=== PATIENT | male | born 1970 | race Caucasian/White ===

== ENCOUNTER 2016-12-18 20:32 | Emergency (ER) | payer MEDICAID, MEDICARE ==
[2016-12-18 21:00] VITALS: BP 138/68
--- NOTE | 2016-12-18 21:14 | UC ---
Dental HPI - HPI Summary HPI Summary: The patient comes in today for: 1. Second to last upper left molar: Onset: six month to a year. Palliative/provocative: Meditation and sucking on a tea bag and Vicodin helps. Quality: Ache Region/radiation: Second to back left upper molar. Severity: 06/26 Time: Constant. Associated symptoms: He has no dental appointment at this time. Fevers: None. Last dental visit: "years." He came via a bus and bike. Primary care provider: Dr. Shah. He states that he takes Adderal. He has a paper which lists a diagnosis of ADHD, schizoaffective disorder, anxiety and depression. According to his I- stop list, he only got one dextroamp-amphet ER 30 mg once on 12-15-2016. He got the same--only 20 mg back in April of 2016, for five days. And some episodically before that--all by different physicians. The patient got hydrocodone-acetaminophen 10-325 #120/30 days supply back on 12-07-16. I called Dr. Shah's office and got Dr. Goodwin. Case was discussed and the decision was only to give him a ketorolac injection--no adderal and not narcotic. * - History of Current Complaint Chief Complaint: UCDentalProblem Stated Complaint: TOOTH PAIN AND MED REFILL Time Seen by Provider: 12/18/16 21:06 Hx Obtained From: Patient - Allergies/Home Medications Allergies/Adverse Reactions: Allergies Allergy/AdvReac Type Severity Reaction Status Date / Time Penicillins [PCN] Allergy Unknown Verified 01/10/16 18:38 Reaction Details Shellfish Allergy Allergy Unknown Verified 01/10/16 18:38 Reaction Details Home Medications: Home Medications Gabapentin TAB(NF) [Neurontin 600 mg TAB(NF)] 1 tab PO TID 12/18/16 [History Confirmed 12/18/16] Hydrocodone-Acetaminophen [Hydrocodone/Acetaminophen 10-325 mg] 1 tab PO QID PRN 12/18/16 [History Confirmed 12/18/16] Olanzapine [Zyprexa Zydis 20 MG] 1 tab PO DAILY 12/18/16 [History Confirmed 12/01] PMH/Surg Hx/FS Hx/Imm Hx Previously Healthy: No - He states that he has ADHD and is supposed to be on adderal. Endocrine History Of: Denies: Diabetes, Thyroid Disease, Hyperthyroidism, Hypothyroidism, Dyslipidemia Cardiovascular History Of: Denies: Cardiac Disorders, Hypertension, Pacemaker/ICD, Myocardial Infarction , Congestive Heart Failure, Atrial Fibrillation, Deep Vein Thrombosis, Bleeding Disorders Respiratory History Of: Reports: Asthma - Albuterol inhaler episodically. Denies: COPD, Bronchitis, Pneumonia, Pulmonary Embolism GI/ History Of: Denies: Gastroesophageal Reflux, Ulcer, Gastrointestinal Bleed, Gall Bladder Disease, Kidney Stones, Diverticulitis, Renal Disease, Urosepsis Neurological History Of: Reports: Migraine Denies: TIA, CVA, Dementia, Seizures Psychological History Of: Reports: Anxiety, Depression, Schizophrenia Denies: Post Traumatic Stress Disorder Cancer History Of: Denies: Lung Cancer, Colorectal Cancer, Breast Cancer, Prostate Cancer, Cervical Cancer Other History Of: Negative For: HIV, Hepatitis B, Hepatitis C, Anticoagulant Therapy - Surgical History Surgical History: Yes Surgery Procedure, Year, and Place: Appendectomy, HERNIA REPAIR - Family History Known Family History: Positive: Hypertension, Other - Cancer in father. Mother has Alzheimers - Social History Occupation: Unemployed Alcohol Use: None Alcohol Amount: took a shot of vodka tonight Substance Use Type: None, Prescribed Substance Use Comment - Amount & Last Used: now vicodin Smoking Status (MU): Heavy Every Day Tobacco Smoker Amount Used/How Often: 1/2 ppd Length of Time of Smoking/Using Tobacco: 25 years Have You Smoked in the Last Year: Yes Household Exposure Type: Cigarettes - Immunization History Most Recent Influenza Vaccination: Pt unable to recall Most Recent Tetanus Shot: pt unable to recall Most Recent Pneumonia Vaccination: N/A Review of Systems Constitutional: Negative Skin: Negative Eyes: Negative ENT: Negative Respiratory: Negative Cardiovascular: Negative Gastrointestinal: Negative Genitourinary: Negative Motor: Negative Neurovascular: Negative All Other Systems Reviewed And Are Negative: Yes Physical Exam Triage Information Reviewed: Yes Appearance: Well-Appearing, No Pain Distress, Well-Nourished Vital Signs: Initial Vital Signs Temp 99 F 12/18/16 20:49 Pulse 68 12/18/16 20:49 Resp 18 12/18/16 20:49 BP 138/68 12/18/16 20:49 Pulse Ox 98 12/18/16 20:49 Vital Signs Reviewed: Yes Eyes: Positive: Conjunctiva Clear. Negative: Discharge ENT: Positive: Hearing grossly normal, TMs normal. Negative: Pharyngeal erythema, Nasal congestion, Nasal drainage, TM bulging, TM dull, TM red, Tonsillar swelling, Tonsillar exudate Dental: Positive: Percussion Tenderness @ - #14, Gross Decay/Caries @. Negative : Dental Fracture @ Neck: Positive: Supple, Nontender, No Lymphadenopathy. Negative: Nuchal Rigidity Respiratory: Positive: Chest non-tender, Lungs clear, No respiratory distress, No accessory muscle use. Negative: Crackles, Wheezing Cardiovascular: Positive: RRR, No Murmur Abdomen Description: Positive: Nontender, No Organomegaly, Soft. Negative: Distended, Guarding Musculoskeletal: Positive: Strength Intact, ROM Intact Neurological: Positive: Alert, Muscle Tone Normal Psychological: Positive: Age Appropriate Behavior, Consolable Skin: Negative: rashes, breakdown Dental Complaint Course/Dx - Course Course Of Treatment: Patient was told that I called Dr. Shah's office and was able to talk to Dr. Goodwin regarding his request for adderal and hydrocodone/ acetaminophen. Because he got a 30 day supply renewed on 12-07-16, and had not been on regular adderal, he won't be getting that from us--he has to get it from Dr. Shah's office. I told the patient this. He acquiesed to this. Will give him a ketorolac injection instead. - Differential Dx/Diagnosis Differential Diagnosis/Dx: Dental Abscess, Dental Caries Provider Diagnoses: Pulpitits. Schizoaffective disorder. Discharge - Discharge Plan Condition: Stable Disposition: HOME Patient Education Materials: Dental Abscess (ED), Dental Caries (ED) Referrals: Prasad Shah MD [Primary Care Provider] - As Soon As Possible
[2016-12-18] MEDS ORDERED: Ketorolac INJ* 60 MG/2 ML VIAL IM ONE (21:47)
== END 2016-12-18 22:21 | disposition home or self-care (01) ==
LOC: UCEAST 20:32
DX: K04.01 Reversible pulpitis (principal); F20.9 Schizophrenia, unspecified; J45.909 Unspecified asthma, uncomplicated; Z88.0 Allergy status to penicillin; F17.210 Nicotine dependence, cigarettes, uncomplicated
CPT/HCPCS: 99212; G0463; J1885

== ENCOUNTER 2017-01-18 20:41 | Emergency (ER) | payer MEDICARE, MEDICAID ==
[2017-01-18] MEDS ORDERED: Clindamycin CAP* 150 MG PO ONE ×2 (22:38)
[2017-01-18] MEDS ORDERED: oxyCODONE/Acetamin 5/325 MG* TAB PO ONE (22:39)
[2017-01-18] MEDS ORDERED: clonazePAM TAB(*) 1 MG PO ONE ×2 (22:40→22:56)
--- NOTE | 2017-01-18 22:46 | ED ---
Constantin Guajardo Anna, scribed for Delgado Cabral MD on 01/18/17 at 2237 . Throat Pain/Nasal Congestion - HPI Summary HPI Summary: Patient is a 46 y/o male coming to [facility] presenting with the sudden onset of acute on chronic, constant dental pain that began today. He describes the severity of the pain as 9/10. He is additionally anxious. He additionally reports having a migraine secondary to the dental pain. He denies fever. His history is significant for fibromyalgia. Patient medications have been reviewed this visit. - History of Current Complaint Chief Complaint: EDDentalPain Time Seen by Provider: 01/18/17 22:29 Hx Obtained From: Patient Onset/Duration: Sudden Onset, Lasting Days, Still Present Severity: Moderate - Allergies/Home Medications Allergies/Adverse Reactions: Allergies Allergy/AdvReac Type Severity Reaction Status Date / Time Penicillins [PCN] Allergy Unknown Verified 01/18/17 20:55 Reaction Details Shellfish Allergy Allergy Unknown Verified 01/18/17 20:55 Reaction Details PMH/Surg Hx/FS Hx/Imm Hx Endocrine/Hematology History: Denies: Hx Anticoagulant Therapy, Hx Diabetes, Hx Thyroid Disease Cardiovascular History: Denies: Hx Congestive Heart Failure, Hx Deep Vein Thrombosis, Hx Hypertension , Hx Myocardial Infarction, Hx Pacemaker/ICD Respiratory History: Reports: Hx Asthma - Albuterol inhaler episodically. Denies: Hx Chronic Obstructive Pulmonary Disease (COPD), Hx Lung Cancer, Hx Pneumonia, Hx Pulmonary Embolism GI History: Reports: Other GI Disorders - Hepatitis B Denies: Hx Gall Bladder Disease, Hx Gastrointestinal Bleed, Hx Ulcer, Hx Urosepsis History: Denies: Hx Kidney Stones, Hx Renal Disease Musculoskeletal History: Reports: Hx Fibromyalgia - 2005 ER visit for medication Neurological History: Reports: Hx Migraine Denies: Hx Dementia, Hx Seizures, Hx Transient Ischemic Attacks (TIA) Psychiatric History: Reports: Hx Anxiety, Hx Depression, Hx Community Mental Health Tx - seen at [facility], Hx Schizophrenia Denies: Hx Eating Disorder, Hx Panic Disorder, Hx of Violent Episodes Against Others - Surgical History Surgery Procedure, Year, and Place: Appendectomy, HERNIA REPAIR - Immunization History Date of Tetanus Vaccine: pt states w/in last 10 years Date of Influenza Vaccine: 2013 Infectious Disease History: Denies: Hx Clostridium Difficile, Hx Hepatitis, Hx Human Immunodeficiency Virus (HIV), Hx of Known/Suspected MRSA, Hx Shingles, Hx Tuberculosis, Hx Known/ Suspected VRE, Hx Known/Suspected VRSA, History Other Infectious Disease, Traveled Outside the [place] in Last 30 Days - Family History Known Family History: Positive: Hypertension, Other - Cancer in father. Mother has Alzheimers - Social History Alcohol Use: None Alcohol Amount: took a shot of vodka tonight Substance Use Type: Reports: None, Prescribed Substance Use Comment - Amount & Last Used: now vicodin Hx Tobacco Use: Yes Smoking Status (MU): Heavy Every Day Tobacco Smoker Amount Used/How Often: 1/2 ppd Length of Time of Smoking/Using Tobacco: 25 years Have You Smoked in the Last Year: Yes Review of Systems Negative: Fever Positive: Dental Pain Positive: Headache Positive: Anxious All Other Systems Reviewed And Are Negative: Yes Physical Exam Triage Information Reviewed: Yes Vital Signs On Initial Exam: Initial Vitals Temp Pulse Resp BP Pulse Ox 98.1 F 82 16 111/75 97 01/18/17 20:50 01/18/17 20:50 01/18/17 20:50 01/18/17 20:50 01/18/17 20:50 Vital Signs Reviewed: Yes Appearance: Positive: Well-Appearing, No Pain Distress Skin: Positive: Warm, Skin Color Reflects Adequate Perfusion, Dry Head/Face: Positive: Normal Head/Face Inspection Eyes: Positive: EOMI, NAIN ENT: Positive: Normal ENT inspection Dental: Positive: Other - Upper left molar has a tawny with some gingival swelling Neck: Positive: Supple, Nontender Respiratory/Lung Sounds: Positive: Clear to Auscultation, Breath Sounds Present Cardiovascular: Positive: RRR Abdomen Description: Positive: Nontender, Soft Bowel Sounds: Positive: Present Musculoskeletal: Positive: Normal, Strength/ROM Intact Neurological: Positive: Normal, Sensory/Motor Intact, Alert, Oriented to Person Place, Time Psychiatric: Positive: Anxious Diagnostics - Vital Signs Vital Signs Temp Pulse Resp BP Pulse Ox 01/18/17 20:50 98.1 F 82 16 111/75 97 - Laboratory Lab Statement: Any lab studies that have been ordered have been reviewed, and results considered in the medical decision making process. EENT Course/Dx - Course Course Of Treatment: NO CRITICAL CARE TIME Assessment/Plan: DISCHARGE HOME STABLE - Diagnoses Provider Diagnoses: Pain, dental, Anxiety Discharge - Discharge Plan Condition: Stable Disposition: HOME Prescriptions: Clindamycin Cap(NF) [Cleocin 300 mg Cap(NF)] 300 mg PO Q6H #38 cap oxyCODONE/Acetamin 5/325 MG* [Percocet 5/325 TAB*] 1 tab PO Q6H PRN #10 tab MDD 4 PRN Reason: Pain Patient Education Materials: Toothache (ED), Anxiety (ED) Referrals: Prasad Shah MD [Primary Care Provider] - Additional Instructions: FOLLOW UP WITH YOUR DOCTOR AND DENTIST. RETURN TO THE EMERGENCY DEPARTMENT FOR ANY WORSENING OF YOUR CONDITION OR QUESTIONS OR CONCERNS. The documentation as recorded by the Constantin multani Anna accurately reflects the service I personally performed and the decisions made by me, Delgado Cabral MD.
[2017-01-18] MEDS ORDERED: clonazePAM TAB(*) 0.5 MG PO ONE (23:00)
[2017-01-18 23:25] VITALS: BP 126/78
== END 2017-01-18 23:22 | disposition home or self-care (01) ==
LOC: ED 20:41
DX: K08.89 Other specified disorders of teeth and supporting structures (principal); R51 Headache; F41.9 Anxiety disorder, unspecified; F17.210 Nicotine dependence, cigarettes, uncomplicated
CPT/HCPCS: 99282; A9270-GY

== ENCOUNTER 2017-01-22 22:38 | Emergency (ER) | payer MEDICARE, MEDICAID ==
[2017-01-22 23:16] VITALS: BP 133/81
[2017-01-23] MEDS ORDERED: LORazepam TAB(*) 1 MG PO ONE (00:37)
--- NOTE | 2017-01-25 18:51 | ED ---
Throat Pain/Nasal Congestion - HPI Summary HPI Summary: Patient presents to ED with CC of dental pain. However, when provider entered the room, patient was very stuporous and unable to fully open his eyes and respond appropriately. When repeatedly asked why he was acting altered, he stated it was d/t pain, but could not elaborate. It was apparent to the provider that the patient was on one or multiple altering medications. He states he is homeless and was in the ED a few days ago and was treated for a dental infection which is failing to improve and he is requesting pain medicine. He is also stating he is very anxious and needs his anti-anxiety medications - asking for a 30 days supply since he is unable to see his PCP until February. He does not appear to be anxious, and instead is falling asleep on physical exam. Provider was able to read through previous visits to see what he has been treated with and ISTOP reveals he recently received: 01/18/2017 01/19/2017 oxycodone-acetaminophen 5-325 mg tablet 10 3 Delgado Cabral MD 01/16/2017 01/17/2017 eszopiclone 3 mg tablet 30 30 Prasad Shah MD 01/05/2017 01/08/2017 clonazepam 2 mg tablet 90 30 Kurt Canales MD 01/05/2017 01/06/2017 hydrocodone-acetaminophen 10-325 mg tablet 120 30 Kurt Canales MD Provider explained to patient that he recently received refills on pain medicine and anxiety medication despite him stating he had not received any medication and she would not be able to refill his prescriptions or give him extra medications since he already has several. It was shown to patient he actually saw his PCP 19 days ago and that he received all the medication which he was asking for today. To this he became very agitated and angry stating the provider was "profiling" him because he was homeless. Provider explained that she could not provide the medications d/t his recent refill and that he should still have several of the doses from both the pain medications (norco) and clomazepam left. Provider apologized for not being able to give the medications , but was happy to continue the physical exam and treat appropriately. He again becomes very angry and begins to leave. He requests a cab. RN made aware and patient leaves. - History of Current Complaint Chief Complaint: EDDentalPain Time Seen by Provider: 01/22/17 23:02 Hx Obtained From: Patient Hx From Patient Unobtainable Due To: Altered Mental Status Onset/Duration: Gradual Onset Severity: Severe - Epiglottits Risk Factors Epiglottis Risk Factors: Negative - Allergies/Home Medications Allergies/Adverse Reactions: Allergies Allergy/AdvReac Type Severity Reaction Status Date / Time Penicillins [PCN] Allergy Unknown Verified 01/18/17 20:55 Reaction Details Shellfish Allergy Allergy Unknown Verified 01/18/17 20:55 Reaction Details PMH/Surg Hx/FS Hx/Imm Hx Previously Healthy: Yes Endocrine/Hematology History: Denies: Hx Anticoagulant Therapy, Hx Diabetes, Hx Thyroid Disease Cardiovascular History: Denies: Hx Congestive Heart Failure, Hx Deep Vein Thrombosis, Hx Hypertension , Hx Myocardial Infarction, Hx Pacemaker/ICD Respiratory History: Reports: Hx Asthma - Albuterol inhaler episodically. Denies: Hx Chronic Obstructive Pulmonary Disease (COPD), Hx Lung Cancer, Hx Pneumonia, Hx Pulmonary Embolism GI History: Reports: Other GI Disorders - Hepatitis B Denies: Hx Gall Bladder Disease, Hx Gastrointestinal Bleed, Hx Ulcer, Hx Urosepsis History: Denies: Hx Kidney Stones, Hx Renal Disease Musculoskeletal History: Reports: Hx Fibromyalgia - 2006 ER visit for medication Neurological History: Reports: Hx Migraine Denies: Hx Dementia, Hx Seizures, Hx Transient Ischemic Attacks (TIA) Psychiatric History: Reports: Hx Anxiety, Hx Depression, Hx Community Mental Health Tx - seen at [facility], Hx Schizophrenia Denies: Hx Eating Disorder, Hx Panic Disorder, Hx of Violent Episodes Against Others - Surgical History Surgery Procedure, Year, and Place: Appendectomy, HERNIA REPAIR Hx Anesthesia Reactions: No - Immunization History Date of Tetanus Vaccine: pt states w/in last 10 years Date of Influenza Vaccine: 2014 Immunizations Up to Date: Unable to Obtain/Confirm Infectious Disease History: No Infectious Disease History: Denies: Hx Clostridium Difficile, Hx Hepatitis, Hx Human Immunodeficiency Virus (HIV), Hx of Known/Suspected MRSA, Hx Shingles, Hx Tuberculosis, Hx Known/ Suspected VRE, Hx Known/Suspected VRSA, History Other Infectious Disease, Traveled Outside the [place] in Last 30 Days - Family History Known Family History: Positive: None - reviewed & noncontributory, Hypertension , Other - Cancer in father. Mother has Alzheimers - Social History Occupation: Employed Part-time Lives: [facility] - [facility] Alcohol Use: None Alcohol Amount: took a shot of vodka tonight Hx Substance Use: Yes Substance Use Type: Reports: Prescribed Substance Use Comment - Amount & Last Used: now vicodin Hx Tobacco Use: Yes Smoking Status (MU): Heavy Every Day Tobacco Smoker Amount Used/How Often: 1/2 ppd Length of Time of Smoking/Using Tobacco: 25 years Have You Smoked in the Last Year: Yes Review of Systems Constitutional: Negative Eyes: Negative Positive: Dental Pain Respiratory: Negative Positive: no symptoms reported, see HPI Musculoskeletal: Negative Positive: Slurred Speech Positive: Anxious All Other Systems Reviewed And Are Negative: Yes Physical Exam Triage Information Reviewed: Yes Vital Signs On Initial Exam: Initial Vitals Temp Pulse Resp BP Pulse Ox 98.1 F 87 16 142/80 97 01/22/17 22:42 01/22/17 22:42 01/22/17 22:42 01/22/17 22:42 01/22/17 22:42 Vital Signs Reviewed: Yes Completion Of Physical Exam Limited Due To: Altered Mental Status Appearance: Positive: Well-Appearing, Well-Nourished Skin: Positive: Warm, Skin Color Reflects Adequate Perfusion Head/Face: Positive: Normal Head/Face Inspection, Temporal Artery Tenderness Neck: Positive: Nontender, No Lymphadenopathy Respiratory/Lung Sounds: Positive: Breath Sounds Present Cardiovascular: Positive: Normal Musculoskeletal: Positive: Strength/ROM Intact Neurological: Positive: Abnormal Gait, Disoriented, Slurred Speech, Other - not oriented to time, but oriented to person and place Psychiatric: Positive: Normal AVPU Assessment: Verbal (Reponds To) - [place] Coma Scale Best Eye Response: 4 - Spontaneous Best Motor Response: 6 - Obeys Commands Best Verbal Response: 4 - Confused Coma Scale Total: 15 Diagnostics - Vital Signs Vital Signs Temp Pulse Resp BP Pulse Ox 01/22/17 23:12 98.4 F 72 17 133/81 01/22/17 22:51 98.1 F 87 16 142/80 97 01/22/17 22:42 98.1 F 87 16 142/80 97 - Laboratory Lab Statement: Any lab studies that have been ordered have been reviewed, and results considered in the medical decision making process. EENT Course/Dx - Course Course Of Treatment: See above in HPI for full course of treatment. - Differential Diagnoses Differential Diagnoses: Other - dental pain, body pain, medication seeking, refills - Diagnoses Provider Diagnoses: Pain, dental Discharge - Discharge Plan Condition: Stable Disposition: HOME Referrals: Prasad Shah MD [Primary Care Provider] - Additional Instructions: Follow up with PCP. You have been diagnosed with dental pain and anxiety. Salt water rinses several times per day will improve healing time. Ibuprofen 600mg three times daily with meals for discomfort. Follow up with a dentist for routine care to prevent recurrence of infections. If fever, worsening pain or swelling develops, see your PCP, dentist or come back to the Emergency Department.
== END 2017-01-23 00:55 | disposition home or self-care (01) ==
LOC: ED 22:38
DX: K08.89 Other specified disorders of teeth and supporting structures (principal); F17.210 Nicotine dependence, cigarettes, uncomplicated
CPT/HCPCS: 99283

== ENCOUNTER 2017-03-03 20:18 | Emergency (ER) | payer MEDICARE, MEDICAID ==
[2017-03-03] MEDS ORDERED: NS 0.9% 1000 ML* 1,000 ML IV ONE (20:48)
[2017-03-03] MEDS ORDERED: clonazePAM TAB(*) 1 MG PO ONE ×2 (20:48→21:41)
[2017-03-03] MEDS ORDERED: diPHENhydraMINE IV* 50 MG/ML 1 ml VIAL (BENADRYL) IV ONE (20:48)
[2017-03-03] MEDS ORDERED: Ketorolac INJ* 30 MG/ML 1 ML VIAL IV PUSH ONE (20:49)
[2017-03-03] MEDS ORDERED: Ondansetron INJ* 2 MG/ML VIAL IV ONE (20:49)
--- NOTE | 2017-03-03 20:55 | ED ---
Headache - HPI Summary HPI Summary: 46M presents with typically migraine for a day. He states he took a fioricet without relief. He states the headache wraps around to the back of his head and is throbbing in nature which is different. He states this is not the worst headache of his life. He admits to photophobia. He states he is sick with an upper resp infection and is currently on a steroid and a zpack for the infection. He admits to a cough but denies any SOB. He has been using his inhaler. Also admits to anxiety and says that he has ran out of his klonipin. He states he has been more anxious and has been taking more of his klonipin. He says he spoke to his primary about running and they are suppose to refill it. - History Of Current Complaint Chief Complaint: EDHeadache Stated Complaint: MIGRAINE/ANXIETY Time Seen by Provider: 03/03/17 20:34 - Allergies/Home Medications Allergies/Adverse Reactions: Allergies Allergy/AdvReac Type Severity Reaction Status Date / Time Penicillins [PCN] Allergy Unknown Verified 03/03/17 20:40 Reaction Details Shellfish Allergy Allergy Unknown Verified 03/03/17 20:40 Reaction Details PMH/Surg Hx/FS Hx/Imm Hx Endocrine/Hematology History: Denies: Hx Anticoagulant Therapy, Hx Diabetes, Hx Thyroid Disease Cardiovascular History: Denies: Hx Congestive Heart Failure, Hx Deep Vein Thrombosis, Hx Hypertension , Hx Myocardial Infarction, Hx Pacemaker/ICD Respiratory History: Reports: Hx Asthma - Albuterol inhaler episodically. Denies: Hx Chronic Obstructive Pulmonary Disease (COPD), Hx Lung Cancer, Hx Pneumonia, Hx Pulmonary Embolism GI History: Reports: Other GI Disorders - Hepatitis B Denies: Hx Gall Bladder Disease, Hx Gastrointestinal Bleed, Hx Ulcer, Hx Urosepsis History: Denies: Hx Kidney Stones, Hx Renal Disease Musculoskeletal History: Reports: Hx Fibromyalgia - 2006 ER visit for medication Neurological History: Reports: Hx Migraine Denies: Hx Dementia, Hx Seizures, Hx Transient Ischemic Attacks (TIA) Psychiatric History: Reports: Hx Anxiety, Hx Depression, Hx Community Mental Health Tx - seen at [facility], Hx Schizophrenia Denies: Hx Eating Disorder, Hx Panic Disorder, Hx of Violent Episodes Against Others - Surgical History Surgery Procedure, Year, and Place: Appendectomy, HERNIA REPAIR Hx Anesthesia Reactions: No - Immunization History Date of Tetanus Vaccine: pt states w/in last 10 years Date of Influenza Vaccine: 2013 Infectious Disease History: No Infectious Disease History: Denies: Hx Clostridium Difficile, Hx Hepatitis, Hx Human Immunodeficiency Virus (HIV), Hx of Known/Suspected MRSA, Hx Shingles, Hx Tuberculosis, Hx Known/ Suspected VRE, Hx Known/Suspected VRSA, History Other Infectious Disease, Traveled Outside the [place] in Last 30 Days - Family History Known Family History: Positive: None - reviewed & noncontributory, Hypertension , Other - Cancer in father. Mother has Alzheimers - Social History Alcohol Use: Rare Alcohol Amount: took a shot of vodka tonight Hx Substance Use: Yes Substance Use Type: Reports: Marijuana, Prescribed Substance Use Comment - Amount & Last Used: now vicodin Hx Tobacco Use: Yes Smoking Status (MU): Heavy Every Day Tobacco Smoker Amount Used/How Often: 1/2 ppd Length of Time of Smoking/Using Tobacco: 25 years Have You Smoked in the Last Year: Yes Review of Systems Negative: Fever Positive: Nasal Discharge Negative: Chest Pain Positive: Cough. Negative: Shortness Of Breath Negative: Abdominal Pain Positive: Headache All Other Systems Reviewed And Are Negative: Yes Physical Exam Triage Information Reviewed: Yes Vital Signs On Initial Exam: Initial Vitals Temp Pulse Resp BP Pulse Ox 97.8 F 90 18 127/78 99 03/03/17 20:21 03/03/17 20:21 03/03/17 20:21 03/03/17 20:21 03/03/17 20:21 Vital Signs Reviewed: Yes Appearance: Positive: Pain Distress Skin: Positive: Warm, Dry Head/Face: Positive: Normal Head/Face Inspection Eyes: Positive: Normal, EOMI, NAIN, Conjunctiva Clear ENT: Positive: Normal ENT inspection, Pharynx normal, Nasal congestion, TMs normal Neck: Positive: Supple, Nontender, No Lymphadenopathy Respiratory/Lung Sounds: Positive: Clear to Auscultation, Breath Sounds Present Cardiovascular: Positive: Normal, RRR Neurological: Positive: Sensory/Motor Intact, Alert, Oriented to Person Place, Time, CN Intact II-III, Heel to Toe, Finger to Nose - [place] Coma Scale Best Eye Response: 4 - Spontaneous Best Motor Response: 6 - Obeys Commands Best Verbal Response: 5 - Oriented Diagnostics - Vital Signs Vital Signs Temp Pulse Resp BP Pulse Ox 03/03/17 20:40 97.8 F 90 18 127/78 99 03/03/17 20:21 97.8 F 90 18 127/78 99 - Laboratory Result Diagrams: 03/03/17 20:55 03/03/17 20:55 Lab Statement: Any lab studies that have been ordered have been reviewed, and results considered in the medical decision making process. - CT brain CT Interpretation: Positive (See Comments) - IMPRESSION: Mild degree of paranasal sinus mucosal disease, slightly improved when compared to the previous CT of the brain, without CT evidence of acute intracranial abnormality. CT Interpretation Completed By: Radiologist Re-Evaluation - Re-Evaluation First Eval Change: Improved Comment: feel asleep and says migraine is almost gone Headache Course/Dx - Course Course Of Treatment: 46M presents with migraine headahce for a day. says only think different is it is more throbbing in nature than usually so got CT which was normal. patient currently has upper resp infection so that explains wbc do not suspect patient has mengitidis. normal neuro exam. gave doreen told to follow up with primary about anxiety medications. patient given sumatriptan, benadryl, toradol, and zofran and migraine improved. suspect due to upper resp infection causing migraine. patient understands and agrees with plan - Diagnoses Differential Diagnosis/HQI/PQRI: Migraine, Sinus Headache, Tension Headache Provider Diagnoses: Headache Discharge - Discharge Plan Condition: Good Disposition: HOME Patient Education Materials: Migraine Headache (ED) Referrals: Prasad Shah MD [Primary Care Provider] - Additional Instructions: Take Tylenol or ibuprofen for pain every 6 hours IF migraine returns take a Benadryl, zofran and ibuprofen and drink some fluids Can also try sudafed for nasal congestion Follow up with primary about anxiety and headache within 2 days Return to ED if develop fever, neck stiffness, or any new or worsening symptoms
[2017-03-03 21:01] LABS: Hematocrit 41 % (42-52); Hemoglobin 13.4 g/dl (14.0-18.0); Mean Corpuscular HGB Conc 33 g/dl (31-36); Mean Corpuscular Hemoglobin 30 pg (27-31); Mean Corpuscular Volume 91 fL (80-94); Mean Platelet Volume 8 um3 (7.4-10.4); Red Blood Count 4.47 10^6/ul (4.0-5.4); Red Cell Distribution Width 16 % (10.5-15); White Blood Count 14.5 10^3/ul (3.5-10.8)
[2017-03-03 21:34] LABS: Albumin 4.4 g/dL (3.2-5.2); BUN/Creatinine Ratio 8.9 (8-20); EGFR African American 117.4 (>60); EGFR Non-African American 91.3 (>60); Globulin 2.1 g/dL (2-4); Potassium 3.4 mmol/L (3.5-5.0); Total Bilirubin 0.3 mg/dL (0.2-1.0); Total Protein 6.5 g/dL (6.4-8.9)
[2017-03-03] MEDS ORDERED: SUMAtriptan TAB* 50 MG PO ONE (21:45)
[2017-03-03] MEDS ORDERED: clonazePAM TAB(*) 0.5 MG PO ONE ×3 (22:00)
--- NOTE | 2017-03-03 22:06 | RAD ---
INDICATION: Posterior headache COMPARISON: Most recent CT of the brain is dated December 21, 2015 TECHNIQUE: Contiguous axial sections of the brain were obtained from the skull base to the vertex without contrast. FINDINGS: The ventricles, cisterns and sulci are within normal limits. The cordova-white matter differentiation is adequately maintained and there is no sulcal effacement. No significant focal abnormality or mass effect is present. There is no evidence for intracranial hemorrhage. No significant focal osseous abnormality is present. Again seen are frothy secretions in the right maxillary sinus. There is a small amount of fluid in the dependent portion of the left sphenoid sinus. The remaining paranasal sinuses are adequately aerated. IMPRESSION: Mild degree of paranasal sinus mucosal disease, slightly improved when compared to the previous CT of the brain, without CT evidence of acute intracranial abnormality.
[2017-03-03] MEDS ORDERED: Ondansetron ODT TAB* 4 MG PO ONE (23:11)
[2017-03-03 23:48] VITALS: BP 129/69
== END 2017-03-03 23:57 | disposition home or self-care (01) ==
LOC: ED 20:18
DX: R51 Headache (principal); R05 Cough; F17.210 Nicotine dependence, cigarettes, uncomplicated
CPT/HCPCS: 36415; 70450; 80053; 83735; 85025; 86141; 96374; 96375; 99282; A9270-GY; J1200; J1885; J2405

== ENCOUNTER → 2017-03-22 06:40 | Emergency (ER) | payer MEDICARE, MEDICAID ==
[~2017-03-22 06:40] MED LIST: Albuterol 2.5 MG/3 ML NEB.SOL* (0.083%) INH ONE
--- NOTE | 2017-03-22 08:01 | RAD ---
INDICATION: Cough COMPARISON: December 21, 2015 TECHNIQUE: PA and lateral dual-energy views were obtained. FINDINGS: Bones/Soft Tissues: There are no acute bony findings. Cardiomediastinal: The cardiomediastinal silhouette is normal. Lungs: There are no infiltrates. Pleura: There are no pleural effusions. Other: None IMPRESSION: NO ACTIVE DISEASE.
[2017-03-22 10:05] VITALS: BP 127/89
--- NOTE | 2017-03-25 08:39 | ED ---
Augustine Guajardo Salem, scribed for Barrett Robbins MD on 03/22/17 at 0814 . Shortness of Breath - HPI Summary HPI Summary: Patient is a 46 y/o M who presents to the ED with SOB and coughing. He states that he had PNA last summer and was hospitalized in [facility], but that he never really recovered from it. He reports night sweats and congestion, but denies rhinorrhea or sore throat. PMHx significant for asthma. Pt states that he uses Albuterol for his asthma. - History of Current Complaint Chief Complaint: EDShortnessOfBreath Time Seen by Provider: 03/22/17 08:10 Hx Obtained From: Patient Onset/Duration: Gradual Onset, Still Present Timing: Constant Current Severity: Moderate Aggrevating Factors: Nothing Alleviating Factors: Nothing Associated Signs & Symptoms: Cough (Nonproductive) - Allergy/Home Medications Allergies/Adverse Reactions: Allergies Allergy/AdvReac Type Severity Reaction Status Date / Time Penicillins [PCN] Allergy Unknown Verified 03/22/17 06:56 Reaction Details Shellfish Allergy Allergy Unknown Verified 03/22/17 06:56 Reaction Details PMH/Surg Hx/FS Hx/Imm Hx Endocrine/Hematology History: Denies: Hx Anticoagulant Therapy, Hx Diabetes, Hx Thyroid Disease Cardiovascular History: Denies: Hx Congestive Heart Failure, Hx Deep Vein Thrombosis, Hx Hypertension , Hx Myocardial Infarction, Hx Pacemaker/ICD Respiratory History: Reports: Hx Asthma - Albuterol inhaler episodically. Denies: Hx Chronic Obstructive Pulmonary Disease (COPD), Hx Lung Cancer, Hx Pneumonia, Hx Pulmonary Embolism GI History: Reports: Other GI Disorders - Hepatitis B Denies: Hx Gall Bladder Disease, Hx Gastrointestinal Bleed, Hx Ulcer, Hx Urosepsis History: Denies: Hx Kidney Stones, Hx Renal Disease Musculoskeletal History: Reports: Hx Fibromyalgia - 2006 ER visit for medication Neurological History: Reports: Hx Migraine Denies: Hx Dementia, Hx Seizures, Hx Transient Ischemic Attacks (TIA) Psychiatric History: Reports: Hx Anxiety, Hx Depression, Hx Community Mental Health Tx - seen at [facility], Hx Schizophrenia Denies: Hx Eating Disorder, Hx Panic Disorder, Hx of Violent Episodes Against Others - Surgical History Surgery Procedure, Year, and Place: Appendectomy, HERNIA REPAIR Hx Anesthesia Reactions: No - Immunization History Date of Tetanus Vaccine: pt states w/in last 10 years Date of Influenza Vaccine: 2013 Infectious Disease History: No Infectious Disease History: Denies: Hx Clostridium Difficile, Hx Hepatitis, Hx Human Immunodeficiency Virus (HIV), Hx of Known/Suspected MRSA, Hx Shingles, Hx Tuberculosis, Hx Known/ Suspected VRE, Hx Known/Suspected VRSA, History Other Infectious Disease, Traveled Outside the [place] in Last 30 Days - Family History Known Family History: Positive: Hypertension, Other - Cancer in father. Mother has Alzheimers - Social History Alcohol Use: None Alcohol Amount: took a shot of vodka tonight Hx Substance Use: Yes Substance Use Type: Reports: Marijuana, Prescribed Substance Use Comment - Amount & Last Used: now vicodin Hx Tobacco Use: Yes Smoking Status (MU): Heavy Every Day Tobacco Smoker Amount Used/How Often: 1/2 ppd Length of Time of Smoking/Using Tobacco: 25 years Have You Smoked in the Last Year: Yes Review of Systems Positive: Skin Diaphoresis - Night sweats. . Negative: Fever, Chills Negative: Erythema Negative: Sore Throat, Nasal Discharge Negative: Chest Pain Positive: Shortness Of Breath, Cough, Other - Congestion. Negative: Abdominal Pain, Vomiting, Nausea Negative: dysuria, hematuria Negative: Rash Neurological: Other - No dizziness. All Other Systems Reviewed And Are Negative: Yes Physical Exam - Summary Physical Exam Summary: Constitutional: Well-developed, Well-nourished, Alert. (-) Distressed Skin: Warm, Dry HENT: Normocephalic; Atraumatic Eyes: Conjunctiva normal Neck: Musculoskeletal ROM normal neck. (-) JVD, (-) Stridor, (-) Tracheal deviation Cardio: Rhythm regular, rate normal, Heart sounds normal; Intact distal pulses; The pedal pulses are 2+ and symmetric. Radial pulses are 2+ and symmetric. (-) Murmur Pulmonary/Chest wall: Effort normal. (-) Respiratory distress, (-) Wheezes, (-) Rales Abd: Soft, (-) Tenderness, (-) Distension, (-) Guarding, (-) Rebound Musculoskeletal: (-) Edema Lymph: (-) Cervical adenopathy Neuro: Alert, Oriented x3 Psych: Mood and affect Normal Triage Information Reviewed: Yes Vital Signs On Initial Exam: Initial Vitals Temp Pulse Resp BP Pulse Ox 97 F 68 20 126/74 100 03/22/17 06:44 03/22/17 06:44 03/22/17 06:44 03/22/17 06:44 03/22/17 06:44 Vital Signs Reviewed: Yes - [place] Coma Scale Coma Scale Total: 15 Diagnostics - Vital Signs Vital Signs Temp Pulse Resp BP Pulse Ox 03/22/17 06:54 97.4 F 63 16 106/75 97 03/22/17 06:44 97 F 68 20 126/74 100 - Laboratory Lab Statement: Any lab studies that have been ordered have been reviewed, and results considered in the medical decision making process. - Radiology CXR Radiology Interpretation Completed By: Radiologist - IMPRESSION: NO ACTIVE DISEASE. Re-Evaluation - Re-Evaluation First Eval Re-Evaluation Time: 09:46 Comment: Discussed plan. No evidence of PNA. Not wheezing. Not labored. Tolerating PO. Course/Dx - Course Course Of Treatment: 46 y/o presents with SOB and coughing. He reports night sweats and congestion, but denies rhinorrhea or sore throat. PMHx significant for asthma. Pt states that he uses Albuterol for his asthma. He received Albuterol in ED course. CXR was negative. Pt is stable and will be DC'd. - Diagnoses Provider Diagnoses: Cough Discharge - Discharge Plan Condition: Stable Disposition: HOME Patient Education Materials: Acute Cough (ED) Referrals: Prasad Shah MD [Primary Care Provider] - Additional Instructions: Please follow up with your primary care provider in a few days. RETURN TO THE EMERGENCY DEPARTMENT FOR CHANGING OR WORSENING SYMPTOMS The documentation as recorded by the Augustine multani Salem accurately reflects the service I personally performed and the decisions made by me, Barrett Robbins MD.
== END | disposition home or self-care (01) ==
LOC: ED 06:40
DX: R06.02 Shortness of breath (principal); R05 Cough; F17.210 Nicotine dependence, cigarettes, uncomplicated
CPT/HCPCS: 71020; 94640; 99284

== ENCOUNTER 2017-03-25 06:44 | Emergency (ER) | payer MEDICARE, MEDICAID ==
[2017-03-25 06:57] VITALS: BP 133/83
[2017-03-25] MEDS ORDERED: Naproxen TAB* 250 MG PO ONE (08:43)
[2017-03-25] MEDS ORDERED: clonazePAM TAB(*) 1 MG PO ONE (08:46)
[2017-03-25] MEDS ORDERED: clonazePAM TAB(*) 0.5 MG PO ONE (09:00)
--- NOTE | 2017-04-10 09:49 | ED ---
Luis Manuel Guajardo SooYoung, scribed for Barrett Robbins MD on 03/25/17 at 0824 . Complex/Multi-Sys Presentation - HPI Summary HPI Summary: A 46 y/o M presents to ED with c/o acute on chronic diffuse body pain. Recent dx : fibromyalgia. Associated sx: migraine. Pain described as a "burning sensation in bone marrow;" states he feels like he's on fire. Pt was seen in ED on 2016 for anxiety and difficulty breathing. Denies SI. Pt's father recently. Pt is requesting a referral to psychiatrist and pain management clinic. Says his memory is bad, having difficulty thinking of anything besides the pain. Prev Rx: oxycotin 4x a day but stopped. Additional PMHx: anxiety, schizophrenia, depression. - History Of Current Complaint Hx Obtained From: Patient Onset/Duration: Still Present Timing: Constant Character: Migraine Associated Signs And Symptoms: Positive: Other - pos: anxiety <Barrett Robbins - Last Filed: 03/25/17 09:08> <Loni Moser - Last Filed: 04/06/17 11:40> - History Of Current Complaint Chief Complaint: EDGeneral Time Seen by Provider: 03/25/17 08:03 - Allergies/Home Medications Allergies/Adverse Reactions: Allergies Allergy/AdvReac Type Severity Reaction Status Date / Time Penicillins [PCN] Allergy Unknown Verified 03/25/17 06:58 Reaction Details Shellfish Allergy Allergy Unknown Verified 03/25/17 06:58 Reaction Details PMH/Surg Hx/FS Hx/Imm Hx Previously Healthy: No Endocrine/Hematology History: Denies: Hx Anticoagulant Therapy, Hx Diabetes, Hx Thyroid Disease Cardiovascular History: Denies: Hx Congestive Heart Failure, Hx Deep Vein Thrombosis, Hx Hypertension , Hx Myocardial Infarction, Hx Pacemaker/ICD Respiratory History: Reports: Hx Asthma - Albuterol inhaler episodically. Denies: Hx Chronic Obstructive Pulmonary Disease (COPD), Hx Lung Cancer, Hx Pneumonia, Hx Pulmonary Embolism GI History: Reports: Other GI Disorders - Hepatitis B Denies: Hx Gall Bladder Disease, Hx Gastrointestinal Bleed, Hx Ulcer, Hx Urosepsis History: Denies: Hx Kidney Stones, Hx Renal Disease Musculoskeletal History: Reports: Hx Fibromyalgia - 2005 ER visit for medication Neurological History: Reports: Hx Migraine Denies: Hx Dementia, Hx Seizures, Hx Transient Ischemic Attacks (TIA) Psychiatric History: Reports: Hx Anxiety, Hx Depression, Hx Community Mental Health Tx - seen at [facility], Hx Schizophrenia Denies: Hx Eating Disorder, Hx Panic Disorder, Hx of Violent Episodes Against Others - Surgical History Surgery Procedure, Year, and Place: Appendectomy, HERNIA REPAIR Hx Anesthesia Reactions: No - Immunization History Date of Tetanus Vaccine: pt states w/in last 10 years Date of Influenza Vaccine: 2013 Infectious Disease History: No Infectious Disease History: Denies: Hx Clostridium Difficile, Hx Hepatitis, Hx Human Immunodeficiency Virus (HIV), Hx of Known/Suspected MRSA, Hx Shingles, Hx Tuberculosis, Hx Known/ Suspected VRE, Hx Known/Suspected VRSA, History Other Infectious Disease, Traveled Outside the [place] in Last 30 Days - Family History Known Family History: Positive: Hypertension, Other - Cancer in father. Mother has Alzheimers - Social History Occupation: Disabled Lives: Alone Alcohol Amount: took a shot of vodka tonight Hx Substance Use: Yes Substance Use Type: Reports: Marijuana, Prescribed Substance Use Comment - Amount & Last Used: now vicodin Hx Tobacco Use: Yes Smoking Status (MU): Heavy Every Day Tobacco Smoker Amount Used/How Often: 1/2 ppd Length of Time of Smoking/Using Tobacco: 25 years Have You Smoked in the Last Year: Yes <Barrett Robbins - Last Filed: 03/25/17 09:08> Review of Systems Negative: Fever, Chills Negative: Erythema Negative: Sore Throat Negative: Chest Pain Negative: Shortness Of Breath, Cough Negative: Abdominal Pain, Vomiting, Nausea Negative: dysuria, hematuria Positive: Other - diffuse body pain. Negative: Edema Negative: Rash Neurological: Other - neg: dizziness Positive: Headache - migraine Positive: Anxious All Other Systems Reviewed And Are Negative: Yes <Barrett Robbins - Last Filed: 03/25/17 09:08> Physical Exam - Summary Physical Exam Summary: Constitutional: Well-developed, Well-nourished, Alert. (-) Distressed Skin: Warm, Dry HENT: Normocephalic; Atraumatic Eyes: Conjunctiva normal Neck: Musculoskeletal ROM normal neck. (-) JVD, (-) Stridor, (-) Tracheal deviation Cardio: Rhythm regular, rate normal, Heart sounds normal; Intact distal pulses; The pedal pulses are 2+ and symmetric. Radial pulses are 2+ and symmetric. (-) Murmur Pulmonary/Chest wall: Effort normal. (-) Respiratory distress, (-) Wheezes, (-) Rales Abd: Soft, (-) Tenderness, (-) Distension, (-) Guarding, (-) Rebound Musculoskeletal: (-) Edema Lymph: (-) Cervical adenopathy Neuro: Alert, Oriented x3 Psych: ANXIOUS Triage Information Reviewed: Yes Vital Signs On Initial Exam: Initial Vitals Temp Pulse Resp BP Pulse Ox 97.9 F 67 16 133/83 97 03/25/17 06:50 03/25/17 06:50 03/25/17 06:50 03/25/17 06:50 03/25/17 06:50 Vital Signs Reviewed: Yes <Barrett Robbins - Last Filed: 03/25/17 09:08> Vital Signs On Initial Exam: Initial Vitals Temp Pulse Resp BP Pulse Ox 97.9 F 67 16 133/83 97 03/25/17 06:50 03/25/17 06:50 03/25/17 06:50 03/25/17 06:50 03/25/17 06:50 <Loni Moser F - Last Filed: 04/06/17 11:40> Diagnostics - Vital Signs Vital Signs Temp Pulse Resp BP Pulse Ox 03/25/17 07:38 97.9 F 67 16 133/83 97 03/25/17 06:50 97.9 F 67 16 133/83 97 <SpringviewBarrett - Last Filed: 03/25/17 09:08> - Vital Signs Vital Signs Temp Pulse Resp BP Pulse Ox 03/25/17 07:38 97.9 F 67 16 133/83 97 03/25/17 06:50 97.9 F 67 16 133/83 97 <Loni Moser F - Last Filed: 04/06/17 11:40> Complex Multi-Symp Course/Dx Course Of Treatment: Pt is a 46 y/o M presenting with acute on chronic diffuse body pain. Recent dx: fibromyalgia. Associated sx: migraine. Pt was seen in ED on 03/22/2017 for anxiety and difficulty breathing. Denies SI. Pt's father recently. Says his memory is bad, having difficulty thinking of anything besides the pain. Prev Rx: oxycotin 4x a day but stopped. Additional PMHx: anxiety; schizophrenia. Pt declined MHE today. Pt given Clonapin, Naproxen in ED. D/C home with Naproxen to f/u with Dr. Tong for pain management, Dr. Paez for pyschiatry. <ItzelBarrett - Last Filed: 03/25/17 09:08> <Loni Moser - Last Filed: 04/06/17 11:40> - Diagnoses Provider Diagnoses: Chronic pain, Chronic anxiety Discharge <Barrett Robbins - Last Filed: 03/25/17 09:08> <Loni Moser F - Last Filed: 04/06/17 11:40> - Discharge Plan Condition: Stable Disposition: HOME Prescriptions: Naproxen TAB* [Naprosyn 250 mg TAB*] 500 mg PO Q8H PRN #30 tab PRN Reason: Pain - Severe Patient Education Materials: Chronic Pain (ED), Anxiety (ED), Naproxen (By mouth) Referrals: Prasad Shah MD [Primary Care Provider] - Jay Tong MD [Medical Doctor] - 1 Week Genna Paez MD [Medical Doctor] - 1 Week Additional Instructions: Follow up with Dr. Paez, psychiatry, this week. Follow up with Dr. Tong for pain management this week. Return to the emergency department for changing or worsening or persistent symptoms. The documentation as recorded by the Luis Manuel multani SooYoung accurately reflects the service I personally performed and the decisions made by , Barrett Robbins MD.
== END 2017-03-25 09:14 | disposition home or self-care (01) ==
LOC: ED 06:44
DX: G89.29 Other chronic pain (principal); F41.9 Anxiety disorder, unspecified; G43.909 Migraine, unspecified, not intractable, without status migrainosus; M79.7 Fibromyalgia; Z88.0 Allergy status to penicillin; Z91.013 Allergy to seafood; J45.909 Unspecified asthma, uncomplicated; F12.90 Cannabis use, unspecified, uncomplicated; F17.210 Nicotine dependence, cigarettes, uncomplicated
CPT/HCPCS: 99282; A9270-GY

== ENCOUNTER 2017-03-30 14:34 | Emergency (ER) | payer MEDICARE, MEDICAID ==
[2017-03-30] MEDS ORDERED: clonazePAM TAB(*) 0.5 MG PO ONE (17:05)
[2017-03-30 17:30] VITALS: BP 132/74
--- NOTE | 2017-03-30 18:51 | ED ---
Vin Guajardo Auryana, scribed for Gus Lugo MD on 03/30/17 at 1706 . Psychiatric Complaint - HPI Summary HPI Summary: 46 year old male presents to ED for an anxiety attack reporting he "just wants this fear to go away". He denies any suicidal ideation or homicidal ideation. He is on Klonapin (2 mg, TID) but reports that he misplaced his bottle of medication - unsure if he lost it or not. PMHx is significant for anxiety, schizophrenia, ADHD, depression, and seizures. - History Of Current Complaint Chief Complaint: EDMentalHealth Time Seen by Provider: 03/30/17 16:53 Hx Obtained From: Patient Onset/Duration: Sudden Onset Timing: Hours Severity Initially: Moderate Severity Currently: Moderate Character: Fearful, Anxious Associated Signs And Symptoms: Negative: Negative - anxiety but no SI/HI Related History: Positive For: Prior Psychiatric Issues Has Suicidal: Denies: Thoughts Has Homicidal: Denies: Thoughts Recent Stressor(s): loss of medication - Allergies/Home Medications Allergies/Adverse Reactions: Allergies Allergy/AdvReac Type Severity Reaction Status Date / Time Penicillins [PCN] Allergy Unknown Verified 03/25/17 06:58 Reaction Details Shellfish Allergy Allergy Unknown Verified 03/25/17 06:58 Reaction Details PMH/Surg Hx/FS Hx/Imm Hx Endocrine/Hematology History: Denies: Hx Anticoagulant Therapy, Hx Diabetes, Hx Thyroid Disease Cardiovascular History: Denies: Hx Congestive Heart Failure, Hx Deep Vein Thrombosis, Hx Hypertension , Hx Myocardial Infarction, Hx Pacemaker/ICD Respiratory History: Reports: Hx Asthma - Albuterol inhaler episodically. Denies: Hx Chronic Obstructive Pulmonary Disease (COPD), Hx Lung Cancer, Hx Pneumonia, Hx Pulmonary Embolism GI History: Reports: Other GI Disorders - Hepatitis B Denies: Hx Gall Bladder Disease, Hx Gastrointestinal Bleed, Hx Ulcer, Hx Urosepsis History: Denies: Hx Kidney Stones, Hx Renal Disease Musculoskeletal History: Reports: Hx Fibromyalgia - 2005 ER visit for medication Neurological History: Reports: Hx Migraine Denies: Hx Dementia, Hx Seizures, Hx Transient Ischemic Attacks (TIA) Psychiatric History: Reports: Hx Anxiety, Hx Depression, Hx Community Mental Health Tx - seen at [facility], Hx Schizophrenia Denies: Hx Eating Disorder, Hx Panic Disorder, Hx of Violent Episodes Against Others - Surgical History Surgery Procedure, Year, and Place: Appendectomy, HERNIA REPAIR Hx Anesthesia Reactions: No - Immunization History Date of Tetanus Vaccine: pt states w/in last 10 years Date of Influenza Vaccine: 2013 Infectious Disease History: Denies: Hx Clostridium Difficile, Hx Hepatitis, Hx Human Immunodeficiency Virus (HIV), Hx of Known/Suspected MRSA, Hx Shingles, Hx Tuberculosis, Hx Known/ Suspected VRE, Hx Known/Suspected VRSA, History Other Infectious Disease, Traveled Outside the [place] in Last 30 Days - Family History Known Family History: Positive: Hypertension, Other - Cancer in father. Mother has Alzheimers - Social History Alcohol Use: None Alcohol Amount: took a shot of vodka tonight Hx Substance Use: Yes Substance Use Type: Reports: Marijuana, Prescribed Substance Use Comment - Amount & Last Used: now vicodin Hx Tobacco Use: Yes Smoking Status (MU): Heavy Every Day Tobacco Smoker Amount Used/How Often: 1/2 ppd Length of Time of Smoking/Using Tobacco: 25 years Have You Smoked in the Last Year: Yes Review of Systems Constitutional: Negative Negative: Fever Eyes: Negative ENT: Negative Cardiovascular: Negative Respiratory: Negative Gastrointestinal: Negative Genitourinary: Negative Musculoskeletal: Negative Skin: Negative Neurological: Negative Positive: Anxious All Other Systems Reviewed And Are Negative: Yes Physical Exam - Summary Physical Exam Summary: VITAL SIGNS: Reviewed. GENERAL: Patient is a well-developed and nourished MALE who is lying comfortable in the stretcher. Patient is not in any acute respiratory distress. HEAD AND FACE: No signs of trauma. No ecchymosis, hematomas or skull depressions. No sinus tenderness. EYES: PERRLA, EOMI x 2, No injected conjunctiva, no nystagmus. EARS: Hearing grossly intact. Ear canals and tympanic membranes are within normal limits. MOUTH: Oropharynx within normal limits. NECK: Supple, trachea is midline, no adenopathy, no JVD, no carotid bruit, no c- spine tenderness, neck with full ROM. CHEST: Symmetric, no tenderness at palpation LUNGS: Clear to auscultation bilaterally. No wheezing or crackles. CVS: Regular rate and rhythm, S1 and S2 present, no murmurs or gallops appreciated. ABDOMEN: Soft, non-tender. No signs of distention. No rebound no guarding, and no masses palpated. Bowel sounds are normal. EXTREMITIES: FROM in all major joints, no edema, no cyanosis or clubbing. NEURO: Alert and oriented x 3. No acute neurological deficits. Speech is normal and follows commands. SKIN: Dry and warm. PSYCH: Depressed, quiet, and denies any suicidal thoughts or plan. No homicidal thoughts or plan. No signs of psychosis or pressure speech. No tangential speech. Triage Information Reviewed: Yes Vital Signs On Initial Exam: Initial Vitals Temp Pulse Resp BP Pulse Ox 98.2 F 96 20 124/80 100 03/30/17 14:37 03/30/17 14:37 03/30/17 14:37 03/30/17 14:37 03/30/17 14:37 Vital Signs Reviewed: Yes Diagnostics - Vital Signs Vital Signs Temp Pulse Resp BP Pulse Ox 03/30/17 14:37 98.2 F 96 20 124/80 100 - Laboratory Lab Statement: Any lab studies that have been ordered have been reviewed, and results considered in the medical decision making process. Course/Dx - Course Assessment/Plan: 46 year old male presents to ED for an anxiety attack reporting he "just wants this fear to go away". He denies any suicidal ideation or homicidal ideation. He is on Klonapin (2 mg, TID) but reports that he misplaced his bottle of medication - unsure if he lost it or not. PMHx is significant for anxiety, schizophrenia, ADHD, depression, and seizures. Patient with history of anxiety for which he takes Klonopin. He reports that he lost his medications, and he has no medications for his anxiety. Patient denies SI and HI. He denies any depression. I offered patient 1 tablet here and 2 days worth of medications for anxiety, and follow up with psychiatrist. He agrees and understands. He is A&O X3 and hemodynamically stable. I discussed all the findings and test results with the patient. Patient was instructed to return to the emergency room immediately if any of the symptoms return or worsens. Plan of care was discussed with the patient and understands and agrees. All questions were answered at patient satisfaction. There were no further complaints or concerns. Lung exam before discharge: CTA B/L. Good air exchange. No wheezing or crackles heard. CVS: S1 and S2 present. No murmurs appreciated. Patient is alert and oriented x 3. Patient is hemodynamically stable. Patient will be discharged home with follow up PCP in the next 2-3 days - Differential Dx/Clinical Impression Differential Diagnosis/HQI/PQRI: Positive: Acute Psychosis, Anxiety, Depression Provider Diagnosis: Anxiety Discharge - Discharge Plan Condition: Stable Disposition: HOME Prescriptions: clonazePAM TAB(*) [KlonoPIN TAB(*)] 0.5 mg PO TID PRN #6 tab MDD 1.5 mg PRN Reason: Anxiety Patient Education Materials: Anxiety (ED) Referrals: Prasad Shah MD [Primary Care Provider] - Additional Instructions: PLEASE FOLLOW UP WITH YOUR PSYCHIATRIST FOR A REFILL ON YOUR MEDICATION WITHIN 2 -3 DAYS. The documentation as recorded by the Vin multani Auryana accurately reflects the service I personally performed and the decisions made by , Gus Lugo MD.
== END 2017-03-30 17:29 | disposition home or self-care (01) ==
LOC: ED 14:34
DX: F41.9 Anxiety disorder, unspecified (principal); J45.909 Unspecified asthma, uncomplicated; F20.9 Schizophrenia, unspecified; D32.9 Benign neoplasm of meninges, unspecified; Z88.0 Allergy status to penicillin; Z91.013 Allergy to seafood; F12.90 Cannabis use, unspecified, uncomplicated; F17.210 Nicotine dependence, cigarettes, uncomplicated
CPT/HCPCS: 99282; A9270-GY

== ENCOUNTER 2017-04-02 19:48 | Emergency (ER) | payer MEDICARE, MEDICAID ==
[2017-04-02] MEDS ORDERED: SUMAtriptan TAB* 50 MG PO ONE (21:31)
[2017-04-02] MEDS ORDERED: Ondansetron ODT TAB* 4 MG PO ONE (21:31)
[2017-04-02] MEDS ORDERED: clonazePAM TAB(*) 1 MG PO ONE (21:32)
--- NOTE | 2017-04-02 21:34 | ED ---
Psychiatric Complaint - HPI Summary HPI Summary: 46M w/ PMH of migraine and anxiety presents with both. He states he ran out of Kudoala because he lost it. He was given enough for the weekend and did not call primary today to get more. He states he has an appointment with his primary in a week. He states he feels extremely anxious. He states that his anxiety has led to his migraine. He denies any difference than his usually migraine except for fiorcet did not work as usually. He admits to nausea. He denies any neck pain or fever. He denies any SI/HI. - History Of Current Complaint Chief Complaint: EDPrescriptionNeeded Time Seen by Provider: 04/02/17 21:08 - Allergies/Home Medications Allergies/Adverse Reactions: Allergies Allergy/AdvReac Type Severity Reaction Status Date / Time Penicillins [PCN] Allergy Unknown Verified 03/25/17 06:58 Reaction Details Shellfish Allergy Allergy Unknown Verified 03/25/17 06:58 Reaction Details PMH/Surg Hx/FS Hx/Imm Hx Endocrine/Hematology History: Denies: Hx Anticoagulant Therapy, Hx Diabetes, Hx Thyroid Disease Cardiovascular History: Denies: Hx Congestive Heart Failure, Hx Deep Vein Thrombosis, Hx Hypertension , Hx Myocardial Infarction, Hx Pacemaker/ICD Respiratory History: Reports: Hx Asthma - Albuterol inhaler episodically. Denies: Hx Chronic Obstructive Pulmonary Disease (COPD), Hx Lung Cancer, Hx Pneumonia, Hx Pulmonary Embolism GI History: Reports: Other GI Disorders - Hepatitis B Denies: Hx Gall Bladder Disease, Hx Gastrointestinal Bleed, Hx Ulcer, Hx Urosepsis History: Denies: Hx Kidney Stones, Hx Renal Disease Musculoskeletal History: Reports: Hx Fibromyalgia - 2005 ER visit for medication Neurological History: Reports: Hx Migraine Denies: Hx Dementia, Hx Seizures, Hx Transient Ischemic Attacks (TIA) Psychiatric History: Reports: Hx Anxiety, Hx Depression, Hx Community Mental Health Tx - seen at [facility], Hx Schizophrenia Denies: Hx Eating Disorder, Hx Panic Disorder, Hx of Violent Episodes Against Others - Surgical History Surgery Procedure, Year, and Place: Appendectomy, HERNIA REPAIR Hx Anesthesia Reactions: No - Immunization History Date of Tetanus Vaccine: pt states w/in last 10 years Date of Influenza Vaccine: 2013 Infectious Disease History: No Infectious Disease History: Denies: Hx Clostridium Difficile, Hx Hepatitis, Hx Human Immunodeficiency Virus (HIV), Hx of Known/Suspected MRSA, Hx Shingles, Hx Tuberculosis, Hx Known/ Suspected VRE, Hx Known/Suspected VRSA, History Other Infectious Disease, Traveled Outside the [place] in Last 30 Days - Family History Known Family History: Positive: None - reviewed & noncontributory, Hypertension , Other - Cancer in father. Mother has Alzheimers - Social History Alcohol Use: None Alcohol Amount: took a shot of vodka tonight Hx Substance Use: Yes Substance Use Type: Reports: Marijuana, Prescribed Substance Use Comment - Amount & Last Used: now vicodin Hx Tobacco Use: Yes Smoking Status (MU): Heavy Every Day Tobacco Smoker Amount Used/How Often: 1/2 ppd Length of Time of Smoking/Using Tobacco: 25 years Have You Smoked in the Last Year: Yes Review of Systems Negative: Fever Negative: Chest Pain Negative: Shortness Of Breath Positive: Headache Positive: Anxious All Other Systems Reviewed And Are Negative: Yes Physical Exam Triage Information Reviewed: Yes Vital Signs On Initial Exam: Initial Vitals Temp Pulse Resp BP Pulse Ox 97.6 F 70 16 122/85 98 04/02/17 19:53 04/02/17 19:53 04/02/17 19:53 04/02/17 19:53 04/02/17 19:53 Vital Signs Reviewed: Yes Appearance: Positive: Well-Appearing Skin: Positive: Warm, Dry Head/Face: Positive: Normal Head/Face Inspection Eyes: Positive: Normal, Conjunctiva Clear ENT: Positive: Normal ENT inspection, Pharynx normal, TMs normal Respiratory/Lung Sounds: Positive: Clear to Auscultation, Breath Sounds Present Cardiovascular: Positive: Normal, RRR Neurological: Positive: Sensory/Motor Intact, Alert, Oriented to Person Place, Time, CN Intact II-III, Heel to Toe, Finger to Nose Diagnostics - Vital Signs Vital Signs Temp Pulse Resp BP Pulse Ox 04/02/17 19:53 97.6 F 70 16 122/85 98 - Laboratory Lab Statement: Any lab studies that have been ordered have been reviewed, and results considered in the medical decision making process. Course/Dx - Course Course Of Treatment: 46M w/ PMH of migraine and anxiety presents with both. He states he ran out of Kudoala because he lost it. He was given enough for the weekend and did not call primary today to get more. He states he has an appointment with his primary in a week. He states he feels extremely anxious. He states that his anxiety has led to his migraine. He denies any difference than his usually migraine except for fiorcet did not work as usually. discussed with patient that needs to call primary tomorrow to continue klonipin as we can not be ordering klonipin for him when he needs it as his primary is already manging this. discussed options for migraine treatment and since this is his typical migraine decided to treat with imitrex. patient understands and agrees with plan. - Differential Dx/Clinical Impression Differential Diagnosis/HQI/PQRI: Positive: Anxiety, Other - migraine, headache Provider Diagnosis: Anxiety, Migraine Discharge - Discharge Plan Condition: Good Disposition: HOME Referrals: Prasad Shah MD [Primary Care Provider] - Additional Instructions: Give primary a call tomorrow about anxiety medication Return to ED if develop any new or worsening symptoms
[2017-04-02] MEDS ORDERED: clonazePAM TAB(*) 0.5 MG ONE (21:41)
[2017-04-02] MEDS ORDERED: clonazePAM TAB(*) 0.5 MG PO ONE (22:00)
[2017-04-02 22:33] VITALS: BP 120/85
== END 2017-04-02 22:32 | disposition home or self-care (01) ==
LOC: ED 19:48
DX: G43.909 Migraine, unspecified, not intractable, without status migrainosus (principal); F41.9 Anxiety disorder, unspecified; F17.210 Nicotine dependence, cigarettes, uncomplicated
CPT/HCPCS: 99282; A9270-GY

== ENCOUNTER 2017-05-15 22:05 | Emergency (ER) | payer MEDICARE, MEDICAID ==
[2017-05-16 00:27] VITALS: BP 121/76
[2017-05-16] MEDS ORDERED: Magic M W2 Ben/Maal/Nyst/Lido* 240 ML MOUTHWASH (alt formulation) SWISH SPIT ONE (00:32)
--- NOTE | 2017-05-16 01:40 | ED ---
Throat Pain/Nasal Congestion - HPI Summary HPI Summary: Patient presents to the ED with CC of "tongue infection" and requests for pain medications, specifically for 80mg oxycodone. Patient is extremely stuporous on arrival and is tangential in his speak. He has been seen before with CC of pain and requesting pain medication at that time, but none was given and security called d/t patients erratic behavior over the incident. He is unable to fully explain why he comes in today and states he has "an infection" on his tongue, then begins to cry. Physical exam of his tongue reveals dry mucous membranes, no pharyngeal erythema or tonsilar exudates, no white patches over the tongue or abnormalities noted. Patient is a smoker. He states he has diffuse pain from fibromyalgia and needs 80mg or more of oxycodone daily for sleep. He states he has been getting this medication from his PCP, but they have recently ceased the medication. ETOH on board. - History of Current Complaint Chief Complaint: EDGeneral Time Seen by Provider: 05/15/17 23:35 Hx Obtained From: Patient Onset/Duration: Gradual Onset Severity: Moderate Associated Signs And Symptoms: Positive: FB Sensation - Allergies/Home Medications Allergies/Adverse Reactions: Allergies Allergy/AdvReac Type Severity Reaction Status Date / Time Penicillins [PCN] Allergy Unknown Verified 05/15/17 22:17 Reaction Details Shellfish Allergy Allergy Unknown Verified 05/15/17 22:17 Reaction Details PMH/Surg Hx/FS Hx/Imm Hx Previously Healthy: Yes Endocrine/Hematology History: Denies: Hx Anticoagulant Therapy, Hx Diabetes, Hx Thyroid Disease Cardiovascular History: Denies: Hx Congestive Heart Failure, Hx Deep Vein Thrombosis, Hx Hypertension , Hx Myocardial Infarction, Hx Pacemaker/ICD Respiratory History: Reports: Hx Asthma - Albuterol inhaler episodically. Denies: Hx Chronic Obstructive Pulmonary Disease (COPD), Hx Lung Cancer, Hx Pneumonia, Hx Pulmonary Embolism GI History: Reports: Other GI Disorders - Hepatitis B Denies: Hx Gall Bladder Disease, Hx Gastrointestinal Bleed, Hx Ulcer, Hx Urosepsis History: Denies: Hx Kidney Stones, Hx Renal Disease Musculoskeletal History: Reports: Hx Fibromyalgia - 2005 ER visit for medication Neurological History: Reports: Hx Migraine Denies: Hx Dementia, Hx Seizures, Hx Transient Ischemic Attacks (TIA) Psychiatric History: Reports: Hx Anxiety, Hx Depression, Hx Community Mental Health Tx - seen at [facility], Hx Schizophrenia Denies: Hx Eating Disorder, Hx Panic Disorder, Hx of Violent Episodes Against Others - Surgical History Surgery Procedure, Year, and Place: Appendectomy, HERNIA REPAIR Hx Anesthesia Reactions: No - Immunization History Date of Tetanus Vaccine: pt states w/in last 10 years Date of Influenza Vaccine: 2013 Hx Pertussis Vaccination: No Immunizations Up to Date: Unable to Obtain/Confirm Infectious Disease History: No Infectious Disease History: Denies: Hx Clostridium Difficile, Hx Hepatitis, Hx Human Immunodeficiency Virus (HIV), Hx of Known/Suspected MRSA, Hx Shingles, Hx Tuberculosis, Hx Known/ Suspected VRE, Hx Known/Suspected VRSA, History Other Infectious Disease, Traveled Outside the [place] in Last 30 Days - Family History Known Family History: Positive: None - reviewed & noncontributory, Hypertension , Other - Cancer in father. Mother has Alzheimers - Social History Occupation: Unemployed Lives: Alone - homeless Alcohol Use: Occasionally Alcohol Amount: took a shot of vodka tonight Hx Substance Use: Yes Substance Use Type: Reports: Marijuana, Prescribed Substance Use Comment - Amount & Last Used: now vicodin Hx Tobacco Use: Yes Smoking Status (MU): Heavy Every Day Tobacco Smoker Amount Used/How Often: 1/2 ppd Length of Time of Smoking/Using Tobacco: 25 years Have You Smoked in the Last Year: Yes Review of Systems Constitutional: Negative Negative: Fever, Chills, Fatigue Negative: Photophobia, Blurred Vision Positive: Other - tongue feels like its infected; no white patches noted; no deformities. Negative: Dental Pain, Sore Throat Cardiovascular: Negative Respiratory: Negative Positive: Arthralgia, Myalgia - at baseline Skin: Negative Negative: Bruising Neurological: Negative All Other Systems Reviewed And Are Negative: Yes Physical Exam Triage Information Reviewed: Yes Vital Signs On Initial Exam: Initial Vitals Temp Pulse Resp BP Pulse Ox 98 F 77 16 125/82 97 05/15/17 22:19 05/15/17 22:19 05/15/17 22:19 05/15/17 22:19 05/15/17 22:19 Completion Of Physical Exam Limited Due To: Altered Mental Status Appearance: Positive: No Pain Distress, Cachectic Skin: Positive: Warm, Dry Head/Face: Positive: Normal Head/Face Inspection Eyes: Positive: EOMI, NAIN, Conjunctiva Clear ENT: Positive: Pharynx normal, Pharyngeal erythema, TMs normal. Negative: Tonsillar swelling, Tonsillar exudate, Muffled/hoarse voice Respiratory/Lung Sounds: Positive: Clear to Auscultation, Breath Sounds Present Cardiovascular: Positive: RRR, Pulses are Symmetrical in both Upper and Lower Extremities Musculoskeletal: Positive: Strength/ROM Intact Neurological: Positive: Slurred Speech Psychiatric: Positive: Patient Uncooperative for Exam AVPU Assessment: Verbal (Reponds To) - [place] Coma Scale Best Eye Response: 3 - To Speech Best Motor Response: 6 - Obeys Commands Best Verbal Response: 5 - Oriented Coma Scale Total: 15 Diagnostics - Vital Signs Vital Signs Temp Pulse Resp BP Pulse Ox 05/16/17 01:04 98.5 F 05/16/17 00:01 75 121/76 95 05/16/17 00:00 75 97 05/15/17 23:48 75 94 05/15/17 23:45 77 97 05/15/17 23:44 131/72 05/15/17 22:19 98 F 77 16 125/82 97 - Laboratory Lab Statement: Any lab studies that have been ordered have been reviewed, and results considered in the medical decision making process. EENT Course/Dx - Course Course Of Treatment: Patient presents to the ED with CC of "tongue infection" and requests for pain medications, specifically for 80mg oxycodone. Patient is extremely stuporous on arrival and is tangential in his speak. He has been seen before with CC of pain and requesting pain medication at that time, but none was given and security called d/t patients erratic behavior over the incident. He is unable to fully explain why he comes in today and states he has "an infection" on his tongue, then begins to cry. Physical exam of his tongue reveals dry mucous membranes, no pharyngeal erythema or tonsilar exudates, no white patches over the tongue or abnormalities noted. Patient is a smoker. He states he has diffuse pain from fibromyalgia and needs 80mg or more of oxycodone daily for sleep. He states he has been getting this medication from his PCP, but they have recently ceased the medication. ETOH on board. Patient is given magic mouth wash d/t his tongue pain. He is discharged home and encouraged follow up to ENT. He is again denied pain medication and is upset about this on discharge, but security did not need to be called, and patient left willingly. - Differential Diagnoses Differential Diagnoses: Hank's Angina, Odontogenic Pain, Pain of Unknown Etiology, Periodontic Disease - Diagnoses Provider Diagnoses: Request for narcotic pain medication, Tongue pain Discharge - Discharge Plan Condition: Stable Disposition: HOME Referrals: Prasad Shah MD [Primary Care Provider] - Braden Turk MD [Medical Doctor] - Additional Instructions: Follow up with your PCP
== END 2017-05-16 01:07 | disposition home or self-care (01) ==
LOC: ED 22:05
DX: K14.6 Glossodynia (principal); F17.210 Nicotine dependence, cigarettes, uncomplicated; J45.909 Unspecified asthma, uncomplicated; F41.8 Other specified anxiety disorders; Z88.0 Allergy status to penicillin
CPT/HCPCS: 99282; A9270-GY

== ENCOUNTER 2017-05-27 00:23 | Emergency (ER) | payer MEDICARE, MEDICAID ==
[2017-05-27] MEDS ORDERED: clonazePAM TAB(*) 1 MG PO ONE (02:24)
[2017-05-27] MEDS ORDERED: HYDROcodone/ACETAMIN 5-325 MG* 1 TAB PO ONE (02:25)
[2017-05-27] MEDS ORDERED: Clindamycin CAP* 150 MG PO ONE (02:25)
[2017-05-27] MEDS ORDERED: clonazePAM TAB(*) 0.5 MG PO ONE (04:00)
[2017-05-27 05:43] VITALS: BP 126/68
--- NOTE | 2017-05-27 05:53 | ED ---
Eder Guajardo Rebecca, scribed for Dex Muñoz MD on 05/27/17 at 0221 . Complex/Multi-Sys Presentation - HPI Summary HPI Summary: Pt is a 46 y/o M who presents to ED c/o tongue sores and swelling with dental pain. Pt reports that his symptoms have been present for a while, but have worsened in the last 3 days. States that the sores have been recurrent. Additionally c/o anxiety and slight SOB. Was seen 1 month ago for simliar sx, during which he stayed and was admitted with Abx which improved sx. Recent Dx of fibromyalgia. FHx CA. - History Of Current Complaint Chief Complaint: EDGeneral Time Seen by Provider: 05/27/17 01:50 Hx Obtained From: Patient Onset/Duration: Still Present, Worse Since - 3 days ago Severity Currently: Mild Location: Negative Aggravating Factor(s): Nothing Alleviating Factor(s): Nothing Associated Signs And Symptoms: Positive: Other - Tongue sores - Allergies/Home Medications Allergies/Adverse Reactions: Allergies Allergy/AdvReac Type Severity Reaction Status Date / Time Penicillins [PCN] Allergy Unknown Verified 05/27/17 00:33 Reaction Details Shellfish Allergy Allergy Unknown Verified 05/27/17 00:33 Reaction Details PMH/Surg Hx/FS Hx/Imm Hx Endocrine/Hematology History: Denies: Hx Anticoagulant Therapy, Hx Diabetes, Hx Thyroid Disease Cardiovascular History: Denies: Hx Congestive Heart Failure, Hx Deep Vein Thrombosis, Hx Hypertension , Hx Myocardial Infarction, Hx Pacemaker/ICD Respiratory History: Reports: Hx Asthma - Albuterol inhaler episodically. Denies: Hx Chronic Obstructive Pulmonary Disease (COPD), Hx Lung Cancer, Hx Pneumonia, Hx Pulmonary Embolism GI History: Reports: Other GI Disorders - Hepatitis B Denies: Hx Gall Bladder Disease, Hx Gastrointestinal Bleed, Hx Ulcer, Hx Urosepsis History: Denies: Hx Kidney Stones, Hx Renal Disease Musculoskeletal History: Reports: Hx Fibromyalgia - 2005 ER visit for medication Neurological History: Reports: Hx Migraine Denies: Hx Dementia, Hx Seizures, Hx Transient Ischemic Attacks (TIA) Psychiatric History: Reports: Hx Anxiety, Hx Depression, Hx Community Mental Health Tx - seen at [facility], Hx Schizophrenia Denies: Hx Eating Disorder, Hx Panic Disorder, Hx of Violent Episodes Against Others - Surgical History Surgery Procedure, Year, and Place: Appendectomy, HERNIA REPAIR Hx Anesthesia Reactions: No - Immunization History Date of Tetanus Vaccine: pt states w/in last 10 years Date of Influenza Vaccine: 2013 Infectious Disease History: No Infectious Disease History: Denies: Hx Clostridium Difficile, Hx Hepatitis, Hx Human Immunodeficiency Virus (HIV), Hx of Known/Suspected MRSA, Hx Shingles, Hx Tuberculosis, Hx Known/ Suspected VRE, Hx Known/Suspected VRSA, History Other Infectious Disease, Traveled Outside the [place] in Last 30 Days - Family History Known Family History: Positive: Hypertension, Other - Cancer in father. Mother has Alzheimers - Social History Alcohol Use: Occasionally Hx Substance Use: Yes Substance Use Type: Reports: Marijuana, Prescribed Substance Use Comment - Amount & Last Used: now vicodin Hx Tobacco Use: Yes Smoking Status (MU): Heavy Every Day Tobacco Smoker Amount Used/How Often: 1/2 ppd Length of Time of Smoking/Using Tobacco: 25 years Have You Smoked in the Last Year: Yes Review of Systems Positive: Dental Pain, Other - Tongue swelling and sores Positive: Shortness Of Breath - slight Positive: Anxious All Other Systems Reviewed And Are Negative: Yes Physical Exam - Summary Physical Exam Summary: The patient is well-nourished in no acute distress and in no acute pain. The skin is warm and dry and skin color reflects adequate perfusion. HEENT: The head is normocephalic and atraumatic. Nares are patent and without drainage. Mouth reveals moist mucous membranes. On the right side of the anterior aspect of the tongue there is a well circumscribes that is white and appears to be ulcer-like. He has got a beefy red posterior pharynx with teeth in poor repair. Bilateral anterior chain adenopathy and posterior chain adenopathy. The external ears are intact. The ear canals are patent and without drainage. The tympanic membranes are intact. Neck is supple with full range of motion and non-tender. There are no carotid bruits. There is no neck vein distension. Respiratory: Chest is non-tender. Lungs are clear to auscultation and breath sounds are symmetrical and equal. Cardiovascular: Hear is regular rate and rhythm. There is no murmur or rub auscultated. There is no peripheral edema and pulses are symmetrical and equal. Abdomen: The abdomen is soft and non-tender. There are normal bowel sounds heard in all four quadrants and there is no organomegaly palpated. Musculoskeletal: There is no back pain noted. Extremities are non-tender with full range of motion. There is good capillary refill. There is no peripheral edema or calf tenderness elicited. Neurological: Patient is alert and oriented to person, place and time. The patient has symmetrical motor strength in all four extremities. Psychiatric: The patient has an appropriate affect and does not exhibit any anxiety or depression. Triage Information Reviewed: Yes Vital Signs On Initial Exam: Initial Vitals Temp Pulse Resp BP Pulse Ox 98.4 F 80 16 118/71 96 05/27/17 00:34 05/27/17 00:34 05/27/17 00:34 05/27/17 00:34 05/27/17 00:34 Vital Signs Reviewed: Yes Diagnostics - Vital Signs Vital Signs Temp Pulse Resp BP Pulse Ox 05/27/17 00:34 98.4 F 80 16 118/71 96 - Laboratory Lab Statement: Any lab studies that have been ordered have been reviewed, and results considered in the medical decision making process. Complex Multi-Symp Course/Dx Assessment/Plan: Pt is a 46 y/o M who presents to ED c/o tongue sores and swelling with dental pain. Pt reports that his symptoms have been present for a while, but have worsened in the last 3 days. States that the sores have been recurrent. Additionally c/o anxiety and slight SOB. Was seen 1 month ago for simliar sx, during which he stayed and was admitted with Abx which improved sx. Recent Dx of fibromyalgia. FHx CA. Pt will be D/C to home with Dx of oral infection and anxiety with Rx for Clindamycin, Klonopin and Percocet 5/325. He understands and agrees. - Diagnoses Provider Diagnoses: Anxiety, Oral infection Discharge - Discharge Plan Condition: Stable Disposition: HOME Prescriptions: Clindamycin Cap(NF) [Clindamycin Cap 300 mg Cap(NF)] 300 mg PO TID #21 cap clonazePAM TAB(*) [Klonopin TAB(*)] 0.5 mg PO TID PRN #6 tab MDD 1.5 mg PRN Reason: Anxiety oxyCODONE/Acetamin 5/325 MG* [Percocet 5/325 TAB*] 1 tab PO Q6H PRN #10 tab MDD 4 PRN Reason: Pain Patient Education Materials: Anxiety (ED) Referrals: Prasad Shah MD [Primary Care Provider] - 3 Days The documentation as recorded by the Eder multani Rebecca accurately reflects the service I personally performed and the decisions made by me, Dex Muñoz MD.
== END 2017-05-27 05:42 | disposition home or self-care (01) ==
LOC: ED 00:23
DX: B99.8 Other infectious disease (principal); F41.9 Anxiety disorder, unspecified; M79.7 Fibromyalgia; Z88.0 Allergy status to penicillin; J45.909 Unspecified asthma, uncomplicated; F17.210 Nicotine dependence, cigarettes, uncomplicated
CPT/HCPCS: 99285; A9270-GY

== ENCOUNTER 2017-06-16 18:15 | Emergency (ER) | payer MEDICARE, MEDICAID ==
[2017-06-16] MEDS ORDERED: NS 0.9% 1000 ML* 1,000 ML IV ONE (19:10)
--- NOTE | 2017-06-16 19:35 | RAD ---
INDICATION: Weakness. Dizziness. COMPARISON: March 22, 2017 TECHNIQUE: An AP portable view obtained at 1925 hours is submitted. FINDINGS: Bones/Soft Tissues: There are no acute bony findings. Cardiomediastinal: The cardiomediastinal silhouette is normal. Lungs: There are no infiltrates. Pleura: There are no pleural effusions. Other: None IMPRESSION: NO ACTIVE DISEASE.
[2017-06-16 19:50] LABS: Hematocrit 39 % (42-52); Hemoglobin 13.3 g/dl (14.0-18.0); Mean Corpuscular HGB Conc 34 g/dl (31-36); Mean Corpuscular Hemoglobin 32 pg (27-31); Mean Corpuscular Volume 94 fL (80-94); Mean Platelet Volume 9 um3 (7.4-10.4); Red Blood Count 4.16 10^6/ul (4.0-5.4); Red Cell Distribution Width 14 % (10.5-15); White Blood Count 10.9 10^3/ul (3.5-10.8)
[2017-06-16 20:04] LABS: ALT 16 U/L (7-52); AST 16 U/L (13-39); Alkaline Phosphatase 66 U/L (34-104); Anion Gap 5 mmol/L (2-11); BUN/Creatinine Ratio 9.8 (8-20); Blood Urea Nitrogen 9 mg/dL (6-24); C Reactive Protein 15.96 mg/L (< 5.00); CO2 Carbon Dioxide 29 mmol/L (22-32); Calcium 9.3 mg/dL (8.6-10.3); Chloride 106 mmol/L (101-111); Creatine Kinase 108 U/L (10-223); EGFR African American 114.4 (>60); Globulin 2.3 g/dL (2-4); Glucose 85 mg/dL (70-100); Magnesium 2.1 mg/dL (1.9-2.7); Sodium 140 mmol/L (133-145); Total Protein 6.3 g/dL (6.4-8.9)
[2017-06-16 20:05] LABS: Troponin I 0.01 ng/mL (<0.04)
[2017-06-16 20:13] LABS: Alcohol < 10 mg/dL (<10)
[2017-06-16] MEDS ORDERED: HYDROcodone/ACETAMIN 5-325 MG* 1 TAB PO ONE (20:36)
[2017-06-16] MEDS ORDERED: Sulfamethox/Trimethoprim DS 800/160* TAB PO ONE (20:37)
[2017-06-16 21:50] VITALS: BP 110/82
[2017-06-16] MEDS ORDERED: Albuterol HFA INHALER* 8 gm MDI INH ONE (22:16)
--- NOTE | 2017-06-17 10:43 | ED ---
Honorio Guajardo Thomas, scribed for Gaviota Servin MD on 06/16/17 at 2030 . Throat Pain/Nasal Congestion - HPI Summary HPI Summary: The pt is a 46 y/o M presenting to the ED c/o dental pain that has been present for months. The pain is aggravated and alleviated by nothing. He has been on Clindamycin, Erythromycin, Keflex, and Augmentin. He recently finished his course of clindamycin. He has been taking Vicodin and Percocet for the pain. His pain level is 10/10. He complains of one episode of hematemesis today at 12: 30. Pt additionally c/o myalgia, chronic diarrhea (on and off for years although none in the ED), sinus congestion, and URI symptoms. Pt denies CP and bloody stools. PMHx of schizophrenia, depression, anxiety, seizures, and fibromyalgia. He lives in [place]. He took a Medicaid cab here. - History of Current Complaint Chief Complaint: EDGeneral Time Seen by Provider: 06/16/17 19:09 Hx Obtained From: Patient Onset/Duration: Gradual Onset, Lasting Weeks - dental pain has been present for months, Still Present Severity: Severe Associated Signs And Symptoms: Positive: Sinus Discomfort Cough: None Related History: Other (Noted In Comments) - He has been on various antibiotics for some time. - Allergies/Home Medications Allergies/Adverse Reactions: Allergies Allergy/AdvReac Type Severity Reaction Status Date / Time Penicillins [PCN] Allergy Unknown Verified 06/22/17 03:44 Reaction Details Shellfish Allergy Allergy Unknown Verified 06/22/17 03:44 Reaction Details PMH/Surg Hx/FS Hx/Imm Hx Previously Healthy: No Endocrine/Hematology History: Denies: Hx Anticoagulant Therapy, Hx Diabetes, Hx Thyroid Disease Cardiovascular History: Denies: Hx Congestive Heart Failure, Hx Deep Vein Thrombosis, Hx Hypertension , Hx Myocardial Infarction, Hx Pacemaker/ICD Respiratory History: Reports: Hx Asthma - Albuterol inhaler episodically. Denies: Hx Chronic Obstructive Pulmonary Disease (COPD), Hx Lung Cancer, Hx Pneumonia, Hx Pulmonary Embolism GI History: Reports: Other GI Disorders - Hepatitis B Denies: Hx Gall Bladder Disease, Hx Gastrointestinal Bleed, Hx Ulcer, Hx Urosepsis History: Denies: Hx Kidney Stones, Hx Renal Disease Musculoskeletal History: Reports: Hx Fibromyalgia - 2005 ER visit for medication Neurological History: Reports: Hx Migraine Denies: Hx Dementia, Hx Seizures, Hx Transient Ischemic Attacks (TIA) Psychiatric History: Reports: Hx Anxiety, Hx Depression, Hx Community Mental Health Tx - seen at [facility], Hx Schizophrenia Denies: Hx Eating Disorder, Hx Panic Disorder, Hx of Violent Episodes Against Others - Surgical History Surgery Procedure, Year, and Place: Appendectomy, HERNIA REPAIR Hx Anesthesia Reactions: No - Immunization History Date of Tetanus Vaccine: pt states w/in last 10 years Date of Influenza Vaccine: 2013 Infectious Disease History: Yes Infectious Disease History: Denies: Hx Clostridium Difficile, Hx Hepatitis, Hx Human Immunodeficiency Virus (HIV), Hx of Known/Suspected MRSA, Hx Shingles, Hx Tuberculosis, Hx Known/ Suspected VRE, Hx Known/Suspected VRSA, History Other Infectious Disease, Traveled Outside the [place] in Last 30 Days - Family History Known Family History: Positive: Hypertension, Other - Cancer in father. Mother has Alzheimer's - Social History Alcohol Use: Occasionally Alcohol Amount: took a shot of vodka tonight Hx Substance Use: Yes Substance Use Type: Reports: Marijuana, Prescribed Substance Use Comment - Amount & Last Used: now vicodin and percocet Hx Tobacco Use: Yes Smoking Status (MU): Heavy Every Day Tobacco Smoker Amount Used/How Often: 1/2 ppd Length of Time of Smoking/Using Tobacco: 25 years Have You Smoked in the Last Year: Yes Review of Systems Positive: Dental Pain - for months , Other - Sinus congestion, URI symptoms Negative: Chest Pain Positive: Other - URI symptoms Positive: Diarrhea - on and off for years, Nausea. Negative: Other - NEGATIVE: bloody stools POS: vomited blood x 1 today Positive: Myalgia Skin: Negative Neurological: Negative Positive: Anxious All Other Systems Reviewed And Are Negative: Yes Physical Exam Triage Information Reviewed: Yes Vital Signs On Initial Exam: Initial Vitals Temp Pulse Resp BP Pulse Ox 99.7 F 78 19 103/86 96 06/16/17 18:16 06/16/17 18:16 06/16/17 18:16 06/16/17 18:16 06/16/17 18:16 Vital Signs Reviewed: Yes Appearance: Positive: Well-Appearing, Well-Nourished, Pain Distress - "total body" Skin: Positive: Warm, Skin Color Reflects Adequate Perfusion Head/Face: Positive: Normal Head/Face Inspection Eyes: Positive: Conjunctiva Clear ENT: Positive: Normal ENT inspection Dental: Positive: Other - Poor dentition Neck: Positive: Supple Respiratory/Lung Sounds: Positive: Clear to Auscultation, Breath Sounds Present , Other - No respiratory distress Cardiovascular: Positive: RRR, Pulses are Symmetrical in both Upper and Lower Extremities, Other - Brisk cap refill. Negative: Murmur Abdomen Description: Positive: Nontender, Soft, Other: - On rectal examination, the patient is in the lateral decubitus position. There is soft brown stool. Prostate is normal. No BRBPR Bowel Sounds: Positive: Present Male Genital Exam: Positive: normal genitalia, normal prostate. Negative: high riding prostate Musculoskeletal: Positive: Strength/ROM Intact Neurological: Positive: Sensory/Motor Intact, Alert, Oriented to Person Place, Time, Facial Symmetry, Speech Normal Psychiatric: Positive: Affect/Mood Appropriate - [place] Coma Scale Coma Scale Total: 15 Diagnostics - Vital Signs Vital Signs Temp Pulse Resp BP Pulse Ox 06/16/17 18:16 99.7 F 78 19 103/86 96 - Laboratory Lab Results: Lab Results 06/16/17 06/16/17 06/16/17 Range/Units 19:35 19:35 19:35 WBC 10.9 H (3.5-10.8) 10^3/ul RBC 4.16 (4.0-5.4) 10^6/ul Hgb 13.3 L (14.0-18.0) g/dl Hct 39 L (42-52) % MCV 94 (80-94) fL MCH 32 H (27-31) pg MCHC 34 (31-36) g/dl RDW 14 (10.5-15) % Plt Count 206 (150-450) 10^3/ul MPV 9 (7.4-10.4) um3 Neut % (Auto) 63.0 (38-83) % Lymph % (Auto) 25.8 (25-47) % Reynolds % (Auto) 9.0 (1-9) % Eos % (Auto) 1.8 (0-6) % Baso % (Auto) 0.4 (0-2) % Absolute Neuts (auto) 6.9 (1.5-7.7) 10^3/ul Absolute Lymphs (auto) 2.8 (1.0-4.8) 10^3/ul Absolute Monos (auto) 1.0 H (0-0.8) 10^3/ul Absolute Eos (auto) 0.2 (0-0.6) 10^3/ul Absolute Basos (auto) 0 (0-0.2) 10^3/ul Absolute Nucleated RBC 0 10^3/ul Nucleated RBC % 0 INR (Anticoag Therapy) (0.89-1.11) Sodium 140 (133-145) mmol/L Potassium 4.0 (3.5-5.0) mmol/L Chloride 106 (101-111) mmol/L Carbon Dioxide 29 (22-32) mmol/L Anion Gap 5 (2-11) mmol/L BUN 9 (6-24) mg/dL Creatinine 0.92 (0.67-1.17) mg/dL Est GFR ( Amer) 114.4 (>60) Est GFR (Non-Af Amer) 89.0 (>60) BUN/Creatinine Ratio 9.8 (8-20) Glucose 85 (70-100) mg/dL Lactic Acid 0.9 (0.5-2.0) mmol/L Calcium 9.3 (8.6-10.3) mg/dL Magnesium 2.1 (1.9-2.7) mg/dL Total Bilirubin 0.20 (0.2-1.0) mg/dL AST 16 (13-39) U/L ALT 16 (7-52) U/L Alkaline Phosphatase 66 (34-104) U/L Total Creatine Kinase 108 (10-223) U/L Troponin I 0.01 (<0.04) ng/mL C-Reactive Protein 15.96 H (< 5.00) mg/L Total Protein 6.3 L (6.4-8.9) g/dL Albumin 4.0 (3.2-5.2) g/dL Globulin 2.3 (2-4) g/dL Albumin/Globulin Ratio 1.7 (1-3) TSH Pending Serum Alcohol < 10 (<10) mg/dL 06/16/17 Range/Units 19:35 WBC (3.5-10.8) 10^3/ul RBC (4.0-5.4) 10^6/ul Hgb (14.0-18.0) g/dl Hct (42-52) % MCV (80-94) fL MCH (27-31) pg MCHC (31-36) g/dl RDW (10.5-15) % Plt Count (150-450) 10^3/ul MPV (7.4-10.4) um3 Neut % (Auto) (38-83) % Lymph % (Auto) (25-47) % Reynolds % (Auto) (1-9) % Eos % (Auto) (0-6) % Baso % (Auto) (0-2) % Absolute Neuts (auto) (1.5-7.7) 10^3/ul Absolute Lymphs (auto) (1.0-4.8) 10^3/ul Absolute Monos (auto) (0-0.8) 10^3/ul Absolute Eos (auto) (0-0.6) 10^3/ul Absolute Basos (auto) (0-0.2) 10^3/ul Absolute Nucleated RBC 10^3/ul Nucleated RBC % INR (Anticoag Therapy) 0.79 L (0.89-1.11) Sodium (133-145) mmol/L Potassium (3.5-5.0) mmol/L Chloride (101-111) mmol/L Carbon Dioxide (22-32) mmol/L Anion Gap (2-11) mmol/L BUN (6-24) mg/dL Creatinine (0.67-1.17) mg/dL Est GFR ( Amer) (>60) Est GFR (Non-Af Amer) (>60) BUN/Creatinine Ratio (8-20) Glucose (70-100) mg/dL Lactic Acid (0.5-2.0) mmol/L Calcium (8.6-10.3) mg/dL Magnesium (1.9-2.7) mg/dL Total Bilirubin (0.2-1.0) mg/dL AST (13-39) U/L ALT (7-52) U/L Alkaline Phosphatase (34-104) U/L Total Creatine Kinase (10-223) U/L Troponin I (<0.04) ng/mL C-Reactive Protein (< 5.00) mg/L Total Protein (6.4-8.9) g/dL Albumin (3.2-5.2) g/dL Globulin (2-4) g/dL Albumin/Globulin Ratio (1-3) TSH Serum Alcohol (<10) mg/dL Result Diagrams: 06/16/17 19:35 06/16/17 19:35 Lab Statement: Any lab studies that have been ordered have been reviewed, and results considered in the medical decision making process. - Radiology CXR Xray Interpretation: No Acute Changes - No active disease. ED physician has reviewed this report and agrees. Radiology Interpretation Completed By: Radiologist - EKG 20:31 Cardiac Rate: NL - 65 BPM EKG Interpretation: Sinus rhythm. Normal AV/IV/QTc/[place]. Normal EKG. EKG Comparison: Other - Compared to 04/13/15, in lead III there is now a Q wave. Re-Evaluation - Re-Evaluation First Eval Re-Evaluation Time: 21:40 Change: Unchanged Comment: I re-evaluated the patient before discharge and explained the plan of treatment going forward. Second Eval Re-Evaluation Time: 22:08 Change: Unchanged Comment: I re-evaluated the patient in the waiting room while he was awaiting a medicaid cab home. He requests an albuterol inhaler. He states he is not SOB now , just needs one at home for as needed use. EENT Course/Dx - Course Course Of Treatment: Allergies noted. Patients medications reviewed this visit. Assessment/Plan: The pt is a 46 y/o M presenting to the ED c/o dental pain that has been present for months. He complains of one episode of hematemesis today. Patients medication reviewed this visit. In the ED course the patient was given IV fluids, [place], Albuterol, and Bactrim. Bloodwork shows WBC 10.9, Hgb 13.3, Hct 39, CRP 15.96, troponin 0.01. Stool occult was negative for blood. CXR shows no acute changes. ED physician has reviewed this report and agrees. EKG shows sinus rhythm. Pt had no vomiting or diarrhea or blood in vomit or stool, while in the ED. I re-evaluated the patient at 21:40 before discharge and he is safe for discharge. Patient will be discharged home with follow up by PCP. Pt is agreeable with this plan. - Differential Diagnoses Differential Diagnoses: Periodontic Abscess, Periodontic Disease, Sinusitis, Other - dental infection, gastritis, PUD, bronchitis - Diagnoses Provider Diagnoses: Hematemesis with nausea, Chronic dental infection Discharge - Discharge Plan Condition: Stable Disposition: HOME Prescriptions: Albuterol HFA INHALER* [Ventolin HFA Inhaler*] 2 puff INH Q4H PRN #1 mdi PRN Reason: Wheezing Sulfamethox/Trimethoprim DS* [Bactrim DS 800/160 TAB*] 1 tab PO BID #20 tab Patient Education Materials: Dental Abscess (ED), Toothache (ED), Hematemesis ( ED) Referrals: Prasad Shah MD [Primary Care Provider] - 2 Days Additional Instructions: You were given hydrocodone and acetaminophen 10/650mg and Bactrim double strength for your dental infection and pain. Your stool did not show blood and you are not anemic after vomiting blood. You were given IV fluids. You need dental follow up MOHINDER. Return to the ER if you have any new or worsening symptoms. The documentation as recorded by the Honorio multani Thomas accurately reflects the service I personally performed and the decisions made by , Gaviota Servin MD.
== END 2017-06-16 22:28 | disposition home or self-care (01) ==
LOC: ED 18:15
DX: K08.89 Other specified disorders of teeth and supporting structures (principal); J06.9 Acute upper respiratory infection, unspecified; R19.7 Diarrhea, unspecified
CPT/HCPCS: 36415; 71010; 80053; 80320; 82272; 82550; 83605; 83735; 84443; 84484; 85025; 85610; 86140; 93005; 99285; A9270-GY; G0480

== ENCOUNTER → 2017-06-22 03:05 | Emergency (ER) | payer MEDICARE, MEDICAID ==
[2017-06-22 06:11] LABS: Hematocrit 37 % (42-52); Hemoglobin 12.6 g/dl (14.0-18.0); Mean Corpuscular HGB Conc 34 g/dl (31-36); Mean Corpuscular Hemoglobin 32 pg (27-31); Mean Corpuscular Volume 94 fL (80-94); Mean Platelet Volume 8 um3 (7.4-10.4); Red Blood Count 3.93 10^6/ul (4.0-5.4); Red Cell Distribution Width 14 % (10.5-15); White Blood Count 14.5 10^3/ul (3.5-10.8)
[2017-06-22 06:26] LABS: Albumin 3.8 g/dL (3.2-5.2); BUN/Creatinine Ratio 12.1 (8-20); C Reactive Protein 81.21 mg/L (< 5.00); Calcium 8.7 mg/dL (8.6-10.3); EGFR African American 105.1 (>60); EGFR Non-African American 81.7 (>60); Globulin 2.5 g/dL (2-4); Potassium 3.7 mmol/L (3.5-5.0); Total Bilirubin 0.2 mg/dL (0.2-1.0); Total Protein 6.3 g/dL (6.4-8.9)
[2017-06-22 06:30] LABS: Troponin I 0.01 ng/mL (<0.04)
--- NOTE | 2017-06-22 07:48 | RAD ---
HISTORY: Shortness of breath COMPARISONS: June 16, 2017 VIEWS: 4: Frontal dual-energy and lateral views of the chest. FINDINGS: CARDIOMEDIASTINAL SILHOUETTE: The cardiomediastinal silhouette is normal. JANET: The janet are normal. PLEURA: The costophrenic angles are sharp. No pleural abnormalities are noted. LUNG PARENCHYMA: There is faint alveolar opacification of the right upper lung best seen on the subtracted images. ABDOMEN: The upper abdomen is clear. There is no subphrenic gas. BONES AND SOFT TISSUES: No bone or soft tissue abnormalities are noted. OTHER: None. IMPRESSION: FAINT AIRSPACE DISEASE OF THE RIGHT UPPER LUNG. THE DIFFERENTIAL INCLUDES ATELECTASIS VERSUS EARLY CONSOLIDATION.
[2017-06-22 08:33] VITALS: BP 121/81
--- NOTE | 2017-06-22 10:28 | ED ---
Eder Guajardo Rebecca, scribed for Gaviota Servin MD on 06/22/17 at 0658 . Respiratory - HPI Summary HPI Summary: Pt is a 46 y/o M who presents to ED c/o myalgias, N/V and SOB. Additionally c/o nonproductive cough and midsternal CP. Myalgias are currently severe, ranked 9/ 10. Sx aggravated and alleviated by nothing. Denies dental pain. Pt reports that he presented to the ED today due to "fear and pain." Initially, the pt was asleep and while sleeping his O2 saturation was 93% on RA, pulse 71 bpm and BP 118/67. Pt was evaluated on 06/16/2017 in the ED where he was D/C to home with Dx of dental infection and Rx for Bactrim DS. PMHx fibromyalgia. - History of Current Complaint Chief Complaint: EDUpperRespComplaint Stated Complaint: SOB/ALL OVER BODY PAIN//ANXIETY Time Seen by Provider: 06/22/17 04:31 Hx Obtained From: Patient Onset/Duration: Still Present Current Severity: Severe Pain Intensity: 9 - Myalgias Character: Cough (Nonproductive) Sputum Amount: None Aggravating Factor(s): Nothing Alleviating Factor(s): Nothing Associated Signs and Symptoms: SOB - Allergy/Home Medications Allergies/Adverse Reactions: Allergies Allergy/AdvReac Type Severity Reaction Status Date / Time Penicillins [PCN] Allergy Unknown Verified 06/22/17 03:44 Reaction Details Shellfish Allergy Allergy Unknown Verified 06/22/17 03:44 Reaction Details PMH/Surg Hx/FS Hx/Imm Hx Endocrine/Hematology History: Denies: Hx Anticoagulant Therapy, Hx Diabetes, Hx Thyroid Disease Cardiovascular History: Denies: Hx Congestive Heart Failure, Hx Deep Vein Thrombosis, Hx Hypertension , Hx Myocardial Infarction, Hx Pacemaker/ICD Respiratory History: Reports: Hx Asthma - Albuterol inhaler episodically. Denies: Hx Chronic Obstructive Pulmonary Disease (COPD), Hx Lung Cancer, Hx Pneumonia, Hx Pulmonary Embolism GI History: Reports: Other GI Disorders - Hepatitis B Denies: Hx Gall Bladder Disease, Hx Gastrointestinal Bleed, Hx Ulcer, Hx Urosepsis History: Denies: Hx Kidney Stones, Hx Renal Disease Musculoskeletal History: Reports: Hx Fibromyalgia - 2005 ER visit for medication Neurological History: Reports: Hx Migraine Denies: Hx Dementia, Hx Seizures, Hx Transient Ischemic Attacks (TIA) Psychiatric History: Reports: Hx Anxiety, Hx Depression, Hx Community Mental Health Tx - seen at [facility], Hx Schizophrenia Denies: Hx Eating Disorder, Hx Panic Disorder, Hx of Violent Episodes Against Others - Surgical History Surgery Procedure, Year, and Place: Appendectomy, HERNIA REPAIR Hx Anesthesia Reactions: No - Immunization History Date of Tetanus Vaccine: pt states w/in last 10 years Date of Influenza Vaccine: 2013 Infectious Disease History: No Infectious Disease History: Denies: Hx Clostridium Difficile, Hx Hepatitis, Hx Human Immunodeficiency Virus (HIV), Hx of Known/Suspected MRSA, Hx Shingles, Hx Tuberculosis, Hx Known/ Suspected VRE, Hx Known/Suspected VRSA, History Other Infectious Disease, Traveled Outside the [place] in Last 30 Days - Family History Known Family History: Positive: Hypertension, Other - Cancer in father. Mother has Alzheimers - Social History Alcohol Use: None Alcohol Amount: took a shot of vodka tonight Hx Substance Use: Yes Substance Use Type: Reports: Marijuana, Prescribed Substance Use Comment - Amount & Last Used: Vicodin Hx Tobacco Use: Yes Smoking Status (MU): Heavy Every Day Tobacco Smoker Amount Used/How Often: 1/2 ppd Length of Time of Smoking/Using Tobacco: 25 years Have You Smoked in the Last Year: Yes Review of Systems Negative: Dental Pain Positive: Chest Pain - midsternal Positive: Shortness Of Breath, Cough - nonproductive Positive: Vomiting, Nausea Positive: Myalgia All Other Systems Reviewed And Are Negative: Yes Physical Exam Triage Information Reviewed: Yes Vital Signs On Initial Exam: Initial Vitals Temp Pulse Resp BP Pulse Ox 98.7 F 83 18 154/77 96 06/22/17 03:12 06/22/17 03:12 06/22/17 03:12 06/22/17 03:12 06/22/17 03:12 Vital Signs Reviewed: Yes Appearance: Positive: No Pain Distress, Well-Nourished, Ill-Appearing - Mildly Skin: Positive: Warm, Skin Color Reflects Adequate Perfusion Head/Face: Positive: Normal Head/Face Inspection Eyes: Positive: Conjunctiva Clear ENT: Positive: Normal ENT inspection Neck: Positive: Supple Respiratory/Lung Sounds: Positive: Clear to Auscultation, Breath Sounds Present , Other - No respiratory distress Cardiovascular: Positive: RRR, Pulses are Symmetrical in both Upper and Lower Extremities, Other - Brisk capillary refill. Negative: Murmur Abdomen Description: Positive: Nontender, Soft Bowel Sounds: Positive: Present Musculoskeletal: Positive: Strength/ROM Intact Neurological: Positive: Sensory/Motor Intact, Alert, Oriented to Person Place, Time, Facial Symmetry, Speech Normal Psychiatric: Positive: Other - Sleepy, but rouses easily Diagnostics - Vital Signs Vital Signs Temp Pulse Resp BP Pulse Ox 06/22/17 06:00 74 122/70 92 06/22/17 05:47 75 118/61 93 06/22/17 05:28 72 93 06/22/17 04:00 81 126/66 95 06/22/17 03:39 80 95 06/22/17 03:37 128/63 06/22/17 03:12 98.7 F 83 18 154/77 96 - Laboratory Lab Results: Lab Results 06/22/17 06/22/17 06/22/17 Range/Units 05:46 05:52 05:52 WBC (3.5-10.8) 10^3/ul RBC (4.0-5.4) 10^6/ul Hgb (14.0-18.0) g/dl Hct (42-52) % MCV (80-94) fL MCH (27-31) pg MCHC (31-36) g/dl RDW (10.5-15) % Plt Count (150-450) 10^3/ul MPV (7.4-10.4) um3 Neut % (Auto) (38-83) % Lymph % (Auto) (25-47) % [place] % (Auto) (1-9) % Eos % (Auto) (0-6) % Baso % (Auto) (0-2) % Absolute Neuts (auto) (1.5-7.7) 10^3/ul Absolute Lymphs (auto) (1.0-4.8) 10^3/ul Absolute Monos (auto) (0-0.8) 10^3/ul Absolute Eos (auto) (0-0.6) 10^3/ul Absolute Basos (auto) (0-0.2) 10^3/ul Absolute Nucleated RBC 10^3/ul Nucleated RBC % APTT 30.8 (26.0-36.3) seconds D-Dimer, Quantitative 267 H (Less Than 230) ng/mL Sodium 137 (133-145) mmol/L Potassium 3.7 (3.5-5.0) mmol/L Chloride 103 (101-111) mmol/L Carbon Dioxide 27 (22-32) mmol/L Anion Gap 7 (2-11) mmol/L BUN 12 (6-24) mg/dL Creatinine 0.99 (0.67-1.17) mg/dL Est GFR ( Amer) 105.1 (>60) Est GFR (Non-Af Amer) 81.7 (>60) BUN/Creatinine Ratio 12.1 (8-20) Glucose 109 H (70-100) mg/dL Lactic Acid (0.5-2.0) mmol/L Calcium 8.7 (8.6-10.3) mg/dL Total Bilirubin 0.20 (0.2-1.0) mg/dL AST 22 (13-39) U/L ALT 16 (7-52) U/L Alkaline Phosphatase 87 (34-104) U/L Total Creatine Kinase 161 (10-223) U/L CK-MB (CK-2) 1.9 (0.6-6.3) ng/mL Troponin I 0.01 (<0.04) ng/mL C-Reactive Protein 81.21 H (< 5.00) mg/L Total Protein 6.3 L (6.4-8.9) g/dL Albumin 3.8 (3.2-5.2) g/dL Globulin 2.5 (2-4) g/dL Albumin/Globulin Ratio 1.5 (1-3) Influenza A (Rapid) Negative (Negative) Influenza B (Rapid) Negative (Negative) 06/22/17 06/22/17 Range/Units 05:52 05:52 WBC 14.5 H (3.5-10.8) 10^3/ul RBC 3.93 L (4.0-5.4) 10^6/ul Hgb 12.6 L (14.0-18.0) g/dl Hct 37 L (42-52) % MCV 94 (80-94) fL MCH 32 H (27-31) pg MCHC 34 (31-36) g/dl RDW 14 (10.5-15) % Plt Count 229 (150-450) 10^3/ul MPV 8 (7.4-10.4) um3 Neut % (Auto) 81.0 (38-83) % Lymph % (Auto) 10.8 L (25-47) % [place] % (Auto) 7.2 (1-9) % Eos % (Auto) 0.4 (0-6) % Baso % (Auto) 0.6 (0-2) % Absolute Neuts (auto) 11.7 H (1.5-7.7) 10^3/ul Absolute Lymphs (auto) 1.6 (1.0-4.8) 10^3/ul Absolute Monos (auto) 1.0 H (0-0.8) 10^3/ul Absolute Eos (auto) 0.1 (0-0.6) 10^3/ul Absolute Basos (auto) 0.1 (0-0.2) 10^3/ul Absolute Nucleated RBC 0 10^3/ul Nucleated RBC % 0 APTT (26.0-36.3) seconds D-Dimer, Quantitative (Less Than 230) ng/mL Sodium (133-145) mmol/L Potassium (3.5-5.0) mmol/L Chloride (101-111) mmol/L Carbon Dioxide (22-32) mmol/L Anion Gap (2-11) mmol/L BUN (6-24) mg/dL Creatinine (0.67-1.17) mg/dL Est GFR ( Amer) (>60) Est GFR (Non-Af Amer) (>60) BUN/Creatinine Ratio (8-20) Glucose (70-100) mg/dL Lactic Acid 0.6 (0.5-2.0) mmol/L Calcium (8.6-10.3) mg/dL Total Bilirubin (0.2-1.0) mg/dL AST (13-39) U/L ALT (7-52) U/L Alkaline Phosphatase (34-104) U/L Total Creatine Kinase (10-223) U/L CK-MB (CK-2) (0.6-6.3) ng/mL Troponin I (<0.04) ng/mL C-Reactive Protein (< 5.00) mg/L Total Protein (6.4-8.9) g/dL Albumin (3.2-5.2) g/dL Globulin (2-4) g/dL Albumin/Globulin Ratio (1-3) Influenza A (Rapid) (Negative) Influenza B (Rapid) (Negative) Result Diagrams: 06/22/17 05:52 06/22/17 05:52 Lab Statement: Any lab studies that have been ordered have been reviewed, and results considered in the medical decision making process. - Radiology CXR Xray Interpretation: Positive (See Comments) - FAINT AIRSPACE DISEASE OF THE RIGHT UPPER LUNG. THE DIFFERENTIAL INCLUDES ATELECTASIS VERSUS EARLY CONSOLIDATION. ED physician reviewed radiology report and agrees. Radiology Interpretation Completed By: Radiologist - EKG 0512 Cardiac Rate: NL - 75 bpm EKG Rhythm: Sinus Rhythm EKG Interpretation: Nl AV/IV CT, nl QTC, nl axis, no acute changes Disposition - Course Assessment/Plan: Pt is a 46 y/o M who presents to ED c/o myalgias, N/V and SOB. Additionally c/o nonproductive cough and midsternal CP. Myalgias are currently severe, ranked 9/10. Sx aggravated and alleviated by nothing. Denies dental pain. Pt reports that he presented to the ED today due to "fear and pain." Initially, the pt was asleep and while sleeping his O2 saturation was 93% on RA , pulse 71 bpm and BP 118/67. Pt was evaluated on 06/16/2017 in the ED where he was D/C to home with Dx of dental infection and Rx for Bactrim DS which he has continued to take. PMHx fibromyalgia. CXR reveals atelectasis vs early consolidation in RUL. Pt is afeb, O2 sats are adequate, pt does not have an elevated white count. Will continue the Bactrim. Pt will be D/C to home with Dx of bronchitis. Pt medications reviewed. Allergies noted. Elevated BP noted. - Differential Dx - Cardiopulmonary Differential Diagnoses - Cardiopulmonary: Asthma, Bronchitis, Influenza, Lower Resp Infection, Pulmonary Embolism - Diagnoses Provider Diagnoses: Bronchitis, Elevated BP without diagnosis of hypertension Discharge - Discharge Plan Condition: Stable Disposition: HOME Patient Education Materials: Acute Bronchitis (ED) Referrals: Prasad Shah MD [Primary Care Provider] - 2 Days Additional Instructions: Continue the Bactrim that was prescribed on 06/16/17. Follow up with your doctor. Return to the ER if you have any new or worsening symptoms. The documentation as recorded by the Eder multani Rebecca accurately reflects the service I personally performed and the decisions made by , Gaviota Servin MD.
== END | disposition home or self-care (01) ==
LOC: ED 03:05
DX: R06.02 Shortness of breath (principal); R11.2 Nausea with vomiting, unspecified; F17.210 Nicotine dependence, cigarettes, uncomplicated; R07.9 Chest pain, unspecified; R05 Cough; J40 Bronchitis, not specified as acute or chronic; R03.0 Elevated blood-pressure reading, without diagnosis of hypertension
CPT/HCPCS: 36415; 71020; 80053; 82550; 82553; 83605; 84484; 85025; 85379; 85730; 86140; 87502; 93005; 99282

== ENCOUNTER 2017-06-30 16:44 | Emergency (ER) | payer MEDICARE, MEDICAID ==
[2017-06-30] MEDS ORDERED: clonazePAM TAB(*) 0.5 MG PO ONE (17:46)
[2017-06-30 18:11] VITALS: BP 118/83
--- NOTE | 2017-07-03 13:37 | ED ---
Katie Guajardo Edward, scribed for Gus Lugo MD on 06/30/17 at 1743 . Psychiatric Complaint - HPI Summary HPI Summary: 46 y/o male presents to the ED c/o anxiety that became worse today. Pt reports nothing helps the anxiety other than Klonopin. Per triage note, the pt states that he has been treating his anxiety with breathing treatments. Associated sx: SOB, palpitations, lightheadedness. Denies SI, HI. PMHx anxiety. Pt did not take his medications today because he ran out today. Pt states he has been taking more medication than he was prescribed. - History Of Current Complaint Chief Complaint: EDGeneral Time Seen by Provider: 06/30/17 17:36 Hx Obtained From: Patient Onset/Duration: Lasting Hours, Still Present Timing: Constant Character: Anxious Aggravating Factor(s): Nothing Alleviating Factor(s): Medication - Nateonopin Has Suicidal: Denies: Thoughts Has Homicidal: Denies: Thoughts - Allergies/Home Medications Allergies/Adverse Reactions: Allergies Allergy/AdvReac Type Severity Reaction Status Date / Time Penicillins [PCN] Allergy Unknown Verified 06/22/17 03:44 Reaction Details Shellfish Allergy Allergy Unknown Verified 06/22/17 03:44 Reaction Details PMH/Surg Hx/FS Hx/Imm Hx Previously Healthy: No Endocrine/Hematology History: Denies: Hx Anticoagulant Therapy, Hx Diabetes, Hx Thyroid Disease Cardiovascular History: Denies: Hx Congestive Heart Failure, Hx Deep Vein Thrombosis, Hx Hypertension , Hx Myocardial Infarction, Hx Pacemaker/ICD Respiratory History: Reports: Hx Asthma - Albuterol inhaler episodically. Denies: Hx Chronic Obstructive Pulmonary Disease (COPD), Hx Lung Cancer, Hx Pneumonia, Hx Pulmonary Embolism GI History: Reports: Other GI Disorders - Hepatitis B Denies: Hx Gall Bladder Disease, Hx Gastrointestinal Bleed, Hx Ulcer, Hx Urosepsis History: Denies: Hx Kidney Stones, Hx Renal Disease Musculoskeletal History: Reports: Hx Fibromyalgia - 2005 ER visit for medication Neurological History: Reports: Hx Migraine Denies: Hx Dementia, Hx Seizures, Hx Transient Ischemic Attacks (TIA) Psychiatric History: Reports: Hx Anxiety, Hx Depression, Hx Community Mental Health Tx - seen at [facility], Hx Schizophrenia Denies: Hx Eating Disorder, Hx Panic Disorder, Hx of Violent Episodes Against Others - Surgical History Surgery Procedure, Year, and Place: Appendectomy, HERNIA REPAIR Hx Anesthesia Reactions: No - Immunization History Date of Tetanus Vaccine: pt states w/in last 10 years Date of Influenza Vaccine: 2013 Infectious Disease History: No Infectious Disease History: Denies: Hx Clostridium Difficile, Hx Hepatitis, Hx Human Immunodeficiency Virus (HIV), Hx of Known/Suspected MRSA, Hx Shingles, Hx Tuberculosis, Hx Known/ Suspected VRE, Hx Known/Suspected VRSA, History Other Infectious Disease, Traveled Outside the [place] in Last 30 Days - Family History Known Family History: Positive: Hypertension, Other - Cancer in father. Mother has Alzheimers - Social History Alcohol Use: None Alcohol Amount: took a shot of vodka tonight Hx Substance Use: Yes Substance Use Type: Reports: Other Substance Use Comment - Amount & Last Used: now vicodin and percocet Hx Tobacco Use: Yes Smoking Status (MU): Current Every Day Smoker Amount Used/How Often: 1/2 ppd Length of Time of Smoking/Using Tobacco: 25 years Have You Smoked in the Last Year: Yes Review of Systems Constitutional: Negative Eyes: Negative ENT: Negative Positive: Palpitations Positive: Shortness Of Breath Gastrointestinal: Negative Genitourinary: Negative Musculoskeletal: Negative Skin: Negative Neurological: Other - Lightheadedness Positive: Anxious All Other Systems Reviewed And Are Negative: Yes Physical Exam - Summary Physical Exam Summary: VITAL SIGNS: Reviewed. GENERAL: Patient is a well-developed and nourished female who is lying comfortable in the stretcher. Patient is not in any acute respiratory distress. HEAD AND FACE: No signs of trauma. No ecchymosis, hematomas or skull depressions. No sinus tenderness. EYES: PERRLA, EOMI x 2, No injected conjunctiva, no nystagmus. EARS: Hearing grossly intact. Ear canals and tympanic membranes are within normal limits. MOUTH: Oropharynx within normal limits. NECK: Supple, trachea is midline, no adenopathy, no JVD, no carotid bruit, no c- spine tenderness, neck with full ROM. CHEST: Symmetric, no tenderness at palpation LUNGS: Clear to auscultation bilaterally. No wheezing or crackles. CVS: Regular rate and rhythm, S1 and S2 present, no murmurs or gallops appreciated. ABDOMEN: Soft, non-tender. No signs of distention. No rebound no guarding, and no masses palpated. Bowel sounds are normal. EXTREMITIES: FROM in all major joints, no edema, no cyanosis or clubbing. NEURO: Alert and oriented x 3. No acute neurological deficits. Speech is normal and follows commands. SKIN: Dry and warm Psych: Anxious Triage Information Reviewed: Yes Vital Signs On Initial Exam: Initial Vitals Temp Pulse Resp BP Pulse Ox 98.2 F 101 20 134/97 97 06/30/17 16:51 06/30/17 16:51 06/30/17 16:51 06/30/17 16:51 06/30/17 16:51 Vital Signs Reviewed: Yes - [place] Coma Scale Coma Scale Total: 15 Diagnostics - Vital Signs Vital Signs Temp Pulse Resp BP Pulse Ox 06/30/17 16:51 98.2 F 101 20 134/97 97 - Laboratory Lab Statement: Any lab studies that have been ordered have been reviewed, and results considered in the medical decision making process. Course/Dx - Course Assessment/Plan: 46 y/o male presents to the ED c/o anxiety that became worse today. Pt reports nothing helps the anxiety other than Klonopin. Per triage note , the pt states that he has been treating his anxiety with breathing treatments. Associated sx: SOB, palpitations, lightheadedness. Denies SI, HI. PMHx anxiety. Pt did not take his medications today because he ran out today. Pt states he has been taking more medication than he was prescribed. Pt reports that he is having an anxiety attack and has run out of his medications. Pt was given PO Klonopin in the ER and given 3 Klonopins for tomorrow. Pt will f/u with PCP for refill on Sunday. The pt is hemodynamically stable, A&Ox3. - Differential Dx/Clinical Impression Provider Diagnosis: Anxiety Discharge - Discharge Plan Condition: Stable Disposition: HOME Prescriptions: clonazePAM TAB(*) [KlonoPIN TAB(*)] 0.5 mg PO TID PRN #3 tab MDD 3 PRN Reason: Anxiety Patient Education Materials: Anxiety (ED) Referrals: Prasad Shah MD [Primary Care Provider] - 3 Days (PLEASE F/U IN 2-3 DAYS) The documentation as recorded by the Katie multani Edward accurately reflects the service I personally performed and the decisions made by , Gus Lugo MD.
== END 2017-06-30 18:11 | disposition home or self-care (01) ==
LOC: ED 16:44
DX: F41.9 Anxiety disorder, unspecified (principal); R00.2 Palpitations; R06.02 Shortness of breath; J45.909 Unspecified asthma, uncomplicated; M79.7 Fibromyalgia; G43.909 Migraine, unspecified, not intractable, without status migrainosus; F32.9 Major depressive disorder, single episode, unspecified; Z88.0 Allergy status to penicillin; F17.210 Nicotine dependence, cigarettes, uncomplicated
CPT/HCPCS: 99282; A9270-GY

== ENCOUNTER 2017-07-13 20:36 | Emergency (ER) | payer MEDICARE, MEDICAID ==
[2017-07-13] MEDS ORDERED: HYDROcodone/ACETAMIN 5-325 MG* 1 TAB PO ONE (22:05)
[2017-07-13] MEDS ORDERED: Ketorolac INJ* 60 MG/2 ML VIAL IM ONE (22:05)
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
[2017-07-13 22:21] VITALS: BP 122/73
== END 2017-07-13 22:19 | disposition home or self-care (01) ==
LOC: ED 20:36
DX: M79.7 Fibromyalgia (principal); F17.210 Nicotine dependence, cigarettes, uncomplicated
CPT/HCPCS: 96372; 99281; J1885

== ENCOUNTER 2017-07-14 19:32 | Emergency (ER) | payer MEDICARE, MEDICAID ==
[2017-07-14 19:38] VITALS: BP 125/69
[2017-07-14] MEDS ORDERED: oxyCODONE/Acetamin 5/325 MG* TAB PO ONE ×2 (21:56)
--- NOTE | 2017-07-15 00:11 | ED ---
Sary Guajardo Emily, scribed for Robert Sotelo on 07/14/17 at 2158 . Headache - HPI Summary HPI Summary: This patient is a 46 year old M presenting to [facility] with a chief complaint of headache that began earlier today. CC is described as a migraine Pt describes feeling like his skin is on fire. The patient rates the pain 8/10 in severity. Symptoms aggravated by nothing. Symptoms alleviated by nothing. Patient reports widespread pain and SOB. PMHx includes fibromyalgia. - History Of Current Complaint Chief Complaint: EDHeadache Stated Complaint: BODY PAIN Time Seen by Provider: 07/14/17 21:46 Hx Obtained From: Patient Onset/Duration: Sudden Onset, Started hours ago, Still Present Initially Headache Was: Severe Currently Pain Is: Current Pain Scale(0-10)= - 8/10, Severe Timing: Constant, Hours Character: Migraine Aggravating Factor: Nothing Allevating Factors: Nothing Associated Signs And Symptoms: Other (Noted In Comments) - Positive wide spread pain - Allergies/Home Medications Allergies/Adverse Reactions: Allergies Allergy/AdvReac Type Severity Reaction Status Date / Time Penicillins [PCN] Allergy Unknown Verified 07/13/17 20:42 Reaction Details Shellfish Allergy Allergy Unknown Verified 07/13/17 20:42 Reaction Details PMH/Surg Hx/FS Hx/Imm Hx Previously Healthy: No Endocrine/Hematology History: Denies: Hx Anticoagulant Therapy, Hx Diabetes, Hx Thyroid Disease Cardiovascular History: Denies: Hx Congestive Heart Failure, Hx Deep Vein Thrombosis, Hx Hypertension , Hx Myocardial Infarction, Hx Pacemaker/ICD Respiratory History: Reports: Hx Asthma - Albuterol inhaler episodically. Denies: Hx Chronic Obstructive Pulmonary Disease (COPD), Hx Lung Cancer, Hx Pneumonia, Hx Pulmonary Embolism GI History: Reports: Other GI Disorders - Hepatitis B Denies: Hx Gall Bladder Disease, Hx Gastrointestinal Bleed, Hx Ulcer, Hx Urosepsis History: Denies: Hx Kidney Stones, Hx Renal Disease Musculoskeletal History: Reports: Hx Fibromyalgia - 2005 ER visit for medication Neurological History: Reports: Hx Migraine Denies: Hx Dementia, Hx Seizures, Hx Transient Ischemic Attacks (TIA) Psychiatric History: Reports: Hx Anxiety, Hx Depression, Hx Community Mental Health Tx - seen at [facility], Hx Schizophrenia Denies: Hx Eating Disorder, Hx Panic Disorder, Hx of Violent Episodes Against Others - Surgical History Surgery Procedure, Year, and Place: Appendectomy, HERNIA REPAIR Hx Anesthesia Reactions: No - Immunization History Date of Tetanus Vaccine: pt states w/in last 10 years Date of Influenza Vaccine: 2014 Immunizations Up to Date: Yes Infectious Disease History: No Infectious Disease History: Denies: Hx Clostridium Difficile, Hx Hepatitis, Hx Human Immunodeficiency Virus (HIV), Hx of Known/Suspected MRSA, Hx Shingles, Hx Tuberculosis, Hx Known/ Suspected VRE, Hx Known/Suspected VRSA, History Other Infectious Disease, Traveled Outside the [place] in Last 30 Days - Family History Known Family History: Positive: None - reviewed & noncontributory, Hypertension , Other - Cancer in father. Mother has Alzheimers - Social History Occupation: Disabled Lives: Alone Alcohol Use: None Alcohol Amount: took a shot of vodka tonight Hx Substance Use: Yes Substance Use Type: Reports: None, Other Substance Use Comment - Amount & Last Used: now vicodin and percocet Hx Tobacco Use: Yes Smoking Status (MU): Heavy Every Day Tobacco Smoker Amount Used/How Often: 1/2 ppd Length of Time of Smoking/Using Tobacco: 25 years Have You Smoked in the Last Year: Yes Review of Systems Positive: Shortness Of Breath Positive: Other - Positive wide spread pain Negative: Headache All Other Systems Reviewed And Are Negative: Yes Physical Exam Triage Information Reviewed: Yes Vital Signs On Initial Exam: Initial Vitals Temp Pulse Resp BP Pulse Ox 98.4 F 79 14 125/69 98 07/14/17 19:34 07/14/17 19:34 07/14/17 19:34 07/14/17 19:34 07/14/17 19:34 Vital Signs Reviewed: Yes Appearance: Positive: Well-Appearing, No Pain Distress Skin: Positive: Warm, Skin Color Reflects Adequate Perfusion, Dry Head/Face: Positive: Normal Head/Face Inspection Eyes: Positive: EOMI, NAIN ENT: Positive: Normal ENT inspection Neck: Positive: Supple, Nontender Respiratory/Lung Sounds: Positive: Clear to Auscultation, Breath Sounds Present Cardiovascular: Positive: RRR, Pulses are Symmetrical in both Upper and Lower Extremities Abdomen Description: Positive: Nontender, Soft Bowel Sounds: Positive: Present Musculoskeletal: Positive: Normal, Strength/ROM Intact Neurological: Positive: Normal, Sensory/Motor Intact, Alert, Oriented to Person Place, Time - [place] Coma Scale Coma Scale Total: 15 Diagnostics - Vital Signs Vital Signs Temp Pulse Resp BP Pulse Ox 07/14/17 19:34 98.4 F 79 14 125/69 98 - Laboratory Lab Statement: Any lab studies that have been ordered have been reviewed, and results considered in the medical decision making process. Headache Course/Dx - Course Assessment/Plan: This patient is a 46 year old M presenting to [facility] with a chief complaint of headache that began earlier today. CC is described as a migraine Pt describes feeling like his skin is on fire. The patient rates the pain 8/10 in severity. Symptoms aggravated by nothing. Symptoms alleviated by nothing. Patient reports widespread pain and SOB. PMHx includes fibromyalgia. Physical Exam Findings. Negative. Medical Decision Making. Pt denied CT scans and bloodwork; he requested a new prescription for his pain. Patient will be discharged with prescription for percocet and follow up from Dr. Cardenas (pain management). The patient is agreeable with this plan. - Diagnoses Provider Diagnoses: Headache, Chronic pain, Fibromyalgia Discharge - Discharge Plan Condition: Stable Disposition: HOME Prescriptions: oxyCODONE/Acetamin 5/325 MG* [Percocet 5/325 TAB*] 1 tab PO Q8H PRN #10 tab MDD 3 PRN Reason: Pain - Mild Patient Education Materials: Oxycodone/Acetaminophen (By mouth), Acute Headache (ED), Fibromyalgia (ED) Referrals: Prasad Shah MD [Primary Care Provider] - 3 Days Hay Cardenas MD [Medical Doctor] - 1 Day Additional Instructions: FOLLOW UP WITH PAIN MANAGEMENT IN 1 DAY. RETURN TO THE EMERGENCY DEPARTMENT FOR CHANGING OR WORSENING SYMPTOMS. The documentation as recorded by the Sary multani Emily accurately reflects the service I personally performed and the decisions made by Ashleigh casas Emmanuel.
== END 2017-07-14 22:47 | disposition home or self-care (01) ==
LOC: ED 19:32
DX: R51 Headache (principal); G89.29 Other chronic pain; M79.7 Fibromyalgia; F17.210 Nicotine dependence, cigarettes, uncomplicated
CPT/HCPCS: 99281; A9270-GY

== ENCOUNTER → 2018-12-04 01:48 | Emergency (ER) | payer MEDICAID, MEDICARE ==
[~2018-12-04 01:48] MED LIST changes: +Albuterol HFA INHALER* 8 gm MDI INH ONE; +Albuterol HFA INHALER* 8 gm MDI INH PRN; +Albuterol/Ipratropium NEB.SOL* Albuterol 2.5 MG/Ipratropium 0.5 MG 3 ML INH ONE; +clonazePAM TAB(*) 1 MG PO ONE; +predniSONE TAB* 50 MG PO ONE
--- NOTE | 2018-12-04 02:22 | ED ---
Respiratory - HPI Summary HPI Summary: This patient is a 48 year old M presenting to [facility] with a chief complaint of a cough since 2 weeks ago. The patient rates the pain 2/10 in severity. Patient reports congestion, abdominal pain (secondary to coughing), and back pain ( secondary to coughing). Patient denies fever. He has PMHx of asthma and a SHx as a lifelong smoker. - History of Current Complaint Chief Complaint: EDUpperRespComplaint Stated Complaint: DIFF BREATHING PER PT Time Seen by Provider: 12/04/18 02:09 Hx Obtained From: Patient Onset/Duration: Lasting Weeks - 2 weeks, Still Present Initial Severity: Mild Current Severity: Mild Pain Intensity: 2 Character: Cough (Nonproductive) Aggravating Factor(s): Nothing Alleviating Factor(s): Nothing Associated Signs and Symptoms: Nasal Congestion - Allergy/Home Medications Allergies/Adverse Reactions: Allergies Allergy/AdvReac Type Severity Reaction Status Date / Time MS Penicillins [PCN] Allergy Unknown Verified 12/04/18 01:54 Reaction Details MS Shellfish Allergy Allergy Unknown Verified 12/04/18 01:54 [Shellfish Allergy] Reaction Details Home Medications: Home Medications Amphetamine MIXED SALT TAB* [Adderall TAB*] 20 mg PO TID 12/04/18 [History Confirmed 12/04/18] Cyclobenzaprine HCl 10 mg PO BEDTIME 12/04/18 [History Confirmed 12/04/18] clonazePAM TAB(*) [KlonoPIN TAB(*)] 1 mg PO TID PRN MDD 3 12/04/18 [History Confirmed 12/04/18] PMH/Surg Hx/FS Hx/Imm Hx Endocrine/Hematology History: Denies: Hx Anticoagulant Therapy, Hx Diabetes, Hx Thyroid Disease Cardiovascular History: Denies: Hx Congestive Heart Failure, Hx Deep Vein Thrombosis, Hx Hypertension , Hx Myocardial Infarction, Hx Pacemaker/ICD Respiratory History: Reports: Hx Asthma - Albuterol inhaler episodically. Denies: Hx Chronic Obstructive Pulmonary Disease (COPD), Hx Lung Cancer, Hx Pneumonia, Hx Pulmonary Embolism GI History: Reports: Other GI Disorders - Hepatitis B Denies: Hx Gall Bladder Disease, Hx Gastrointestinal Bleed, Hx Ulcer, Hx Urosepsis History: Denies: Hx Kidney Stones, Hx Renal Disease Musculoskeletal History: Reports: Hx Fibromyalgia - 2005 ER visit for medication Neurological History: Reports: Hx Migraine Denies: Hx Dementia, Hx Seizures, Hx Transient Ischemic Attacks (TIA) Psychiatric History: Reports: Hx Anxiety, Hx Depression, Hx Community Mental Health Tx - seen at [facility], Hx Schizophrenia Denies: Hx Eating Disorder, Hx Panic Disorder, Hx of Violent Episodes Against Others - Surgical History Surgery Procedure, Year, and Place: Appendectomy, HERNIA REPAIR Hx Anesthesia Reactions: No - Immunization History Date of Tetanus Vaccine: pt states w/in last 10 years Date of Influenza Vaccine: 2013 Infectious Disease History: Yes Infectious Disease History: Denies: Hx Clostridium Difficile, Hx Hepatitis, Hx Human Immunodeficiency Virus (HIV), Hx of Known/Suspected MRSA, Hx Shingles, Hx Tuberculosis, Hx Known/ Suspected VRE, Hx Known/Suspected VRSA, History Other Infectious Disease, Traveled Outside the [place] in Last 30 Days - Family History Known Family History: Positive: Hypertension, Other - Cancer in father. Mother has Alzheimers - Social History Alcohol Use: None Alcohol Amount: took a shot of vodka tonight Hx Substance Use: Yes Substance Use Type: Reports: None, Other Substance Use Comment - Amount & Last Used: now vicodin and percocet Hx Tobacco Use: Yes Smoking Status (MU): Heavy Every Day Tobacco Smoker Amount Used/How Often: 1/2 ppd Length of Time of Smoking/Using Tobacco: 25 years Have You Smoked in the Last Year: Yes Review of Systems Negative: Fever Positive: Other - Congestion Positive: Cough Positive: Abdominal Pain - Secondary to coughing Positive: Other - Back pain secondary to coughing All Other Systems Reviewed And Are Negative: Yes Physical Exam - Summary Physical Exam Summary: VITAL SIGNS: Reviewed. GENERAL: Patient is a well-developed and nourished MALE who is lying comfortable in the stretcher. Patient is not in any acute respiratory distress. HEAD AND FACE: No signs of trauma. No ecchymosis, hematomas or skull depressions. No sinus tenderness. EYES: PERRLA, EOMI x 2, No injected conjunctiva, no nystagmus. EARS: Hearing grossly intact. Ear canals and tympanic membranes are within normal limits. MOUTH: Oropharynx within normal limits. NECK: Supple, trachea is midline, no adenopathy, no JVD, no carotid bruit, no c- spine tenderness, neck with full ROM. CHEST: Symmetric, no tenderness at palpation LUNGS: Decreased breath sounds. No wheezing or crackles. CVS: Regular rate and rhythm, S1 and S2 present, no murmurs or gallops appreciated. ABDOMEN: Soft, non-tender. No signs of distention. No rebound no guarding, and no masses palpated. Bowel sounds are normal. EXTREMITIES: FROM in all major joints, no edema, no cyanosis or clubbing. NEURO: Alert and oriented x 3. No acute neurological deficits. Speech is normal and follows commands. SKIN: Dry and warm Triage Information Reviewed: Yes Vital Signs On Initial Exam: Initial Vitals Temp Pulse Resp BP Pulse Ox 98.9 F 82 16 126/73 95 12/04/18 01:50 12/04/18 01:50 12/04/18 01:50 12/04/18 01:50 12/04/18 01:50 Vital Signs Reviewed: Yes Diagnostics - Vital Signs Vital Signs Temp Pulse Resp BP Pulse Ox 12/04/18 01:50 98.9 F 82 16 126/73 95 - Laboratory Lab Statement: Any lab studies that have been ordered have been reviewed, and results considered in the medical decision making process. - Radiology Chest X-Ray Radiology Interpretation Completed By: ED Physician Summary of Radiographic Findings: 03:05. No acute process. Pending official report. Disposition - Course Course Of Treatment: This patient is a 48 year old M presenting to [facility] with a chief complaint of a cough since 2 weeks ago. Patient was negative for influenza. Chest x-ray was normal. Patient will be D/C with a dx of viral syndrome with albuterol and prednisone. - Diagnoses Provider Diagnoses: Viral syndrome Discharge - Sign-Out/Discharge Documenting (check all that apply): Patient Departure - D/C home Patient Received Moderate/Deep Sedation with Procedure: No - Discharge Plan Condition: Stable Disposition: HOME Prescriptions: Albuterol HFA INHALER* [Ventolin HFA Inhaler*] 2 puff INH Q6H PRN #1 mdi PRN Reason: Shortness Of Breath predniSONE TAB* [Deltasone TAB*] 50 mg PO DAILY #5 tab Patient Education Materials: Viral Syndrome (ED) Referrals: Prasad Shah MD [Primary Care Provider] - 2 Days Additional Instructions: RETURN TO THE EMERGENCY DEPARTMENT FOR CHANGING OR WORSENING SYMPTOMS. FOLLOW UP WITH PCP IN 1-2 DAYS. - Attestation Statements Document Initiated by Scribe: Yes Documenting Scribe: Nathaniel Resendez Provider For Whom Scribe is Documenting (Include Credential): Rick Barr MD Scribe Attestation: Nathaniel Guajardo, scribed for Rick Barr MD on 12/04/18 at 0313. Status of Scribe Document: Ready
[2018-12-04 03:02] LABS: Influenza A Molecular NEGATIVE (Negative); Influenza B Molecular NEGATIVE (Negative)
[2018-12-04 04:05] VITALS: BP 108/78
== END | disposition home or self-care (01) ==
LOC: ED 01:48
DX: B34.9 Viral infection, unspecified (principal); J45.909 Unspecified asthma, uncomplicated; Z88.0 Allergy status to penicillin; Z88.2 Allergy status to sulfonamides; F17.200 Nicotine dependence, unspecified, uncomplicated
CPT/HCPCS: 71045; 99283; A9270-GY; J7512

== ENCOUNTER 2018-12-27 23:43 | Emergency (ER) | payer MEDICARE ==
[2018-12-28] MEDS ORDERED: Albuterol/Ipratropium NEB.SOL* Albuterol 2.5 MG/Ipratropium 0.5 MG 3 ML INH ONE (01:21)
[2018-12-28] MEDS ORDERED: Ketorolac INJ* 60 MG/2 ML VIAL IM ONE (01:22)
[2018-12-28] MEDS ORDERED: Ondansetron ODT TAB* 4 MG PO ONE (01:22)
[2018-12-28] MEDS ORDERED: SUMAtriptan TAB* 50 MG PO ONE (01:23)
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
[2018-12-28] MEDS ORDERED: predniSONE TAB* 20 MG PO ONE (01:54)
[2018-12-28] MEDS ORDERED: Albuterol HFA INHALER* 8 gm MDI INH ONE (01:54)
[2018-12-28] MEDS ORDERED: diPHENhydraMINE PO* 25 MG PO ONE (01:58)
[2018-12-28 02:16] VITALS: BP 141/79
== END 2018-12-28 02:15 | disposition home or self-care (01) ==
LOC: ED 23:43
DX: G43.909 Migraine, unspecified, not intractable, without status migrainosus (principal); R11.10 Vomiting, unspecified; J45.909 Unspecified asthma, uncomplicated; Z76.0 Encounter for issue of repeat prescription; B19.10 Unspecified viral hepatitis B without hepatic coma; M79.7 Fibromyalgia; F41.9 Anxiety disorder, unspecified; F32.9 Major depressive disorder, single episode, unspecified; F20.9 Schizophrenia, unspecified; F17.210 Nicotine dependence, cigarettes, uncomplicated; Z88.0 Allergy status to penicillin
CPT/HCPCS: 96374; 99282; A9270-GY; J1885; J7512

== ENCOUNTER 2018-12-28 16:43 | Emergency (ER) | payer MEDICARE ==
[2018-12-28] MEDS ORDERED: NS 0.9% 1000 ML** 1,000 ML IV ONE (19:54)
[2018-12-28] MEDS ORDERED: PROCHLORPERAZINE INJ 5 MG/ML 2 ML VIAL IV ONE (19:54)
[2018-12-28] MEDS ORDERED: Albuterol/Ipratropium NEB.SOL* Albuterol 2.5 MG/Ipratropium 0.5 MG 3 ML INH ONE (19:55)
[2018-12-28] MEDS ORDERED: Ketorolac INJ* 30 MG/ML 1 ML VIAL IV PUSH ONE (19:55)
[2018-12-28 20:30] LABS: ABS Basophils 0 10^3/ul (0-0.2); ABS Eosinophils 0 10^3/ul (0-0.6); ABS Lymphocytes 1.5 10^3/ul (1.0-4.8); ABS Monocytes 0.8 10^3/ul (0-0.8); ABS Neutrophils 10.6 10^3/ul (1.5-7.7); ABS Nucleated RBC 0 10^3/ul; Eosinophil % 0 %; Hematocrit 36 % (36-46); Lymphocyte % 11.6 %; Mean Corpuscular HGB Conc 34 g/dL (31-36); Mean Corpuscular Hemoglobin 33 pg (27-31); Mean Corpuscular Volume 99 fL (80-94); Mean Platelet Volume 7.7 fL (7.4-10.4); Nucleated Red Blood Cells % 0; Platelet Count 271 10^3/uL (150-450); Red Blood Count 3.61 10^6 /uL (4.18-5.48); Red Cell Distribution Width 16 % (10.5-15); White Blood Count 12.9 10^3/uL (3.5-10.8)
[2018-12-28 20:47] LABS: Albumin 4.4 g/dL (3.2-5.2); Albumin/Globulin Ratio 1.9 (1-3); BUN/Creatinine Ratio 12.5 (8-20); C Reactive Protein 9.88 mg/L (<8.01); Calcium 9.3 mg/dL (8.6-10.3); EGFR African American 101.6 (>60); Globulin 2.3 g/dL (2-4); Magnesium 2.2 mg/dL (1.9-2.7); Potassium 3.9 mmol/L (3.5-5.0); Total Bilirubin 0.4 mg/dL (0.2-1.0); Total Protein 6.7 g/dL (6.4-8.9)
--- NOTE | 2018-12-28 20:55 | ED ---
Complex/Multi-Sys Presentation - HPI Summary HPI Summary: 48-year-old male presents with continued nausea and vomiting today. He was seen yesterday for the same thing. He states that he was unable to keep anything down. He did have a sandwich while in the ER yesterday. He denies any bowel pain. He admits to all over body pains. He admits to continuation of a cough. He admits occasional shortness of breath. He has been using his inhaler. States has not been able to keep any of the pills down. He states he is running out of his hydrocodoneand is requesting a refill. Denies any fevers currently. - History Of Current Complaint Chief Complaint: EDFluSymptoms Time Seen by Provider: 12/28/18 19:46 - Allergies/Home Medications Allergies/Adverse Reactions: Allergies Allergy/AdvReac Type Severity Reaction Status Date / Time Penicillins Allergy Unknown Verified 12/28/18 16:48 Reaction Details shellfish derived Allergy Unknown Verified 12/28/18 16:48 Reaction Details PMH/Surg Hx/FS Hx/Imm Hx Endocrine/Hematology History: Denies: Hx Anticoagulant Therapy, Hx Diabetes, Hx Thyroid Disease Cardiovascular History: Denies: Hx Congestive Heart Failure, Hx Deep Vein Thrombosis, Hx Hypertension , Hx Myocardial Infarction, Hx Pacemaker/ICD Respiratory History: Reports: Hx Asthma - Albuterol inhaler episodically. Denies: Hx Chronic Obstructive Pulmonary Disease (COPD), Hx Lung Cancer, Hx Pneumonia, Hx Pulmonary Embolism GI History: Reports: Other GI Disorders - Hepatitis B Denies: Hx Gall Bladder Disease, Hx Gastrointestinal Bleed, Hx Ulcer, Hx Urosepsis History: Denies: Hx Kidney Stones, Hx Renal Disease Musculoskeletal History: Reports: Hx Fibromyalgia - 2006 ER visit for medication Neurological History: Reports: Hx Migraine Denies: Hx Dementia, Hx Seizures, Hx Transient Ischemic Attacks (TIA) Psychiatric History: Reports: Hx Anxiety, Hx Depression, Hx Community Mental Health Tx - seen at [facility], Hx Schizophrenia Denies: Hx Eating Disorder, Hx Panic Disorder, Hx of Violent Episodes Against Others - Surgical History Surgery Procedure, Year, and Place: Appendectomy, HERNIA REPAIR Hx Anesthesia Reactions: No - Immunization History Date of Tetanus Vaccine: pt states w/in last 10 years Date of Influenza Vaccine: 2013 Infectious Disease History: No Infectious Disease History: Denies: Hx Clostridium Difficile, Hx Hepatitis, Hx Human Immunodeficiency Virus (HIV), Hx of Known/Suspected MRSA, Hx Shingles, Hx Tuberculosis, Hx Known/ Suspected VRE, Hx Known/Suspected VRSA, History Other Infectious Disease, Traveled Outside the [place] in Last 30 Days - Family History Known Family History: Positive: None - reviewed & noncontributory, Hypertension , Other - Cancer in father. Mother has Alzheimers - Social History Alcohol Use: None Alcohol Amount: took a shot of vodka tonight Hx Substance Use: Yes Substance Use Type: Reports: Marijuana Substance Use Comment - Amount & Last Used: now vicodin and percocet Hx Tobacco Use: Yes Smoking Status (MU): Heavy Every Day Tobacco Smoker Amount Used/How Often: 1/2 ppd Length of Time of Smoking/Using Tobacco: 25 years Have You Smoked in the Last Year: Yes Review of Systems Negative: Fever Negative: Chest Pain Positive: Cough. Negative: Shortness Of Breath Positive: Vomiting, Nausea Positive: Headache All Other Systems Reviewed And Are Negative: Yes Physical Exam Triage Information Reviewed: Yes Vital Signs On Initial Exam: Initial Vitals Temp Pulse Resp BP Pulse Ox 99.2 F 71 14 133/79 93 12/28/18 16:48 12/28/18 16:48 12/28/18 16:48 12/28/18 16:48 12/28/18 16:48 Vital Signs Reviewed: Yes Appearance: Positive: Well-Appearing Skin: Positive: Warm, Dry Head/Face: Positive: Normal Head/Face Inspection Eyes: Positive: Normal, EOMI, NAIN, Conjunctiva Clear ENT: Positive: Normal ENT inspection, Pharynx normal, TMs normal Respiratory/Lung Sounds: Positive: Breath Sounds Present, Wheezes Cardiovascular: Positive: Normal, RRR Abdomen Description: Positive: Nontender, Soft Bowel Sounds: Positive: Present Musculoskeletal: Positive: Normal Neurological: Positive: Normal Psychiatric: Positive: Normal Diagnostics - Vital Signs Vital Signs Temp Pulse Resp BP Pulse Ox 12/28/18 20:25 71 101/71 92 12/28/18 20:01 70 91 12/28/18 19:55 70 89 12/28/18 19:54 65 124/88 95 12/28/18 18:31 98.9 F 75 16 123/76 92 12/28/18 16:48 99.2 F 71 14 133/79 93 - Laboratory Lab Results: Lab Results 12/28/18 12/28/18 Range/Units 20:20 20:20 WBC 12.9 H (3.5-10.8) 10^3/uL RBC 3.61 L (4.18-5.48) 10^6 /uL Hgb 12.0 L (14.0-18.0) g/dL Hct 36 (36-46) % MCV 99 H (80-94) fL MCH 33 H (27-31) pg MCHC 34 (31-36) g/dL RDW 16 H (10.5-15) % Plt Count 271 (150-450) 10^3/uL MPV 7.7 (7.4-10.4) fL Neut % (Auto) 82.2 % Lymph % (Auto) 11.6 % [place] % (Auto) 6.0 % Eos % (Auto) 0 % Baso % (Auto) 0.2 % Absolute Neuts (auto) 10.6 H (1.5-7.7) 10^3/ul Absolute Lymphs (auto) 1.5 (1.0-4.8) 10^3/ul Absolute Monos (auto) 0.8 (0-0.8) 10^3/ul Absolute Eos (auto) 0 (0-0.6) 10^3/ul Absolute Basos (auto) 0 (0-0.2) 10^3/ul Absolute Nucleated RBC 0 10^3/ul Nucleated RBC % 0 Sodium 141 (135-145) mmol/L Potassium 3.9 (3.5-5.0) mmol/L Chloride 105 (101-111) mmol/L Carbon Dioxide 29 (22-32) mmol/L Anion Gap 7 (2-11) mmol/L BUN 12 (6-24) mg/dL Creatinine 0.96 (0.67-1.17) mg/dL Est GFR ( Amer) 101.6 (>60) Est GFR (Non-Af Amer) 84.0 (>60) BUN/Creatinine Ratio 12.5 (8-20) Glucose 112 H (70-100) mg/dL Calcium 9.3 (8.6-10.3) mg/dL Magnesium 2.2 (1.9-2.7) mg/dL Total Bilirubin 0.40 (0.2-1.0) mg/dL AST 20 (13-39) U/L ALT 23 (7-52) U/L Alkaline Phosphatase 67 (34-104) U/L C-Reactive Protein 9.88 H (<8.01) mg/L Total Protein 6.7 (6.4-8.9) g/dL Albumin 4.4 (3.2-5.2) g/dL Globulin 2.3 (2-4) g/dL Albumin/Globulin Ratio 1.9 (1-3) Lipase 33 (11.0-82.0) U/L Result Diagrams: 12/28/18 20:20 12/28/18 20:20 Lab Statement: Any lab studies that have been ordered have been reviewed, and results considered in the medical decision making process. - Radiology chest Radiology Interpretation Completed By: ED Physician Summary of Radiographic Findings: nad Re-Evaluation - Re-Evaluation First Eval Re-Evaluation Time: 21:20 Change: Improved Comment: asking for a sandwich, nausea resolved, wants to go home Complex Multi-Symp Course/Dx Course Of Treatment: 48-year-old male presents with continued nausea and vomiting today. He was seen yesterday for the same thing. He states that he was unable to keep anything down. He did have a sandwich while in the ER yesterday. He denies any bowel pain. He admits to all over body pains. He admits to continuation of a cough. He admits occasional shortness of breath. He has been using his inhaler. States has not been able to keep any of the pills down. He states he is running out of his hydrocodoneand is requesting a refill. Denies any fevers currently. On exam mild wheezing noted. Normal neuro exam. Gave breathing treatment and lungs CTA. wbc 12. Electrolytes normal. Chest x-ray normal me as normal. Gave him zofran and fluids and feeling better. Patient would like to be discharged. gave zofran yesterday that told to continue. Patient understands and agrees with plan. - Diagnoses Differential Diagnoses/HQI/PQRI: Metabolic Abnormality, Other - pneumonia, bronchitis Provider Diagnoses: Vomiting, Bronchitis Discharge - Sign-Out/Discharge Documenting (check all that apply): Patient Departure Patient Received Moderate/Deep Sedation with Procedure: No - Discharge Plan Condition: Good Disposition: HOME Patient Education Materials: Acute Nausea and Vomiting (ED) Referrals: Prasad Shah MD [Primary Care Provider] - Additional Instructions: take zofran every 6 hours as needed for nausea Follow up with primary Take tyenlol or ibuprofen as needed for pain every 6 hours Return to ED if develop any new or worsening symptoms - Billing Disposition and Condition Condition: GOOD Disposition: Home
[2018-12-28 21:13] LABS: Influenza A Molecular NEGATIVE (Negative); Influenza B Molecular NEGATIVE (Negative)
[2018-12-28 21:20] VITALS: BP 116/77
== END 2018-12-28 21:27 | disposition home or self-care (01) ==
LOC: ED 16:43
DX: R11.10 Vomiting, unspecified (principal); J40 Bronchitis, not specified as acute or chronic; B19.10 Unspecified viral hepatitis B without hepatic coma; M79.7 Fibromyalgia; F41.9 Anxiety disorder, unspecified; F32.9 Major depressive disorder, single episode, unspecified; F17.210 Nicotine dependence, cigarettes, uncomplicated; Z88.0 Allergy status to penicillin; Z79.51 Long term (current) use of inhaled steroids
CPT/HCPCS: 36415; 71046; 80053; 83690; 83735; 85025; 86140; 86703; 96361; 96374; 96375; 99283; A9270-GY; J0780; J1885

== ENCOUNTER 2018-12-29 02:59 | Emergency (ER) | payer MEDICARE ==
[2018-12-29 04:20] VITALS: BP 129/76
== END 2018-12-29 04:21 | disposition left against medical advice (07) ==
LOC: ED 02:59
DX: R11.10 Vomiting, unspecified (principal); F41.9 Anxiety disorder, unspecified; R52 Pain, unspecified; Z53.21 Procedure and treatment not carried out due to patient leaving prior to being seen by health care provider

== ENCOUNTER 2018-12-30 03:07 | Inpatient (IN) | payer MEDICARE ==
[2018-12-30] MEDS ORDERED: Acetaminophen TAB* 325 MG PO ONE (03:36)
[2018-12-30] MEDS ORDERED: NS 0.9% 1000 ML** 1,000 ML IV ONE (03:36)
[2018-12-30] MEDS ORDERED: Metoclopramide IV* 5 MG/ML 2 ML VIAL IV SLOW PU ONE (03:37)
[2018-12-30] MEDS ORDERED: Ketorolac INJ* 30 MG/ML 1 ML VIAL IV PUSH ONE (03:37)
[2018-12-30] MEDS ORDERED: Albuterol/Ipratropium NEB.SOL* Albuterol 2.5 MG/Ipratropium 0.5 MG 3 ML INH ONE (03:38)
--- NOTE | 2018-12-30 03:41 | ED ---
Complex/Multi-Sys Presentation - HPI Summary HPI Summary: Patient is a 48 y/o M presenting to ED via ambulance with complaints of general malaise. Patient had been diagnosed with viral syndrome a few days ago and has been to [facility] on three separate previous occasions since. In the room, the patient claims that he is "deathly ill". He states that he has been vomiting for the past five days, every hour. Patient claims that he has been experiencing episodes of hematemesis as well. He reports subjective fever and diaphoresis earlier, patient took Tylenol earlier which provided relief in Sx. He also claims to be fatigued and to be experiencing "severe" abdominal pain, "fiery" diarrhea, SOB, and "difficulty communicating". Patient also notes that he has a burn on his left schultz from space heater. Patient states to have been, "struggling with my basic sanity", stating that he has been pessimistic and depressed as a result of his Sx. He also claims that Sx have worsened since he has come to ED. Patient is on zyprexa, klonipin, adderall, naproxen. 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 On triage, pain is rated 10/ 10. Nothing is noted to aggravate/alleviate Sx. Patient reports smoking a pack of cigarettes daily. Patient claims to have started smoking in . Home medications and allergies are reviewed. - History Of Current Complaint Chief Complaint: EDGeneral Time Seen by Provider: 12/30/18 03:12 Hx Obtained From: Patient Onset/Duration: Lasting Days, Still Present Timing: Constant, Days Severity Currently: Severe - 10/10 Severity Initially: Severe Location: Pain At: - abdominal pain Aggravating Factor(s): nothing Alleviating Factor(s): nothing Associated Signs And Symptoms: Positive: SOB, Vomiting, Diarrhea, Abdominal Pain , Hematemesis, Fever, Diaphoresis, Other - fatigue, malaise, left schultz burn, "struggling with basic sanity", pessimistic, depressed - Allergies/Home Medications Allergies/Adverse Reactions: Allergies Allergy/AdvReac Type Severity Reaction Status Date / Time Penicillins Allergy Unknown Verified 12/30/18 03:16 Reaction Details shellfish derived Allergy Unknown Verified 12/30/18 03:16 Reaction Details Home Medications: Home Medications Acetaminophen [Acetaminophen Extra Strength] 500 mg PO Q4H 12/30/18 [History Confirmed 12/30/18] Butalb/Acetamin/Caff TAB* [Fioricet TAB*] 1 tab PO DAILY PRN 12/30/18 [History Confirmed 12/30/18] Hydrocodone/Acetaminophen [Hydrocodone-Acetamin 5-325 mg] 1 tab PO Q4H PRN 12/30 [History Confirmed 12/30/18] Sildenafil (NF) [Viagra (NF)] 25 mg PO ONCE 12/30/18 [History Confirmed 12/30/18 ] PMH/Surg Hx/FS Hx/Imm Hx Endocrine/Hematology History: Denies: Hx Anticoagulant Therapy, Hx Diabetes, Hx Thyroid Disease Cardiovascular History: Denies: Hx Congestive Heart Failure, Hx Deep Vein Thrombosis, Hx Hypertension , Hx Myocardial Infarction, Hx Pacemaker/ICD Respiratory History: Reports: Hx Asthma - Albuterol inhaler episodically. Denies: Hx Chronic Obstructive Pulmonary Disease (COPD), Hx Lung Cancer, Hx Pneumonia, Hx Pulmonary Embolism GI History: Reports: Other GI Disorders - Hepatitis B Denies: Hx Gall Bladder Disease, Hx Gastrointestinal Bleed, Hx Ulcer, Hx Urosepsis History: Denies: Hx Kidney Stones, Hx Renal Disease Musculoskeletal History: Reports: Hx Fibromyalgia - 2006 ER visit for medication Neurological History: Reports: Hx Migraine Denies: Hx Dementia, Hx Seizures, Hx Transient Ischemic Attacks (TIA) Psychiatric History: Reports: Hx Anxiety, Hx Depression, Hx Community Mental Health Tx - seen at [facility], Hx Schizophrenia Denies: Hx Eating Disorder, Hx Panic Disorder, Hx of Violent Episodes Against Others - Surgical History Surgery Procedure, Year, and Place: Appendectomy, HERNIA REPAIR Hx Anesthesia Reactions: No - Immunization History Date of Tetanus Vaccine: pt states w/in last 10 years Date of Influenza Vaccine: 2013 Infectious Disease History: No Infectious Disease History: Denies: Hx Clostridium Difficile, Hx Hepatitis, Hx Human Immunodeficiency Virus (HIV), Hx of Known/Suspected MRSA, Hx Shingles, Hx Tuberculosis, Hx Known/ Suspected VRE, Hx Known/Suspected VRSA, History Other Infectious Disease, Traveled Outside the [place] in Last 30 Days - Family History Known Family History: Positive: Hypertension, Other - Cancer in father. Mother has Alzheimers - Social History Alcohol Use: None Alcohol Amount: took a shot of vodka tonight Hx Substance Use: Yes Substance Use Type: Reports: Marijuana Substance Use Comment - Amount & Last Used: now vicodin and percocet Hx Tobacco Use: Yes Smoking Status (MU): Heavy Every Day Tobacco Smoker Amount Used/How Often: 1/2 ppd Length of Time of Smoking/Using Tobacco: 25 years Have You Smoked in the Last Year: Yes Review of Systems Positive: Fever, Fatigue, Skin Diaphoresis Positive: Shortness Of Breath Gastrointestinal: Other - POSITIVE - HEMATEMESIS Positive: Abdominal Pain, Vomiting, Diarrhea Skin: Other - POSITIVE - LEFT SCHULTZ BURN Neurological: Other - REPORTS "DIFFICULTY COMMUNICATING" Psychological: Other - REPORTS "STRUGGLING WITH BASIC SANITY", PESSIMISTIC Positive: Depressed All Other Systems Reviewed And Are Negative: Yes Physical Exam - Summary Physical Exam Summary: VITAL SIGNS: Reviewed. GENERAL: Patient is a well-developed and nourished male who is lying comfortable in the stretcher. Patient is not in any acute respiratory distress. HEAD AND FACE: No signs of trauma. No ecchymosis, hematomas or skull depressions. No sinus tenderness. EYES: PERRLA, EOMI x 2, No injected conjunctiva, no nystagmus. EARS: Hearing grossly intact. Ear canals and tympanic membranes are within normal limits. MOUTH: Oropharynx within normal limits. NECK: Supple, trachea is midline, no adenopathy, no JVD, no carotid bruit, no c- spine tenderness, neck with full ROM. CHEST: Symmetric, no tenderness at palpation LUNGS: Bilateral expiratory wheezes. Rales over left lung base. No crackles. CVS: Regular rate and rhythm, S1 and S2 present, no murmurs or gallops appreciated. ABDOMEN: Soft, non-tender. No signs of distention. No rebound no guarding, and no masses palpated. Bowel sounds are normal. EXTREMITIES: FROM in all major joints, no edema, no cyanosis or clubbing. NEURO: Alert and oriented x 3. No acute neurological deficits. Speech is normal and follows commands. SKIN: Dry and warm Triage Information Reviewed: Yes Vital Signs On Initial Exam: Initial Vitals Temp Pulse Resp BP Pulse Ox 97.8 F 82 16 144/86 88 12/30/18 03:11 12/30/18 03:11 12/30/18 03:11 12/30/18 03:11 12/30/18 03:11 Vital Signs Reviewed: Yes Diagnostics - Vital Signs Vital Signs Temp Pulse Resp BP Pulse Ox 12/30/18 03:11 97.8 F 82 16 144/86 88 - Laboratory Result Diagrams: 12/30/18 03:54 12/30/18 03:54 Lab Statement: Any lab studies that have been ordered have been reviewed, and results considered in the medical decision making process. - Radiology CXR Radiology Interpretation Completed By: ED Physician Summary of Radiographic Findings: CXR - left lower lung infiltrate, pending official report. Re-Evaluation - Re-Evaluation First Eval Re-Evaluation Time: 04:00 Comment: Results of labs and tests were discussed, possibility of admission was discussed. Patient is intially resistant to admission, patient will think about admission. Second Eval Re-Evaluation Time: 05:07 Comment: Patient is agreeable with admission at this time, hospitalist to be contacted. Complex Multi-Symp Course/Dx Course Of Treatment: Patient is a 48 y/o M presenting to ED via ambulance with complaints of general malaise. Patient had been diagnosed with viral syndrome a few days ago and has been to [facility] on three separate previous occasions since. In the room, the patient claims that he is "deathly ill". He states that he has been vomiting for the past five days, every hour. Patient claims that he has been experiencing episodes of hematemesis as well. He reports subjective fever and diaphoresis earlier, patient took Tylenol earlier which provided relief in Sx. He also claims to be fatigued and to be experiencing "severe" abdominal pain , "fiery" diarrhea, SOB, and "difficulty communicating". Patient also notes that he has a burn on his left schultz from space heater. Patient states to have been, "struggling with my basic sanity", stating that he has been pessimistic and depressed as a result of his Sx. He also claims that Sx have worsened since he has come to ED. Patient is on zyprexa, klonipin, adderall, naproxen. 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 On triage, pain is rated 10/ 10. Nothing is noted to aggravate/alleviate Sx. Patient reports smoking a pack of cigarettes daily. Patient claims to have started smoking in 1980s. Home medications and allergies are reviewed. On physical exam, bilateral expiratory wheezes, rales over left lung base are noted. CXR showed left lower lobe infiltrate, pending official report. During ED course, patient received fluids , Reglan 10 mg IV, Toradol 15 mg IV, Duoneb 1 neb, Peptic relief 524 mg PO, Tylenol 975 mg PO, Levaquin 760 mg IVpremix 750 mg in 150 mls @ 100 mls/hr, albuterol 2.5 mg INH Q20M FUENTES. Labs showed WBC 13.1, RBC 3.31, Hgb 10.9, Hct 33, MCV 100, MCH 33, RDW 16, absolute neuts 9.6, glucose 106, lactic acid 1.2, CRP 7.95, total protein 6.2, lipase 29, amylase 32. Results of labs and tests were discussed with patient, he will be admitted to hospitalist. Patient's case was discussed with Dr. Moore, Dr. Moore accepts the patient for admission. - Diagnoses Provider Diagnoses: PNA (pneumonia) - Physician Notifications Discussed Care Of Patient With: Kadi Moore Time Discussed With Above Provider: 05:14 Instructed by Provider To: Other - Patient's case was discussed with Dr. Moore at 0514, Dr. Moore accepts for admssion. Discharge - Sign-Out/Discharge Documenting (check all that apply): Patient Departure - admit Patient Received Moderate/Deep Sedation with Procedure: No - Discharge Plan Condition: Good Disposition: ADMITTED TO [facility] Referrals: Prasad Shah MD [Primary Care Provider] - - Attestation Statements Document Initiated by Scribe: Yes Documenting Scribe: ALIX BELTRAN Provider For Whom Scribe is Documenting (Include Credential): JOANNA MARTIN MD Scribe Attestation: IALIX, scribed for JOANNA MARTIN MD on 12/30/18 at 0521. Status of Scribe Document: Ready
[2018-12-30 04:09] LABS: ABS Basophils 0 10^3/ul (0-0.2); ABS Eosinophils 0 10^3/ul (0-0.6); ABS Lymphocytes 2.6 10^3/ul (1.0-4.8); ABS Monocytes 0.8 10^3/ul (0-0.8); ABS Neutrophils 9.6 10^3/ul (1.5-7.7); ABS Nucleated RBC 0 10^3/ul; Eosinophil % 0 %; Hematocrit 33 % (36-46); Hemoglobin 10.9 g/dL (14.0-18.0); Lymphocyte % 20.1 %; Mean Corpuscular HGB Conc 33 g/dL (31-36); Mean Corpuscular Hemoglobin 33 pg (27-31); Mean Corpuscular Volume 100 fL (80-94); Mean Platelet Volume 8.3 fL (7.4-10.4); Nucleated Red Blood Cells % 0; Platelet Count 232 10^3/uL (150-450); Red Blood Count 3.31 10^6 /uL (4.18-5.48); Red Cell Distribution Width 16 % (10.5-15); White Blood Count 13.1 10^3/uL (3.5-10.8)
[2018-12-30] MEDS ORDERED: Levofloxacin 750 MG IVPREMIX(* 750 MG/150 ML BAG IVPB ONE (04:11)
[2018-12-30 04:20] LABS: Albumin 4.2 g/dL (3.2-5.2); Albumin/Globulin Ratio 2.1 (1-3); BUN/Creatinine Ratio 10.9 (8-20); C Reactive Protein 7.95 mg/L (<8.01); Calcium 8.7 mg/dL (8.6-10.3); EGFR African American 95.8 (>60); EGFR Non-African American 79.2 (>60); Magnesium 2.1 mg/dL (1.9-2.7); Potassium 3.6 mmol/L (3.5-5.0); Total Bilirubin 0.3 mg/dL (0.2-1.0); Total Protein 6.2 g/dL (6.4-8.9)
[2018-12-30] MEDS ORDERED: Bismuth Subsalicylate* 524 MG/30 ML BTL PO ONE (04:26)
[2018-12-30] MEDS: Albuterol 2.5 MG/3 ML NEB.SOL* (0.083%) INH SCH ×2 (04:50→05:22)
[2018-12-30] MEDS ORDERED: clonazePAM TAB(*) 0.5 MG PO ONE (06:23)
[2018-12-30] MEDS ORDERED: Albuterol HFA INHALER* 8 gm MDI INH PRN (08:49)
[2018-12-30] MEDS ORDERED: Bismuth Subsalicylate* 524 MG/30 ML BTL PO PRN (08:51)
[2018-12-30] MEDS ORDERED: Ondansetron INJ* 2 MG/ML VIAL IV PRN (08:54)
[2018-12-30] MEDS ORDERED: OLANzapine TAB*ODT* 10 MG TAB PO SCH (09:00)
[2018-12-30] MEDS ORDERED: Albuterol/Ipratropium NEB.SOL* Albuterol 2.5 MG/Ipratropium 0.5 MG 3 ML INH PRN (09:09)
[2018-12-30] MEDS: Gabapentin CAP(*) 300 MG PO SCH ×3 (11:15→21:35)
[2018-12-30] MEDS: Azithromycin TAB* 250 MG PO SCH (11:15)
[2018-12-30] MEDS: Acetaminophen TAB* 325 MG PO SCH ×4 (11:15→21:28)
[2018-12-30] MEDS: cefTRIAXone VIAL(*) 1,000 MG in NS 0.9% 50 ML* 50 ML IVPB SCH (11:16)
[2018-12-30] MEDS: Nicotine PATCH 14 MG/24 HR* PATCH TRANSDERM SCH (11:16)
[2018-12-30] MEDS: predniSONE TAB* 50 MG PO SCH (11:16)
[2018-12-30] MEDS: Enoxaparin(*) 40 MG/0.4 ML SYR SUBCUT SCH (11:16)
[2018-12-30] MEDS: clonazePAM TAB(*) 1 MG PO PRN ×2 (11:21→22:25)
[2018-12-30] MEDS: HYDROcodone/ACETAMIN 5-325 MG* 1 TAB PO PRN ×3 (11:21→22:25)
[2018-12-30] MEDS: Amphetamine MIXED SALT TAB* 10 MG TAB PO SCH ×3 (13:57→17:23)
[2018-12-30] MEDS: OLANzapine TAB*ODT* 10 MG TAB PO SCH ×2 (17:23→21:35)
--- NOTE | 2018-12-30 21:07 | HP ---
CC: Prasad Shah MD HISTORY AND PHYSICAL: DATE OF ADMISSION: 12/30/18 PRIMARY CARE PHYSICIAN: Prasad Shah M.D. HEALTHCARE PROXY: The patient declines to list a healthcare proxy. CODE STATUS: Full code. CHIEF COMPLAINT: Four days of shortness of breath, nausea, vomiting, fatigue, and night sweats. HISTORY OF PRESENT ILLNESS: Mr. Palacios is a 48-year-old man with a history of personality disorder, NOS with hospitalizations for psychosis, fibromyalgia on opioids, migraines, ADHD, and asthma, who is presenting with several days of nausea and NBNB vomiting associated with shortness of breath, wheeze, productive cough, and fatigue. He also reports subjective fevers at home associated with night sweats and chills. He reports that the 6 people he lives with all contracted flu-like symptoms, and all got better within a couple of days, while he had the same symptoms that just continued to progress. For the last 3 days, he has come to the emergency room every day over concern for his symptoms. For one of these emergency room visits, he was started on a prednisone burst, which he reports mildly helped his symptoms. He reports that Tylenol provided mild relief in some of his symptoms as well. He denies chest pain, hemoptysis, diarrhea, LE edema, orthopnea. Otherwise 10-point ROS negative. In the emergency room, he was found with bilateral expiratory wheezes and rales of her left lung base with chest x-ray showing left lower lobe infiltrate, so he was given fluids, Reglan, Toradol, nebulizers, and Pepto-Bismol, and was started on Levaquin for community-acquired pneumonia. The patient reports improvement in his symptoms since starting nebs and using supplemental oxygen. PAST MEDICAL HISTORY: 1. Strong cluster B traits, personality disorder, not otherwise specified, complicated by multiple psychiatric hospitalizations. 2. Psychosis. The patient reports schizophrenia, although this is a questionable diagnosis per prior documentation. 3. Chronic pain. The patient reports fibromyalgia for which he takes opiates. 4. Migraines. 5. ADHD. 6. Asthma, although the patient has significant smoking history, may have component of COPD. 7. History of alcohol use disorder. 8. Stimulant and benzo dependence. HOME MEDICATIONS: 1. Zyprexa 10 mg p.o. twice a day. 2. Clonazepam 1 mg p.o. t.i.d. p.r.n. anxiety. 3. Gabapentin 600 mg 1 tab t.i.d. 4. Adderall 20 mg p.o. t.i.d. 5. Sumatriptan 50 mg p.o. p.r.n. migraine. 6. Ondansetron 4 mg tab p.o. q.6 p.r.n. nausea. 7. Hydrocodone and acetaminophen 5/325 one tab p.o. q.4 hours p.r.n. pain. 8. Cyclobenzaprine 10 mg p.o. at bedtime. 9. Fioricet 1 tab p.r.n. migraine. 10. Albuterol 2 puffs inhaled q.6 hours p.r.n. wheeze. 11. Sildenafil 25 mg as needed for erectile dysfunction. I-STOP verified hydrocodone/acetaminophen prescribed by Kurt Bernstein this month, clonazepam, hydrocodone and acetaminophen prescribed by Prasad Shah, and dextroamphetamine prescribed last month by Mayi Phipps. ALLERGIES: PENICILLIN and SHELLFISH cause throat to close up. FAMILY HISTORY: Father with oral cancer from chewing tobacco. Mother passed from Alzheimers disease. SOCIAL HISTORY: Lives with a friend, his friend's sister, and her 4 kids. Smokes 1 pack of cigarettes per day for decades. Drinks 2 beers per day. Uses marijuana. Denies other illicits. 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 PHYSICAL EXAMINATION GENERAL: Anxious man, nontoxic, and not in acute distress. VITAL SIGNS: Temperature 98.4, pulse rate 70s, blood pressure 109/57, respiratory rate 18, SaO2 of 92% on 3 L. HEENT: Moist mucous membranes. OP clear. NECK: No JVD. LUNGS: Clear to auscultation bilaterally. HEART: Regular rate and rhythm. No murmurs, gallops or rubs. ABDOMEN: Soft, nontender, nondistended. EXTREMITIES: Warn and well perfused. No lower extremity edema. PSYCH: The patient with somewhat pressured speech and difficult to interrupt. Has some delusions of grandeur and expresses some paranoia. DIAGNOSTIC STUDIES/LAB DATA: Labs reviewed and significant for WBC elevated to 13.1, hemoglobin decreased to 10.9 macrocytic, platelets normal. BMP/LFT reviewed and normal. Flu swab on ER presentation 2 days ago was negative. Chest x-ray; patchy consolidation of the left mid lung field. Recommended followup until resolution to exclude underlying pulmonary parenchymal pathology. ASSESSMENT AND PLAN: A 48-year-old male with a history of personality disorder , possible psychotic disorder, chronic pain, opiates, benzo, and stimulants use , who is presenting with nausea, vomiting, shortness of breath, fatigue, and sweats after multiple sick contacts for viral illness found with leukocytosis and chest x-ray concerning for pneumonia, now admitted for IV antibiotics and supplemental oxygen given hypoxia on presentation. 1. Pneumonia complicated by sepsis, with leukocytosis and tachypnea. Will not continue Levaquin started the ER and switch the patient to ceftriaxone, azithromycin. The patient may have element of chronic obstructive pulmonary disease given significant smoking history, so will continue on short prednisone burst with nebs p.r.n. Follow up blood cultures and urine Legionella and streptococcal antigens. Wean O2 as tolerated. Will need repeat CXR to follow up prior findings. Nausea and vomiting thought to be from post-tussive emesis. 2. Anxiety. Continue home clonazepam 1 mg p.o. t.i.d. p.r.n. 3. Attention deficit hyperactivity disorder. Continue amphetamine 20 mg p.o. t.i.d. I-STOP confirmed. 4. Chronic pain. Continue cyclobenzaprine 10 mg p.o. at bedtime for muscle spasm, gabapentin 600 mg t.i.d., hydrocodone and acetaminophen 1 tab p.o. q.4 p.r.n. pain. I-STOP verified. 5. History of psychotic disorder, not otherwise specified. The patient reports schizophrenia. Continue home olanzapine 10 mg p.o. b.i.d. 6. Active tobacco. Order nicotine replacement therapy and encourage cessation. 7. DVT prophylaxis. Continue Lovenox 40 mg subcu daily. 8. The patient is full code. TIME SPENT: Approximately 60 minutes were spent on admission of this patient, more than half of which was spent at bedside for interview and physical exam. [id number]/[facility] #: [id number] [facility]
[2018-12-30] MEDS: Cyclobenzaprine TAB* 10 MG PO SCH (21:35)
[2018-12-30] MEDS: Nicotine Patch Removal NOTE FOLLOW UP SCH (21:49)
[2018-12-30] MEDS: Melatonin 3 MG TAB PO PRN (22:26)
[2018-12-30] MEDS ORDERED: traZODone TAB* 100 MG PO PRN (22:57)
[2018-12-31] MEDS: Acetaminophen TAB* 325 MG PO SCH ×6 (00:38→20:24)
[2018-12-31] MEDS: Amphetamine MIXED SALT TAB* 10 MG TAB PO SCH ×4 (09:50→18:05)
[2018-12-31] MEDS: Azithromycin TAB* 250 MG PO SCH (09:50)
[2018-12-31] MEDS: Gabapentin CAP(*) 300 MG PO SCH ×3 (09:51→20:24)
[2018-12-31] MEDS: predniSONE TAB* 50 MG PO SCH (09:53)
[2018-12-31] MEDS: Enoxaparin(*) 40 MG/0.4 ML SYR SUBCUT SCH (09:55)
[2018-12-31] MEDS: cefTRIAXone VIAL(*) 1,000 MG in NS 0.9% 50 ML* 50 ML IVPB SCH (09:57)
[2018-12-31] MEDS: Nicotine PATCH 14 MG/24 HR* PATCH TRANSDERM SCH (10:04)
[2018-12-31 11:21] LABS: Urine Appearance Clear; Urine Bilirubin Negative (Negative); Urine Blood Negative (Negative); Urine Color Yellow; Urine Glucose Negative (Negative); Urine Ketones Negative (Negative); Urine Nitrite Negative (Negative); Urine Protein Negative (Negative); Urine Specific Gravity 1.016 (1.010-1.030); Urine Urobilinogen Negative (Negative)
[2018-12-31] MEDS: HYDROcodone/ACETAMIN 5-325 MG* 1 TAB PO PRN ×2 (11:23→20:29)
[2018-12-31 13:40] LABS: Hematocrit 39 % (36-46); Hemoglobin 12.9 g/dL (14.0-18.0); Mean Corpuscular HGB Conc 33 g/dL (31-36); Mean Corpuscular Hemoglobin 33 pg (27-31); Mean Corpuscular Volume 100 fL (80-94); Platelet Count 252 10^3/uL (150-450); Red Blood Count 3.87 10^6 /uL (4.18-5.48); Red Cell Distribution Width 16 % (10.5-15); White Blood Count 10.8 10^3/uL (3.5-10.8)
[2018-12-31 13:49] LABS: Albumin 4.1 g/dL (3.2-5.2); Calcium 8.7 mg/dL (8.6-10.3); Magnesium 2.1 mg/dL (1.9-2.7); Total Bilirubin 0.3 mg/dL (0.2-1.0)
[2018-12-31] MEDS: clonazePAM TAB(*) 1 MG PO PRN ×2 (13:54→20:27)
[2018-12-31 13:55] LABS: Albumin/Globulin Ratio 1.8 (1-3); BUN/Creatinine Ratio 13.4 (8-20); EGFR Non-African American 70.3 (>60); Globulin 2.3 g/dL (2-4); Total Protein 6.4 g/dL (6.4-8.9)
[2018-12-31 14:26] LABS: ABS Basophils 0.1 10^3/ul (0-0.2); ABS Eosinophils 0 10^3/ul (0-0.6); ABS Lymphocytes 1.5 10^3/ul (1.0-4.8); ABS Monocytes 0.4 10^3/ul (0-0.8); ABS Neutrophils 8.9 10^3/ul (1.5-7.7); ABS Nucleated RBC 0 10^3/ul; Eosinophil % 0.1 %; Lymphocyte % 13.7 %; Nucleated Red Blood Cells % 0.1
[2018-12-31 14:43] LABS: Potassium 4.5 mmol/L (3.5-5.0)
--- NOTE | 2018-12-31 15:48 | CONSULT ---
Consult Consult: Consult for Paranoia and Grandiose features CC " I am sick" The patient has history of a history of schizophrenia and ADHD. He reports being in the hospital for Pneumonia. Hospital team has noticed manic features of his presentation such as thinking that a fly on the wall is a drone and that he is a physician. He reported taking adderall 20mg TID from his doctor in [facility]. He denied access to firearms or stockpiles of medications. He reported being sick the last week with nausea and vomiting, fever. The patient denied suicidal and or homicidal ideation intent or plan. The patient denied auditory and/ or visual hallucinations. Bipolar Has symptoms of alanis such as having many ideas at once. Denied increased talkativeness where no one can interrupt. Denied feeling irritable most of the time while having an persistent abundance of energy most of the day without the use of energy drinks, stimulants, or recreational drug use. Has an increase in intensity in goal directed activities. Has having the decreased need to sleep for days , having prolonged elevated heighted mood , or feeling on top of the world. Denied impulsive risky sexual encounters. Denied spending money recklessly , going on spending sprees wiping out savings. Denied impulsively traveling out of town or country, having super crowe, and unrealistic wealth or fame. MDD Denied feeling depressed or having diminished interest in hobbies or interests which were present in the past , for most of the time, lasting more than 2 weeks. Denied having crying spells , feeling empty inside, feelings of hopelessness or worthless. Denied unintentional weight loss or appetite . Denied interruption of sleep or feeling tired throughout the day. Denied loss of energy or lack of motivation to complete tasks. Denied overwhelming feelings of guilt , or decreased concentration. Denied recurrent thoughts of . Denied feeling no purpose in life or would be better off . Anxiety Denied having symptoms of anxiety such as having times where heart feels that it is beating out of chest , sweaty palms, or shallow breathing. Denied having uncomfortable or intrusive thoughts. Denied feeling restless, high strung, or worrying too much most of the time. Psychosis Does not endorse hearing things that other people do not hear or seeing things other people do not see. Denied feeling that TV is making references. Denied feeling that people are spying , following , or reading their thoughts. Phobias: Patient denied having excessive fear of a particular thing or situation. Eating disorders: Patient denied having excessive eating habits or feelings of guilt after eating. Denied repeated episodes of self induced vomiting after eating. PTSD Denied flashbacks, nightmares and avoidance of a prior traumatic event. PAST PSYCHIATRIC HISTORY: Prior Diagnosis :Schizophrenia, ADHD History of past Psychiatric Hospitalizations: 3 prior psychiatric admission. History of past suicide/homicide attempts : Denied past suicide attempts. Denied past homicidal incidents. Outpatient follow-up: [place] with [facility] and [facility] Medications: Past trials of medications include zyprexa 10mg BID zydis FAMILY HISTORY: - Suicide: Brother ended life by suicide. - Mental illness: Denied a history of mental health in immediate family members. - Substance abuse: Mother and father had poly substance abuse SUBSTANCE ABUSE HISTORY: - EtOH: drinks 1-2 spiked tonic drinks per day - Tobacco: 1ppd for last 37 years - Cannabis: Uses socially - Heroin: Reported using the in past no recent use - Cocaine: Reported using the in past no recent use SOCIAL HISTORY: - Childhood: Grew up in [place] and is homeless. Both of his parents are no longer living. He has no children. Current has a significant other who is a male. PAST MEDICAL HISTORY: Recent Pneumonia. Fibromyalgia - Allergies: Penicillin, shellfish Mental Status Exam on Admission APPEARANCE : 48 year old who appears stated age with sprase black hair. Patient is malodourous, and appears to have poor hygiene and grooming. BEHAVIOR: Cooperative , calm EYE CONTACT: Fair PSYCHOMOTOR ACTIVITY: No psychomotor agitation or retardation. MOVEMENTS: No abnormal movements observed. SPEECH : Normal rate, rhythm, volume and tone. MOOD : "I am good " AFFECT : Elevated THOUGHT PROCESS: formulated and organized in a logical, linear goal directed manner. Some flight of ideas. THOUGHT CONTENT: No preoccupations, obsessions, phobias or preoccupations. PERCEPTION: No current auditory or visual hallucinations. Doesnt appear to be responding to internal cues. No evidence of depersonalization , de-realization, or illusions SUICIDALITY Denied suicidal ideation, intent or plan. HOMICIDALITY Denied homicidal ideation, intent or plan. Insight/judgment: Fair insight and judgment ORIENTATION: Oriented to self, location, and time. Diagnosis Schizoaffective Disorder, unspecified personality disorder Assessment: 48 year old with history of Schizophrenia and ADHD came to the hospital for treatment of Pneumonia. Plan #Patient doesnt require inpatient psychiatric admission at this time #Emerging Psychotic features likely from stimulant use and or lack of medication absorption from recent emesis # Increase Zyprexa zydis to 15mg BID, patient refusing to take additional medications offered. # Do not continue adderall as it can cause paranoia and psychotic features. Alternative treatment include strattera 40mg daily # Psychiatry will continue to follow patient #Recommendations communicated to consulting Physician. The risks, benefits, and alternative treatment options were discussed as well as of the risks of refusing treatment. After this discussion and an acknowledgement of this understanding was made. A risk/ benefit assessment of treatment was considered and discussed with the patient. When comparing the risks of treatment with the dangers of not receiving treatment, the benefits of treatment outweigh the treatment risks at this time. Risks of suicidal ideation , behavioral changes, dystonia, movement disorders, cardiac conduction changes , metabolic risks and NMS were among some of the risks discussed.
[2018-12-31] MEDS: OLANzapine TAB*ODT* 10 MG TAB PO SCH ×2 (16:22→20:25)
--- NOTE | 2018-12-31 20:08 | PN ---
Subjective Date of Service: 12/31/18 Interval History: Pt seen and examined. Meds and labs reviewed. 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 He also has expressed that he thinks that the fly on the wall he saw was a spy drone. Please see discussion below. CC: N/A ROS: Denied JAFFE/dizziness, F/C, N/V, CP, SOB, increased cough, sputum production , abd pain, diarrhea, constipation, dysuria, myalgias, arthralgias, throat pain , and new skin lesions. The rest of the 14 point ROS are unremarkable. PHYSICAL EXAM: GEN APPEARANCE: Awake, not in acute distress HEENT: NC/AT, PERRLA, moist oral mucosa, (-) throat erythema NECK: Soft, supple, (-) cervical LAD, (-)JVD HEART: S1S2 WNL, RRR, No MRG CHEST: CTA, BL, GAE, No W/R/R ABD: Soft, ND/NT, NABS 4x Q EXT: No C/C/E SKIN: Warm to touch PSYCH: Grandiose delusions Objective Active Medications: Acetaminophen (Tylenol Tab*) 650 mg PO Q4H FUENTES Last Admin: 12/31/18 16:53 Dose: Not Given Hydrocodone Bitart/Acetaminophen (Rosholt 5-325 Tab*) 1 tab PO Q4H PRN PRN Reason: PAIN Last Admin: 12/31/18 11:23 Dose: 1 tab Albuterol/Ipratropium (Duoneb (Albuterol 2.5 Mg/Ipratropium 0.5 Mg)) 1 neb INH Q4H PRN PRN Reason: SOB/wheeze Azithromycin (Zithromax Tab*) 250 mg PO DAILY FUENTES Bismuth Subsalicylate (Peptic Relief*) 524 mg PO Q6H PRN PRN Reason: DYSPEPSIA Clonazepam (Klonopin Tab(*)) 1 mg PO TID PRN PRN Reason: . Last Admin: 12/31/18 13:54 Dose: 1 mg Cyclobenzaprine HCl (Flexeril Tab*) 10 mg PO BEDTIME FUENTES Last Admin: 12/30/18 21:35 Dose: 10 mg Enoxaparin Sodium (Lovenox(*)) 40 mg SUBCUT Q24H [facility] Last Admin: 12/31/18 09:55 Dose: 40 mg Gabapentin (Neurontin Cap(*)) 600 mg PO TID [facility] Last Admin: 12/31/18 13:53 Dose: 600 mg Ceftriaxone Sodium 1,000 mg/ (Sodium Chloride) 50 mls @ 200 mls/hr IVPB Q24H [facility] Last Admin: 12/31/18 09:57 Dose: 200 mls/hr Melatonin (Melatonin) 3 mg PO BEDTIME PRN PRN Reason: SLEEP Last Admin: 12/30/18 22:26 Dose: 3 mg Nicotine (Nicotine Patch 14 Mg/24 Hr*) 1 patch TRANSDERM DAILY [facility] Last Admin: 12/31/18 10:04 Dose: 1 patch Olanzapine (Zyprexa *Odt*) 15 mg PO 1800,2200 [facility] Ondansetron HCl (Zofran Inj*) 4 mg IV Q6H PRN PRN Reason: NAUSEA Pharmacy Profile Note (Nicotine Patch Removal Note*) 1 note FOLLOW UP 2099 [facility] Last Admin: 12/30/18 21:49 Dose: 1 note Prednisone (Deltasone Tab*) 50 mg PO DAILY [facility] Last Admin: 12/31/18 09:53 Dose: 50 mg Trazodone HCl (Desyrel Tab*) 100 mg PO BEDTIME PRN PRN Reason: INSOMNIA Vital Signs - 8 hr 12/31/18 12/31/18 12/31/18 12:26 13:53 13:54 Temperature Pulse Rate Respiratory 18 18 Rate Blood Pressure (mmHg) O2 Sat by Pulse 92 Oximetry 12/31/18 12/31/18 12/31/18 14:41 15:37 16:53 Temperature 99.6 F Pulse Rate 97 Respiratory 18 20 18 Rate Blood Pressure 147/96 (mmHg) O2 Sat by Pulse 93 Oximetry 12/31/18 16:54 Temperature Pulse Rate Respiratory 18 Rate Blood Pressure (mmHg) O2 Sat by Pulse Oximetry Oxygen Devices in Use Now: None Result Diagrams: 12/31/18 13:32 12/31/18 13:32 Microbiology and Other Data: Microbiology 12/31/18 11:10 Legionella Urinary Antigen - Final Urine Negative Legionella Antigen Streptococcus pneumoniae Ag Screen - Final Negative S. pneumo Antigen 12/30/18 03:54 Aerobic Blood Culture - Preliminary Blood Venous No Growth Day 1 Anaerobic Blood Culture - Preliminary No Growth Day 1 12/30/18 03:54 Aerobic Blood Culture - Preliminary Blood Venous No Growth Day 1 Anaerobic Blood Culture - Preliminary No Growth Day 1 Assess/Plan/Problems-Billing Assessment: - Patient Problems (1) Schizoaffective disorder Current Visit: Yes Status: Acute Code(s): F25.9 - SCHIZOAFFECTIVE DISORDER, UNSPECIFIED SNOMED Code(s): 53932702 Comment: -With unspecified PD -Appreciate Dr. Ly input; increased Zyprexa to 15 mg PO BID, D/Cd Adderal as it can cause paranoia and psychotic features -Strattera non-formulary and will defer with Psych on re-eval (2) Sepsis due to pneumonia Current Visit: Yes Status: Acute Code(s): J18.9 - PNEUMONIA, UNSPECIFIED ORGANISM; A41.9 - SEPSIS, UNSPECIFIED ORGANISM SNOMED Code(s): 65806459 Comment: -Sepsis resolved -Continue Rocephin and Azithromycin but will decrease dose of Azithro to 250 daily after 1st dose -Urine Ag (-): Legionella and S. pneumoniae -Blood Cx (-) x 1 day (3) Anxiety Current Visit: Yes Status: Acute Code(s): F41.9 - ANXIETY DISORDER, UNSPECIFIED SNOMED Code(s): 85380614 Comment: -Continue Clonazepam (4) ADHD Current Visit: Yes Status: Acute Comment: -Please see above discussion (5) DVT prophylaxis Current Visit: Yes Status: Acute Code(s): ICY9303 - SNOMED Code(s): 666699204 Comment: -Continue Lovenox Status and Disposition: -As above
[2018-12-31] MEDS: Cyclobenzaprine TAB* 10 MG PO SCH (20:27)
[2018-12-31] MEDS: Nicotine Patch Removal NOTE FOLLOW UP SCH (20:45)
[2018-12-31] MEDS ORDERED: OLANzapine TAB*ODT* 5 MG PO SCH (22:00)
[2018-12-31] MEDS ORDERED: OLANzapine TAB*ODT* 10 MG TAB PO SCH (22:00)
[2019-01-01] MEDS: clonazePAM TAB(*) 1 MG PO PRN ×2 (00:23→09:13)
[2019-01-01] MEDS: HYDROcodone/ACETAMIN 5-325 MG* 1 TAB PO PRN ×3 (00:23→11:04)
[2019-01-01] MEDS: Acetaminophen TAB* 325 MG PO SCH ×3 (00:27→09:22)
[2019-01-01] MEDS: Melatonin 3 MG TAB PO PRN (03:04)
[2019-01-01 08:06] VITALS: BP 112/77
[2019-01-01 08:36] LABS: ABS Basophils 0 10^3/ul (0-0.2); ABS Eosinophils 0.1 10^3/ul (0-0.6); ABS Lymphocytes 3.8 10^3/ul (1.0-4.8); ABS Monocytes 0.7 10^3/ul (0-0.8); ABS Neutrophils 3.8 10^3/ul (1.5-7.7); ABS Nucleated RBC 0 10^3/ul; Eosinophil % 0.6 %; Hematocrit 36 % (36-46); Lymphocyte % 45.3 %; Mean Corpuscular HGB Conc 34 g/dL (31-36); Mean Corpuscular Hemoglobin 34 pg (27-31); Mean Corpuscular Volume 100 fL (80-94); Nucleated Red Blood Cells % 0.2; Platelet Count 223 10^3/uL (150-450); Red Blood Count 3.57 10^6 /uL (4.18-5.48); Red Cell Distribution Width 16 % (10.5-15); White Blood Count 8.4 10^3/uL (3.5-10.8)
[2019-01-01] MEDS ORDERED: Azithromycin TAB* 250 MG PO SCH (09:00)
[2019-01-01 09:04] LABS: Albumin 3.8 g/dL (3.2-5.2); BUN/Creatinine Ratio 16.1 (8-20); Calcium 8.5 mg/dL (8.6-10.3); EGFR African American 105.4 (>60); EGFR Non-African American 87.1 (>60); Globulin 1.9 g/dL (2-4); Magnesium 2.3 mg/dL (1.9-2.7); Phosphorus 4.8 mg/dL (2.5-5.0); Potassium 3.4 mmol/L (3.5-5.0); Total Bilirubin 0.5 mg/dL (0.2-1.0); Total Protein 5.7 g/dL (6.4-8.9)
[2019-01-01] MEDS: Gabapentin CAP(*) 300 MG PO SCH (09:14)
[2019-01-01] MEDS: predniSONE TAB* 50 MG PO SCH (09:15)
[2019-01-01] MEDS: Nicotine PATCH 14 MG/24 HR* PATCH TRANSDERM SCH (09:18)
[2019-01-01] MEDS: cefTRIAXone VIAL(*) 1,000 MG in NS 0.9% 50 ML* 50 ML IVPB SCH (09:18)
[2019-01-01] MEDS: Enoxaparin(*) 40 MG/0.4 ML SYR SUBCUT SCH (09:22)
[2019-01-01] MEDS ORDERED: CMCS:Atomoxetine (NF) 40 MG CAP PO SCH (10:00)
[2019-01-01] MEDS ORDERED: Potassium Chlor TAB* 20 MEQ TAB.ER PO ONE (10:15)
--- NOTE | 2019-01-01 10:52 | CONSULT ---
Consult Consult: This MD went to see Mr. Palacios for a follow up visit however he was already discharged. Per nursing staff, patient was upset about not getting adderall. Strattera Non formulary was recommended as replacement which he can get in the outpatient setting.
--- NOTE | 2019-01-01 15:56 | DS ---
CC: Prasad Shah MD * DISCHARGE SUMMARY: DATE OF ADMISSION: 12/30/18 DATE OF DISCHARGE: 01/01/19 PRIMARY CARE PROVIDER: Prasad Shah MD ATTENDING PHYSICIAN: Dr. Guido Bourgeois.* (DICTATED BY ADRIENNE SHIN ) PRIMARY DIAGNOSIS: Pneumonia complicated by sepsis. SECONDARY DIAGNOSES: 1. Cluster B personality disorder. 2. Psychosis. The patient reports history of schizophrenia, although this is questionable per prior documentation. 3. Chronic pain. The patient reports fibromyalgia for which he takes opiates. 4. Migraine. 5. Attention deficit hyperactivity disorder. 6. Asthma. 7. History of alcohol use. STUDIES WHILE IN THE HOSPITAL: 1. Chest x-ray, 12/30/18, impression: Patchy consolidation of the left mid lung field, recommended followup until resolution to exclude underlying pulmonary parenchymal pathology. 2. Chest x-ray, 12/31/18, impression: Small right middle lobe infiltrate. DISCHARGE MEDICATIONS: Home medications: 1. Olanzapine 10 mg p.o. b.i.d. 2. Clonazepam 1 mg p.o. t.i.d. p.r.n., maximum daily dose of 3. 3. Sildenafil 25 mg p.o. once. 4. Sumatriptan 50 mg p.o. once with development of migraine. 5. Ondansetron 4 mg p.o. q.6 hours p.r.n. 6. Hydrocodone/acetaminophen 5/325 one tab p.o. q.4 hours p.r.n. 7. Gabapentin 600 mg 1 tab p.o. t.i.d. 8. Cyclobenzaprine 10 mg p.o. at bedtime. 9. Fioricet 1 tab p.o. daily p.r.n. headache. 10. Amphetamine mixed salts 20 mg p.o. t.i.d. 11. Albuterol HFA inhaler 2 puff inhalation q.6 hours p.r.n. 12. Acetaminophen 500 mg p.o. q.4 hours p.r.n. New home medications: 1. Prednisone 40 mg p.o. daily x2 days. 2. Cefuroxime 500 mg p.o. b.i.d. 3. Azithromycin 250 mg p.o. daily. HISTORY OF PRESENT ILLNESS/HOSPITAL COURSE: Mr. Palacios is a 48-year-old male with an extensive psych history and history of asthma, who presented to the ER on 11/29/18 with complaints of productive cough, shortness of breath, wheezing, fatigue, nausea, and vomiting, as well as subjective fevers, night sweats, and chills. He had come to the emergency department for 3 days prior with concerns for these symptoms. He was prescribed prednisone, which he reports helped somewhat. He was admitted after having found bilateral wheezing and rales of the left lung base with chest x-ray revealing left lower lobe infiltrates. The patient was given a dose of Levaquin and then transitioned to ceftriaxone and azithromycin, which he continued throughout his stay. Due to wheezing, he was continued on prednisone. His home medications were continued as ordered. He was found to be negative for legionella and Strep pneumo antigens. Blood cultures were obtained and they were found to be negative on day 2. Due to reports of manic features, Psych consult was ordered. The recommendation was that the patient did not require inpatient admission. It is recommended that his Zyprexa be increased to 15 b.i.d. and that his Adderall be discontinued and replaced with Strattera 40. At this recommendation, the patient became very upset and requested to be discharged from the hospital. He states that he has been on his psych medications for many years and he does not wish to change them at this point. He will follow up with his psychiatrist as an outpatient. At the time of discharge, the patient denies chest pain, shortness of breath. He has been weaned off his oxygen. He denies cough, nausea, vomiting. He denies fevers and chills. He states he is breathing better and does not feel that he has a wheeze any longer. Mr. Palacios is stable for discharge at this time. Vital signs are 98.1 oral, heart rate 61, respiratory rate 20, oxygen saturation 91% on room air, blood pressure 112/77. The patient was admitted with pneumonia complicated by sepsis, having had leukocytosis and tachypnea and the patient denies suicidal and homicidal ideations. PHYSICAL EXAMINATION: General: Mr. Palacios is a well-developed, well-nourished , middle-aged man. He appears to be in no acute distress. He appears agitated , but is able to have a pointed conversation. HEENT: Visual hay are grossly intact. The pupils are equally round and reactive to light. Extraocular movements are intact. Sclerae are without icterus. Hearing is grossly intact. Oral mucous membranes are moist. Pharynx is clear. Neck with full range of motion and no lymphadenopathy. Cardiovascular: Regular rate and rhythm. S1, S2 present. No murmurs, rubs, or gallops. No JVD. Respiratory: Symmetrical chest expansion with no use of accessory muscles. There are faint crackles in the left lower lung field. There are no rhonchi, wheezes, or rubs. Abdomen: Bowel sounds are normoactive. The abdomen is soft and nontender to palpation. There is no hepatosplenomegaly. Musculoskeletal: Full range of motion with no pain or deformities. Extremities: Skin is warm and smooth bilaterally. There is no clubbing, cyanosis, or edema. Radial and pedal pulses are palpable. Neuro: The patient is awake. He is alert and oriented x3. He is able to move all of his extremities. He has a steady gait with no impairment. He understands the plan. DISCHARGE PLAN: Mr. Palacios will be discharged to home. ACTIVITY: As tolerated. DIET: Regular. MEDICATIONS: As above. EDUCATION: 1. Follow up with primary care provider in 4 to 7 days. Consider PFTs to assess for possibility of COPD. 2. Follow up with psychiatrist in 4 to 7 days. Inpatient Psychiatry recommends discontinuing Adderall in favor of Strattera 40 and increasing Zyprexa. 3. Continue prednisone starting tomorrow x2 days. 4. Continue azithromycin for 2 days, next dose is tomorrow. 5. Start cefuroxime tomorrow, take as directed and continue until prescription is finished. 6. Return to the ER or nearest hospital if you experience any worsening of symptoms, shortness of breath, lightheadedness, dizziness, chest discomfort, high fevers, chills, night sweats, loss of consciousness, or any other worrisome signs or symptoms. This is a summarized report of a complex medical history and hospital stay. For further details, please see the entire medical record. TIME SPENT: Approximately 35 minutes was spent on this discharge; greater than half of that time was spent [id number] with the patient discussing discharge plans and instructions. LESLIE MCGEE, ADRIENNE [id number]/[facility] #: [id number] LORI
== END 2019-01-01 11:20 | disposition home or self-care (01) | DRG 871 ==
LOC: ED 03:07 → MED 08:44
PROVIDERS: ADMIT Internal Medicine; ATTEND Internal Medicine
DX: A41.9 Sepsis, unspecified organism (principal); J18.9 Pneumonia, unspecified organism; F17.210 Nicotine dependence, cigarettes, uncomplicated; J45.909 Unspecified asthma, uncomplicated; M79.7 Fibromyalgia; G43.909 Migraine, unspecified, not intractable, without status migrainosus; F41.9 Anxiety disorder, unspecified; F60.9 Personality disorder, unspecified; G89.29 Other chronic pain; F25.9 Schizoaffective disorder, unspecified; F90.9 Attention-deficit hyperactivity disorder, unspecified type; F32.9 Major depressive disorder, single episode, unspecified; Z82.49 Family history of ischemic heart disease and other diseases of the circulatory system; Z82.0 Family history of epilepsy and other diseases of the nervous system; Z88.0 Allergy status to penicillin; Z91.013 Allergy to seafood; Z72.89 Other problems related to lifestyle
CPT/HCPCS: 36415; 71045; 71046; 80053; 81003; 82150; 83605; 83690; 83735; 84100; 85025; 86140; 87040; 87899; 99284; A9270-GY; J0696; J1650; J1885; J2765; J7512

== ENCOUNTER 2019-02-28 23:38 | Emergency (ER) | payer MEDICARE ==
[2019-02-28 23:44] VITALS: BP 136/81
--- NOTE | 2019-02-28 23:56 | ED ---
Shortness of Breath - HPI Summary HPI Summary: This patient is a 48 year old male presenting to [facility] with a chief complaint of shortness of breath since 2 days ago. He states he has difficulty breathing, all over body pain, and migraines. Pt states he has been diagnosed with pneumonia and taking Rocephin from his primary care provider. He states his symptoms have been going on for three years. He says that he was recently admitted here and nurses and doctors wanted to play games with his medications by withholding certain medications. This patient is well known to the provider and is known to argue with both the provider and ED staff every time he visits the emergency room. Gabapentin TAB(NF) [Neurontin 600 mg TAB(NF)] 1 tab PO TID 12/18/16 [History Confirmed 02/28/19] Albuterol HFA INHALER* [Ventolin HFA Inhaler*] 2 puff INH Q6H PRN #1 mdi [Rx Confirmed 02/28/19] Amphetamine MIXED SALT TAB* [Adderall TAB*] 20 mg PO TID 12/04/18 [History Confirmed 02/28/19] Cyclobenzaprine HCl 10 mg PO BEDTIME 12/04/18 [History Confirmed 02/28/19] clonazePAM TAB(*) [Klonopin TAB(*)] 1 mg PO TID PRN MDD 3 12/04/18 [History Confirmed 02/28/19] Butalb/Acetamin/Caff TAB* [Fioricet TAB*] 1 tab PO QID PRN 12/30/18 [History Confirmed 12/30/18] Hydrocodone/Acetaminophen [Hydrocodone-Acetamin 5-325 mg] 1 tab PO Q4H PRN 12/30 [History Confirmed 02/28/19] OLANZapine [Zyprexa Zydis] 10 mg PO BID 12/30/18 [History Confirmed 02/28/19] Sildenafil (NF) [Viagra (NF)] 25 mg PO ONCE 12/30/18 [History Confirmed 02/28/19 ] Escitalopram * [Lexapro *] 20 mg PO DAILY 02/28/19 [History Confirmed 02/28/19] Fexofenadine (NF) [Saniya 180 (NF)] 1 tab PO DAILY 02/28/19 [History Confirmed 02/28/19] SUMAtriptan TAB* [Imitrex TAB*] 50 mg PO ONCE PRN 02/28/19 [History Confirmed ] - History of Current Complaint Chief Complaint: EDShortnessOfBreath Time Seen by Provider: 02/28/19 23:49 Hx Obtained From: Patient Onset/Duration: Lasting Days, Lasting Weeks, Still Present - Allergy/Home Medications Allergies/Adverse Reactions: Allergies Allergy/AdvReac Type Severity Reaction Status Date / Time Penicillins Allergy Unknown Verified 12/30/18 03:16 Reaction Details shellfish derived Allergy Unknown Verified 12/30/18 03:16 Reaction Details Home Medications: Home Medications Escitalopram * [Lexapro *] 20 mg PO DAILY 02/28/19 [History Confirmed 02/28/19] Fexofenadine (NF) [Saniya 180 (NF)] 1 tab PO DAILY 02/28/19 [History Confirmed 02/28/19] SUMAtriptan TAB* [Imitrex TAB*] 50 mg PO ONCE PRN 02/28/19 [History Confirmed ] PMH/Surg Hx/FS Hx/Imm Hx Endocrine/Hematology History: Denies: Hx Anticoagulant Therapy, Hx Diabetes, Hx Thyroid Disease Cardiovascular History: Denies: Hx Congestive Heart Failure, Hx Deep Vein Thrombosis, Hx Hypertension , Hx Myocardial Infarction, Hx Pacemaker/ICD Respiratory History: Reports: Hx Asthma - Albuterol inhaler episodically. Denies: Hx Chronic Obstructive Pulmonary Disease (COPD), Hx Lung Cancer, Hx Pneumonia, Hx Pulmonary Embolism GI History: Reports: Other GI Disorders - Hepatitis B Denies: Hx Gall Bladder Disease, Hx Gastrointestinal Bleed, Hx Ulcer, Hx Urosepsis History: Denies: Hx Kidney Stones, Hx Renal Disease Musculoskeletal History: Reports: Hx Fibromyalgia - 2006 ER visit for medication Sensory History: Reports: Hx Contacts or Glasses Denies: Hx Hearing Aid Opthamlomology History: Reports: Hx Contacts or Glasses Neurological History: Reports: Hx Headaches, Hx Migraine Denies: Hx Dementia, Hx Seizures, Hx Transient Ischemic Attacks (TIA) Psychiatric History: Reports: Hx Anxiety, Hx Attention Deficit Hyperactivity Disorder, Hx Depression, Hx Community Mental Health Tx - seen at [facility], Hx Schizophrenia Denies: Hx Eating Disorder, Hx Panic Disorder, Hx of Violent Episodes Against Others - Surgical History Surgery Procedure, Year, and Place: Appendectomy, HERNIA REPAIR Hx Anesthesia Reactions: No - Immunization History Date of Tetanus Vaccine: pt states w/in last 10 years Date of Influenza Vaccine: 2013 Infectious Disease History: No Infectious Disease History: Denies: Hx Clostridium Difficile, Hx Hepatitis, Hx Human Immunodeficiency Virus (HIV), Hx of Known/Suspected MRSA, Hx Shingles, Hx Tuberculosis, Hx Known/ Suspected VRE, Hx Known/Suspected VRSA, History Other Infectious Disease, Traveled Outside the [place] in Last 30 Days - Family History Known Family History: Positive: None - reviewed & noncontributory, Hypertension , Other - Cancer in father. Mother has Alzheimers - Social History Alcohol Use: Daily Alcohol Amount: 1-2 a day, has desire to quit Hx Substance Use: Yes Substance Use Type: Reports: Marijuana Substance Use Comment - Amount & Last Used: drinks coffee and tea, marijuana rarely Hx Tobacco Use: Yes Smoking Status (MU): Heavy Every Day Tobacco Smoker Type: Cigarettes Amount Used/How Often: 1 ppd Length of Time of Smoking/Using Tobacco: 25 years Have You Smoked in the Last Year: Yes Review of Systems Positive: Other - Body aches Positive: Shortness Of Breath Positive: Headache All Other Systems Reviewed And Are Negative: Yes Physical Exam - Summary Physical Exam Summary: VITAL SIGNS: Reviewed. GENERAL: Patient is a well-developed and nourished MALE who is lying comfortable in the stretcher. Patient is not in any acute respiratory distress. HEAD AND FACE: No signs of trauma. No ecchymosis, hematomas or skull depressions. No sinus tenderness. EYES: PERRLA, EOMI x 2, No injected conjunctiva, no nystagmus. EARS: Hearing grossly intact. Ear canals and tympanic membranes are within normal limits. MOUTH: Oropharynx within normal limits. NECK: Supple, trachea is midline, no adenopathy, no JVD, no carotid bruit, no c- spine tenderness, neck with full ROM. CHEST: Symmetric, no tenderness at palpation LUNGS: Clear to auscultation bilaterally. No wheezing or crackles. Decreased breath sounds bilaterally. CVS: Regular rate and rhythm, S1 and S2 present, no murmurs or gallops appreciated. ABDOMEN: Soft, non-tender. No signs of distention. No rebound no guarding, and no masses palpated. Bowel sounds are normal. EXTREMITIES: FROM in all major joints, no edema, no cyanosis or clubbing. NEURO: Alert and oriented x 3. No acute neurological deficits. Speech is normal and follows commands. SKIN: Dry and warm Triage Information Reviewed: Yes Vital Signs On Initial Exam: Initial Vitals Temp Pulse Resp BP Pulse Ox 100.2 F 91 18 136/81 96 02/28/19 23:40 02/28/19 23:40 02/28/19 23:40 02/28/19 23:40 02/28/19 23:40 Vital Signs Reviewed: Yes Diagnostics - Vital Signs Vital Signs Temp Pulse Resp BP Pulse Ox 02/28/19 23:40 100.2 F 91 18 136/81 96 - Laboratory Lab Statement: Any lab studies that have been ordered have been reviewed, and results considered in the medical decision making process. Course/Dx - Course Course Of Treatment: This patient is a 48 year old male presenting to [facility] with a chief complaint of shortness of breath since 2 days ago. Physical exam revealed decreased breath sounds. Patient eloped at 0030. - Diagnoses Provider Diagnoses: Shortness of breath Discharge - Sign-Out/Discharge Documenting (check all that apply): Patient Departure - Elopement - Discharge Plan Disposition: ELOPEMENT Referrals: Prasad Shah MD [Primary Care Provider] - - Attestation Statements Document Initiated by Scribe: Yes Documenting Scribe: Villa Davis Provider For Whom Scribe is Documenting (Include Credential): Rick Barr MD Scribe Attestation: Villa Guajardo, scribed for Rick Barr MD on 03/01/19 at 0029. Status of Scribe Document: Ready
[2019-03-01] MEDS ORDERED: NS 0.9% 1000 ML** 1,000 ML IV ONE (00:04)
[2019-03-01] MEDS ORDERED: Albuterol/Ipratropium NEB.SOL* Albuterol 2.5 MG/Ipratropium 0.5 MG 3 ML INH ONE (00:06)
[2019-03-01] MEDS ORDERED: Acetaminophen TAB* 325 MG PO ONE (00:07)
[2019-03-01] MEDS ORDERED: Albuterol 2.5 MG/3 ML NEB.SOL* (0.083%) INH SCH (01:00)
== END 2019-03-01 00:42 | disposition left against medical advice (07) ==
LOC: ED 23:38
DX: R06.02 Shortness of breath (principal); Z88.0 Allergy status to penicillin; R52 Pain, unspecified; R51 Headache; F17.210 Nicotine dependence, cigarettes, uncomplicated; Z79.899 Other long term (current) drug therapy
CPT/HCPCS: 99282

== ENCOUNTER 2019-04-20 21:26 | Emergency (ER) | payer MEDICARE, MEDICAID ==
[2019-04-21] MEDS ORDERED: Ketorolac INJ* 30 MG/ML 1 ML VIAL IM ONE (00:16)
[2019-04-21] MEDS ORDERED: Ondansetron ODT TAB* 4 MG PO ONE (00:16)
--- NOTE | 2019-04-21 00:19 | ED ---
Complex/Multi-Sys Presentation - HPI Summary HPI Summary: 48-year-old male presents with a multitude of complaints today. He states he ran out of Adderall and is causing him to have all over body aches. He has been seen for this in the past. He was prescribed adderall and states lost script two weeks ago. He hasn't contacted anyone about this. He admits to headache. Has history of migraines. States there is nothing different about this headache then his normal migraines. not worst headache of life. Has sumatriptan and fiorcet for migraines at home. Only took the fiorcet. He admits to nausea. He is also on Bactrim for a skin infection. He denies any fevers. No chest pain or shortness of breath. no vomiting. No cough. - History Of Current Complaint Chief Complaint: EDMedicationRefill Time Seen by Provider: 04/20/19 23:59 - Allergies/Home Medications Allergies/Adverse Reactions: Allergies Allergy/AdvReac Type Severity Reaction Status Date / Time Penicillins Allergy Unknown Verified 12/30/18 03:16 Reaction Details shellfish derived Allergy Unknown Verified 12/30/18 03:16 Reaction Details Home Medications: Home Medications Sulfamethox/Trimethoprim DS* [Bactrim DS 800/160 TAB*] 1 tab PO DAILY 04/21/19 [ History Confirmed 04/21/19] hydrOXYzine HCL TAB* [Atarax 25 MG TAB*] 25 mg PO QID 04/21/19 [History Confirmed 04/21/19] PMH/Surg Hx/FS Hx/Imm Hx Endocrine/Hematology History: Denies: Hx Anticoagulant Therapy, Hx Diabetes, Hx Thyroid Disease Cardiovascular History: Denies: Hx Congestive Heart Failure, Hx Deep Vein Thrombosis, Hx Hypertension , Hx Myocardial Infarction, Hx Pacemaker/ICD Respiratory History: Reports: Hx Asthma - Albuterol inhaler episodically. Denies: Hx Chronic Obstructive Pulmonary Disease (COPD), Hx Lung Cancer, Hx Pneumonia, Hx Pulmonary Embolism GI History: Reports: Other GI Disorders - Hepatitis B Denies: Hx Gall Bladder Disease, Hx Gastrointestinal Bleed, Hx Ulcer, Hx Urosepsis History: Denies: Hx Kidney Stones, Hx Renal Disease Musculoskeletal History: Reports: Hx Fibromyalgia - 2006 ER visit for medication Sensory History: Reports: Hx Contacts or Glasses Denies: Hx Hearing Aid Opthamlomology History: Reports: Hx Contacts or Glasses Neurological History: Reports: Hx Headaches, Hx Migraine Denies: Hx Dementia, Hx Seizures, Hx Transient Ischemic Attacks (TIA) Psychiatric History: Reports: Hx Anxiety, Hx Attention Deficit Hyperactivity Disorder, Hx Depression, Hx Community Mental Health Tx - seen at [facility], Hx Schizophrenia Denies: Hx Eating Disorder, Hx Panic Disorder, Hx of Violent Episodes Against Others - Surgical History Surgery Procedure, Year, and Place: Appendectomy, HERNIA REPAIR Hx Anesthesia Reactions: No - Immunization History Date of Tetanus Vaccine: pt states w/in last 10 years Date of Influenza Vaccine: 2013 Infectious Disease History: No Infectious Disease History: Denies: Hx Clostridium Difficile, Hx Hepatitis, Hx Human Immunodeficiency Virus (HIV), Hx of Known/Suspected MRSA, Hx Shingles, Hx Tuberculosis, Hx Known/ Suspected VRE, Hx Known/Suspected VRSA, History Other Infectious Disease, Traveled Outside the [place] in Last 30 Days - Family History Known Family History: Positive: None - reviewed & noncontributory, Hypertension , Other - Cancer in father. Mother has Alzheimers - Social History Alcohol Use: Daily Alcohol Amount: 1-2 a day, has desire to quit Hx Substance Use: Yes Substance Use Type: Reports: Marijuana Substance Use Comment - Amount & Last Used: drinks coffee and tea, marijuana weekly Hx Tobacco Use: Yes Smoking Status (MU): Heavy Every Day Tobacco Smoker Type: Cigarettes Amount Used/How Often: 1 ppd Length of Time of Smoking/Using Tobacco: 25 years Have You Smoked in the Last Year: Yes Review of Systems Negative: Fever Negative: Chest Pain Negative: Shortness Of Breath, Cough Positive: Nausea. Negative: Abdominal Pain, Vomiting Positive: Myalgia - all over body aches Positive: Headache All Other Systems Reviewed And Are Negative: Yes Physical Exam Triage Information Reviewed: Yes Vital Signs On Initial Exam: Initial Vitals Temp Pulse Resp BP Pulse Ox 97.8 F 101 18 117/68 95 04/20/19 21:28 04/20/19 21:28 04/20/19 21:28 04/20/19 21:28 04/20/19 21:28 Vital Signs Reviewed: Yes Appearance: Positive: Well-Appearing Skin: Positive: Warm, Dry Head/Face: Positive: Normal Head/Face Inspection Eyes: Positive: Normal, EOMI, ANIN, Conjunctiva Clear ENT: Positive: Normal ENT inspection, Pharynx normal, TMs normal Respiratory/Lung Sounds: Positive: Clear to Auscultation, Breath Sounds Present Cardiovascular: Positive: Normal, RRR Abdomen Description: Positive: Nontender, Soft Bowel Sounds: Positive: Present Musculoskeletal: Positive: Normal Neurological: Positive: Sensory/Motor Intact, Alert, Oriented to Person Place, Time, CN Intact II-III, Finger to Nose Psychiatric: Positive: Normal Diagnostics - Vital Signs Vital Signs Temp Pulse Resp BP Pulse Ox 04/20/19 21:28 97.8 F 101 18 117/68 95 - Laboratory Lab Statement: Any lab studies that have been ordered have been reviewed, and results considered in the medical decision making process. Complex Multi-Symp Course/Dx Course Of Treatment: 48-year-old male presents with a multitude of complaints today. He states he ran out of Adderall and is causing him to have all over body aches. He has been seen for this in the past. He was prescribed adderall and states lost script two weeks ago. He hasn't contacted anyone about this. He admits to headache. Has history of migraines. States there is nothing different about this headache then his normal migraines. not worst headache of life. Has sumatriptan and fiorcet for migraines at home. Only took the fiorcet. He admits to nausea. He is also on Bactrim for a skin infection. He denies any fevers. No chest pain or shortness of breath. no vomiting. No cough. On exam lungs clear to auscultation. Has normal neuro exam. Discussed cannot fill prescription for pain medication or Adderall here. gave dose of Toradol and Zofran. Stoney prescribe Zofran for nausea. Told to contact primary about refills. Patient understands agrees with plan. - Diagnoses Differential Diagnoses/HQI/PQRI: Other - migraine, med refill, gastroenteritis Provider Diagnoses: Migraine, Encounter for medication refill, Generalized body aches, Nausea Discharge - Sign-Out/Discharge Documenting (check all that apply): Patient Departure Patient Received Moderate/Deep Sedation with Procedure: No - Discharge Plan Condition: Good Disposition: HOME Prescriptions: Ondansetron ODT TAB* [Zofran 4 MG Odt TAB*] 4 mg PO Q6H PRN #20 tab.odt PRN Reason: Nausea Referrals: Prasad Shah MD [Primary Care Provider] - Additional Instructions: we can not fill scripts for adderall in ED take zofran every 6 hours for nausea take tyenlol or ibuprofen every 6 hours for pain follow up with primary Return to ED if develop any new or worsening symptoms - Billing Disposition and Condition Condition: GOOD Disposition: Home
[2019-04-21 00:33] VITALS: BP 117/67
== END 2019-04-21 00:32 | disposition home or self-care (01) ==
LOC: ED 21:26
DX: Z76.0 Encounter for issue of repeat prescription (principal); J45.909 Unspecified asthma, uncomplicated; M79.7 Fibromyalgia; F90.9 Attention-deficit hyperactivity disorder, unspecified type; F17.210 Nicotine dependence, cigarettes, uncomplicated; G43.909 Migraine, unspecified, not intractable, without status migrainosus; M79.10 Myalgia, unspecified site; R11.0 Nausea
CPT/HCPCS: 96372; 99282; A9270-GY; J1885

== ENCOUNTER 2019-05-05 13:32 | Emergency (ER) | payer MEDICARE ==
[2019-05-05] MEDS ORDERED: clonazePAM TAB(*) 1 MG PO ONE (14:04)
--- NOTE | 2019-05-05 14:05 | ED ---
Medical Screening - HPI Summary HPI Summary: Patient is a 48-year-old male who presents emergency department for exacerbation of anxiety. Patient states he ran out of his prescribed Klonopin 3 days ago and is feeling very anxious today. He denies suicidal or homicidal ideations. Patient had 90 1mg tablets of Klonopin filled 04/14/19 prescribed 1 mg 3 times a day. Patient states he's been taking 2mg QID instead. Sxs are mild in severity. No current modifying factors. - History of Current Complaint Chief Complaint: EDMedicationRefill Stated Complaint: ANXIETY PER EMS Time Seen by Provider: 05/05/19 13:35 PMH/Surg Hx/FS Hx/Imm Hx Previously Healthy: Yes Endocrine/Hematology History: Denies: Hx Anticoagulant Therapy, Hx Diabetes, Hx Thyroid Disease Cardiovascular History: Denies: Hx Congestive Heart Failure, Hx Deep Vein Thrombosis, Hx Hypertension , Hx Myocardial Infarction, Hx Pacemaker/ICD Respiratory History: Reports: Hx Asthma - Albuterol inhaler episodically. Denies: Hx Chronic Obstructive Pulmonary Disease (COPD), Hx Lung Cancer, Hx Pneumonia, Hx Pulmonary Embolism GI History: Reports: Other GI Disorders - Hepatitis B Denies: Hx Gall Bladder Disease, Hx Gastrointestinal Bleed, Hx Ulcer, Hx Urosepsis History: Denies: Hx Kidney Stones, Hx Renal Disease Musculoskeletal History: Reports: Hx Fibromyalgia - 2005 ER visit for medication Sensory History: Reports: Hx Contacts or Glasses Denies: Hx Hearing Aid Opthamlomology History: Reports: Hx Contacts or Glasses Neurological History: Reports: Hx Headaches, Hx Migraine Denies: Hx Dementia, Hx Seizures, Hx Transient Ischemic Attacks (TIA) Psychiatric History: Reports: Hx Anxiety, Hx Attention Deficit Hyperactivity Disorder, Hx Depression, Hx Community Mental Health Tx - seen at [facility], Hx Schizophrenia Denies: Hx Eating Disorder, Hx Panic Disorder, Hx of Violent Episodes Against Others - Surgical History Surgery Procedure, Year, and Place: Appendectomy, HERNIA REPAIR Hx Anesthesia Reactions: No - Immunization History Date of Tetanus Vaccine: pt states w/in last 10 years Date of Influenza Vaccine: 2013 Infectious Disease History: No Infectious Disease History: Denies: Hx Clostridium Difficile, Hx Hepatitis, Hx Human Immunodeficiency Virus (HIV), Hx of Known/Suspected MRSA, Hx Shingles, Hx Tuberculosis, Hx Known/ Suspected VRE, Hx Known/Suspected VRSA, History Other Infectious Disease, Traveled Outside the [place] in Last 30 Days - Family History Known Family History: Positive: None - reviewed & noncontributory, Hypertension , Other - Cancer in father. Mother has Alzheimers - Social History Alcohol Use: Daily Alcohol Amount: 1-2 a day, has desire to quit Hx Substance Use: Yes Substance Use Type: Reports: Marijuana Substance Use Comment - Amount & Last Used: drinks coffee and tea, marijuana weekly Hx Tobacco Use: Yes Smoking Status (MU): Heavy Every Day Tobacco Smoker Type: Cigarettes Amount Used/How Often: 1 ppd Length of Time of Smoking/Using Tobacco: 25 years Have You Smoked in the Last Year: Yes Review of Systems Positive: Anxious. Negative: Depressed All Other Systems Reviewed And Are Negative: Yes Physical Exam Triage Information Reviewed: Yes Vital Signs On Initial Exam: Initial Vitals Temp Pulse Resp BP Pulse Ox 97.9 F 88 16 142/58 99 05/05/19 13:34 05/05/19 13:34 05/05/19 13:34 05/05/19 13:34 05/05/19 13:34 Vital Signs Reviewed: Yes Appearance: Positive: Well-Appearing - Pt. sitting in chair in NAD. Skin: Positive: Warm, Dry Head/Face: Positive: Normal Head/Face Inspection Eyes: Positive: Normal, EOMI Neck: Positive: Supple Musculoskeletal: Positive: Normal, Strength/ROM Intact Neurological: Positive: Normal, CN Intact II-III Psychiatric: Positive: Affect/Mood Appropriate Diagnostics - Vital Signs Vital Signs Temp Pulse Resp BP Pulse Ox 05/05/19 13:34 97.9 F 88 16 142/58 99 - Laboratory Lab Statement: Any lab studies that have been ordered have been reviewed, and results considered in the medical decision making process. Course/Dx - Course Course Of Treatment: Pt. given one dose of Klonopin in ED. Explained to pt. must see his PCP for any other medication. Pt. understands and agrees with plan. - Diagnoses Provider Diagnoses: Anxiety, Benzodiazepine abuse Discharge - Sign-Out/Discharge Documenting (check all that apply): Patient Departure Patient Received Moderate/Deep Sedation with Procedure: No - Discharge Plan Condition: Good Disposition: HOME Patient Education Materials: Anxiety (ED) Referrals: Prasad Shah MD [Primary Care Provider] - Additional Instructions: Call your PCP today for any further Klonopin Return to ER if symptoms change or worsen - Billing Disposition and Condition Condition: GOOD Disposition: Home
[2019-05-05 14:44] VITALS: BP 136/78
== END 2019-05-05 14:40 | disposition home or self-care (01) ==
LOC: ED 13:32
DX: F41.9 Anxiety disorder, unspecified (principal); F13.10 Sedative, hypnotic or anxiolytic abuse, uncomplicated; F90.9 Attention-deficit hyperactivity disorder, unspecified type; F20.9 Schizophrenia, unspecified; F17.210 Nicotine dependence, cigarettes, uncomplicated; Z79.899 Other long term (current) drug therapy; Z88.0 Allergy status to penicillin
CPT/HCPCS: 99281; 99282; A9270-GY

== ENCOUNTER 2019-05-05 15:26 | Emergency (ER) | payer MEDICARE ==
[2019-05-05] MEDS ORDERED: clonazePAM TAB(*) 1 MG PO ONE (18:13)
[2019-05-05] MEDS ORDERED: Acetaminophen TAB* 325 MG PO ONE (18:15)
--- NOTE | 2019-05-05 18:16 | ED ---
Psychiatric Complaint - HPI Summary HPI Summary: Patient complains of anxiety. Was seen here earlier today for same. Patient states he ran out of his clonazepam early, last taken 3 days ago. Patient received 90 tablets for 30 day supply of diazepam on 04/14. Admits that he is frequently taking too many and running out early. States no symptoms over the last 3 days, but states he had sudden onset anxiety today. Also complains of sudden onset headache. Denies any other pain, symptoms or injury. - History Of Current Complaint Chief Complaint: EDPsychosocial Time Seen by Provider: 05/05/19 17:43 Hx Obtained From: Patient Onset/Duration: Gradual Onset, Lasting Hours Timing: Constant Severity Initially: Moderate Severity Currently: Moderate Character: Anxious Aggravating Factor(s): Therapy Non-compliance Alleviating Factor(s): Nothing Associated Signs And Symptoms: Positive: Negative - Allergies/Home Medications Allergies/Adverse Reactions: Allergies Allergy/AdvReac Type Severity Reaction Status Date / Time Penicillins Allergy Unknown Verified 05/05/19 13:38 Reaction Details shellfish derived Allergy Unknown Verified 05/05/19 13:38 Reaction Details PMH/Surg Hx/FS Hx/Imm Hx Endocrine/Hematology History: Denies: Hx Anticoagulant Therapy, Hx Diabetes, Hx Thyroid Disease Cardiovascular History: Denies: Hx Congestive Heart Failure, Hx Deep Vein Thrombosis, Hx Hypertension , Hx Myocardial Infarction, Hx Pacemaker/ICD Respiratory History: Reports: Hx Asthma - Albuterol inhaler episodically. Denies: Hx Chronic Obstructive Pulmonary Disease (COPD), Hx Lung Cancer, Hx Pneumonia, Hx Pulmonary Embolism GI History: Reports: Other GI Disorders - Hepatitis B Denies: Hx Gall Bladder Disease, Hx Gastrointestinal Bleed, Hx Ulcer, Hx Urosepsis History: Denies: Hx Kidney Stones, Hx Renal Disease Musculoskeletal History: Reports: Hx Fibromyalgia - 2005 ER visit for medication Sensory History: Reports: Hx Contacts or Glasses Denies: Hx Hearing Aid Opthamlomology History: Reports: Hx Contacts or Glasses EENT History: Denies: Hx Deafness Neurological History: Reports: Hx Headaches, Hx Migraine Denies: Hx Dementia, Hx Seizures, Hx Transient Ischemic Attacks (TIA) Psychiatric History: Reports: Hx Anxiety, Hx Attention Deficit Hyperactivity Disorder, Hx Depression, Hx Community Mental Health Tx - seen at [facility], Hx Schizophrenia Denies: Hx Eating Disorder, Hx Panic Disorder, Hx of Violent Episodes Against Others - Surgical History Surgery Procedure, Year, and Place: Appendectomy, HERNIA REPAIR Hx Anesthesia Reactions: No - Immunization History Date of Tetanus Vaccine: pt states w/in last 10 years Date of Influenza Vaccine: 2013 Infectious Disease History: No Infectious Disease History: Denies: Hx Clostridium Difficile, Hx Hepatitis, Hx Human Immunodeficiency Virus (HIV), Hx of Known/Suspected MRSA, Hx Shingles, Hx Tuberculosis, Hx Known/ Suspected VRE, Hx Known/Suspected VRSA, History Other Infectious Disease, Traveled Outside the [place] in Last 30 Days - Family History Known Family History: Positive: None - reviewed & noncontributory, Hypertension , Other - Cancer in father. Mother has Alzheimers - Social History Alcohol Use: Daily Alcohol Amount: 1-2 a day, has desire to quit Hx Substance Use: Yes Substance Use Type: Reports: Marijuana Substance Use Comment - Amount & Last Used: drinks coffee and tea, marijuana weekly Hx Tobacco Use: Yes Smoking Status (MU): Heavy Every Day Tobacco Smoker Type: Cigarettes Amount Used/How Often: 1 ppd Length of Time of Smoking/Using Tobacco: 25 years Have You Smoked in the Last Year: Yes Review of Systems Constitutional: Negative Eyes: Negative ENT: Negative Cardiovascular: Negative Respiratory: Negative Gastrointestinal: Negative Genitourinary: Negative Musculoskeletal: Negative Skin: Negative Positive: Headache Positive: Anxious All Other Systems Reviewed And Are Negative: Yes Physical Exam - Summary Physical Exam Summary: Patient is alert and oriented, though mildly anxious. Nondiaphoretic. No tremors noted. Triage Information Reviewed: Yes Vital Signs On Initial Exam: Initial Vitals Temp Pulse Resp BP Pulse Ox 96.7 F 108 18 122/93 94 05/05/19 15:29 05/05/19 15:29 05/05/19 15:29 05/05/19 15:29 05/05/19 15:29 Vital Signs Reviewed: Yes Appearance: Positive: Well-Appearing Skin: Positive: Warm Head/Face: Positive: Normal Head/Face Inspection Eyes: Positive: Normal Neck: Positive: Supple Respiratory/Lung Sounds: Positive: Clear to Auscultation Cardiovascular: Positive: Normal Abdomen Description: Positive: Nontender Musculoskeletal: Positive: Normal Neurological: Positive: Normal Psychiatric: Positive: Normal AVPU Assessment: Alert - Macy Coma Scale Best Eye Response: 4 - Spontaneous Best Motor Response: 6 - Obeys Commands Best Verbal Response: 5 - Oriented Coma Scale Total: 15 Diagnostics - Vital Signs Vital Signs Temp Pulse Resp BP Pulse Ox 05/05/19 15:29 96.7 F 108 18 122/93 94 - Laboratory Lab Statement: Any lab studies that have been ordered have been reviewed, and results considered in the medical decision making process. Course/Dx - Course Course Of Treatment: Patient complains of anxiety. Was seen here earlier today for same. Patient states he ran out of his clonazepam early, last taken 3 days ago. Patient received 90 tablets for 30 day supply of diazepam on 04/14. Admits that he is frequently taking too many and running out early. States no symptoms over the last 3 days, but states he had sudden onset anxiety today. Also complains of sudden onset headache. Denies any other pain, symptoms or injury. Vital signs within normal limits. Patient was given clonazepam 1 mg by mouth here earlier today. Patient given another clonazepam 1 mg here in the ED. Rx for one days worth of clonazepam to provide patient with opportunity to follow-up with primary care. Prescription for one days worth of clonazepam provided due to risk of benzodiazepine withdrawal. Patient's pharmacy called and said they would not fill prescription, stating it is against the law to fill a prescription for controlled substances patient has prescription for same. This provider advise pharmacist to tell patient to follow-up with primary care for medication management and to return to the ED for any possible withdrawal symptoms. Pharmacist agreed to plan. - Differential Dx/Clinical Impression Provider Diagnosis: Anxiety Discharge - Sign-Out/Discharge Documenting (check all that apply): Patient Departure Patient Received Moderate/Deep Sedation with Procedure: No - Discharge Plan Condition: Stable Disposition: HOME Prescriptions: clonazePAM TAB(*) [Klonopin TAB(*)] 1 mg PO Q8H PRN 1 Days #3 tab MDD 3 tabs PRN Reason: Anxiety Patient Education Materials: Anxiety (ED) Referrals: Prasad Shah MD [Primary Care Provider] - Additional Instructions: Follow-up with your primary care doctor for medication refill management. - Billing Disposition and Condition Condition: STABLE Disposition: Home
[2019-05-05 18:32] VITALS: BP 134/79
== END 2019-05-05 18:31 | disposition home or self-care (01) ==
LOC: ED 15:26
DX: F41.9 Anxiety disorder, unspecified (principal); F17.210 Nicotine dependence, cigarettes, uncomplicated; Z88.0 Allergy status to penicillin
CPT/HCPCS: 99282; A9270-GY

== ENCOUNTER 2019-06-01 09:26 | Emergency (ER) | payer MEDICARE ==
[2019-06-01] MEDS ORDERED: Ketorolac INJ* 30 MG/ML 1 ML VIAL IV ONE (09:28)
[2019-06-01] MEDS ORDERED: Metoclopramide IV* 5 MG/ML 2 ML VIAL IV ONE (09:29)
[2019-06-01] MEDS ORDERED: NS 0.9% 1000 ML** 1,000 ML IV ONE (09:29)
[2019-06-01 09:45] LABS: Hematocrit 32 % (42-52); Hemoglobin 10.9 g/dL (14.0-18.0); Mean Corpuscular HGB Conc 34 g/dL (31-36); Mean Corpuscular Hemoglobin 33 pg (27-31); Mean Corpuscular Volume 98 fL (80-94); Platelet Count 270 10^3/uL (150-450); Red Cell Distribution Width 19 % (10-15); White Blood Count 18.7 10^3/uL (3.5-10.8)
[2019-06-01 10:02] LABS: BUN/Creatinine Ratio 14.3 (8-20); C Reactive Protein 6.96 mg/L (<8.01); Calcium 8.9 mg/dL (8.6-10.3); EGFR African American 99.2 (>60); Potassium 4.2 mmol/L (3.5-5.0); Total Bilirubin 0.5 mg/dL (0.2-1.0)
[2019-06-01 10:24] LABS: ABS Basophils 0.1 10^3/ul (0-0.2); ABS Lymphocytes 1.3 10^3/ul (1.0-4.8); ABS Monocytes 0.8 10^3/ul (0-0.8); ABS Neutrophils 16.6 10^3/ul (1.5-7.7); Eosinophil % 0.1 %; Lymphocyte % 6.7 %; Nucleated Red Blood Cells % 0.1
[2019-06-01 10:27] LABS: Polychromasia 1+
[2019-06-01 10:31] LABS: Schistocytes 1+
--- NOTE | 2019-06-01 12:08 | ED ---
Abdominal Pain/Male - HPI Summary HPI Summary: Patient is a 48-year-old male with a history of anxiety and depression on multiple medications presenting to the ED with abdominal pain x 2 days. He states abdominal pain is diffuse. Denies any nausea or vomiting. Denies any diarrhea or constipation. Denies any back pain or urinary symptoms. He is very lethargic on arrival, and his O2 sat on arrival is 82% on room air. He states he is due for his gabapentin, Adderall and clonidine medications. Denies any fevers, sweats, chills. He states he has had abdominal pain in the past when it he does not get his medication right away. - History of Current Complaint Chief Complaint: EDAbdPain Stated Complaint: ABD PAIN PER EMS Time Seen by Provider: 06/01/19 09:28 Hx Obtained From: Patient Onset/Duration: Sudden Onset Timing: Constant Severity Initially: Moderate Severity Currently: Moderate Pain Intensity: 6 Pain Scale Used: 0-10 Numeric Location: Diffuse Radiates: No Character: Cramping Aggravating Factor(s): Nothing Alleviating Factor(s): Nothing Associated Signs And Symptoms: Positive: Negative - Risk Factors Testicular Torsion: Negative Cardiac Risk Factors: Negative - Allergies/Home Medications Allergies/Adverse Reactions: Allergies Allergy/AdvReac Type Severity Reaction Status Date / Time Penicillins Allergy Unknown Verified 05/05/19 13:38 Reaction Details shellfish derived Allergy Unknown Verified 05/05/19 13:38 Reaction Details PMH/Surg Hx/FS Hx/Imm Hx Previously Healthy: Yes Endocrine/Hematology History: Denies: Hx Anticoagulant Therapy, Hx Diabetes, Hx Thyroid Disease Cardiovascular History: Denies: Hx Congestive Heart Failure, Hx Deep Vein Thrombosis, Hx Hypertension , Hx Myocardial Infarction, Hx Pacemaker/ICD Respiratory History: Reports: Hx Asthma - Albuterol inhaler episodically. Denies: Hx Chronic Obstructive Pulmonary Disease (COPD), Hx Lung Cancer, Hx Pneumonia, Hx Pulmonary Embolism GI History: Reports: Other GI Disorders - Hepatitis B Denies: Hx Gall Bladder Disease, Hx Gastrointestinal Bleed, Hx Ulcer, Hx Urosepsis History: Denies: Hx Kidney Stones, Hx Renal Disease Musculoskeletal History: Reports: Hx Fibromyalgia - 2006 ER visit for medication Sensory History: Reports: Hx Contacts or Glasses Denies: Hx Deafness, Hx Hearing Aid Opthamlomology History: Reports: Hx Contacts or Glasses Neurological History: Reports: Hx Headaches, Hx Migraine Denies: Hx Dementia, Hx Seizures, Hx Transient Ischemic Attacks (TIA) Psychiatric History: Reports: Hx Anxiety, Hx Attention Deficit Hyperactivity Disorder, Hx Depression, Hx Community Mental Health Tx - seen at [facility], Hx Schizophrenia Denies: Hx Eating Disorder, Hx Panic Disorder, Hx of Violent Episodes Against Others - Surgical History Surgery Procedure, Year, and Place: Appendectomy, HERNIA REPAIR Hx Anesthesia Reactions: No - Immunization History Date of Tetanus Vaccine: pt states w/in last 10 years Date of Influenza Vaccine: 2013 Hx Pertussis Vaccination: No Immunizations Up to Date: Yes Infectious Disease History: No Infectious Disease History: Denies: Hx Clostridium Difficile, Hx Hepatitis, Hx Human Immunodeficiency Virus (HIV), Hx of Known/Suspected MRSA, Hx Shingles, Hx Tuberculosis, Hx Known/ Suspected VRE, Hx Known/Suspected VRSA, History Other Infectious Disease, Traveled Outside the [place] in Last 30 Days - Family History Known Family History: Positive: None - reviewed & noncontributory, Hypertension , Other - Cancer in father. Mother has Alzheimers - Social History Occupation: Unemployed Lives: Alone Alcohol Use: Occasionally Alcohol Amount: 1-2 a day, has desire to quit Hx Substance Use: Yes Substance Use Type: Reports: Marijuana Substance Use Comment - Amount & Last Used: drinks coffee and tea, marijuana weekly Hx Tobacco Use: Yes Smoking Status (MU): Heavy Every Day Tobacco Smoker Type: Cigarettes Amount Used/How Often: 1 ppd Length of Time of Smoking/Using Tobacco: 25 years Have You Smoked in the Last Year: Yes Review of Systems Constitutional: Negative Negative: Fever, Chills, Fatigue, Skin Diaphoresis Negative: Palpitations, Chest Pain Negative: Shortness Of Breath, Cough Positive: Abdominal Pain. Negative: Vomiting, Diarrhea, Nausea Genitourinary: Negative Positive: no symptoms reported, see HPI Negative: Arthralgia, Myalgia Skin: Negative Neurological: Negative All Other Systems Reviewed And Are Negative: Yes Physical Exam Triage Information Reviewed: Yes Vital Signs On Initial Exam: Initial Vitals Temp Pulse Resp BP Pulse Ox 98.3 F 74 18 138/76 89 06/01/19 09:30 06/01/19 09:30 06/01/19 09:30 06/01/19 09:30 06/01/19 09:30 Vital Signs Reviewed: Yes Appearance: Positive: Well-Appearing, Well-Nourished Skin: Positive: Warm, Skin Color Reflects Adequate Perfusion Head/Face: Positive: Normal Head/Face Inspection Neck: Positive: Supple, No Lymphadenopathy Cardiovascular: Positive: RRR, Pulses are Symmetrical in both Upper and Lower Extremities Neurological: Positive: Speech Normal Psychiatric: Positive: Normal, Affect/Mood Appropriate Diagnostics - Vital Signs Vital Signs Temp Pulse Resp BP Pulse Ox 06/01/19 11:13 82 06/01/19 10:00 74 90 06/01/19 09:54 75 87 06/01/19 09:30 98.3 F 74 18 138/76 89 - Laboratory Lab Results: Lab Results 06/01/19 06/01/19 Range/Units 09:38 09:38 WBC 18.7 H (3.5-10.8) 10^3/uL RBC 3.30 L (4.18-5.48) 10^6 /uL Hgb 10.9 L (14.0-18.0) g/dL Hct 32 L (42-52) % MCV 98 H (80-94) fL MCH 33 H (27-31) pg MCHC 34 (31-36) g/dL RDW 19 H (10-15) % Plt Count 270 (150-450) 10^3/uL MPV 8.0 (7.4-10.4) fL Neut % (Auto) 88.8 % Lymph % (Auto) 6.7 % [place] % (Auto) 4.1 % Eos % (Auto) 0.1 % Baso % (Auto) 0.3 % Absolute Neuts (auto) 16.6 H (1.5-7.7) 10^3/ul Absolute Lymphs (auto) 1.3 (1.0-4.8) 10^3/ul Absolute Monos (auto) 0.8 (0-0.8) 10^3/ul Absolute Eos (auto) 0.0 (0-0.6) 10^3/ul Absolute Basos (auto) 0.1 (0-0.2) 10^3/ul Absolute Nucleated RBC 0.0 10^3/ul Neutrophils % 90.0 % Lymphocytes % 5.0 % Monocytes % 5.0 % Nucleated RBC % 0.1 Normal RBC Morphology Not Reportable Polychromasia 1+ Basophilic Stippling 1+ Anisocytosis 1+ Macrocytosis 1+ Schistocytes 1+ Hem Pathologist Commnt Pending Sodium 140 (135-145) mmol/L Potassium 4.2 (3.5-5.0) mmol/L Chloride 106 (101-111) mmol/L Carbon Dioxide 30 (22-32) mmol/L Anion Gap 4 (2-11) mmol/L BUN 14 (6-24) mg/dL Creatinine 0.98 (0.67-1.17) mg/dL Est GFR ( Amer) 99.2 (>60) Est GFR (Non-Af Amer) 82.0 (>60) BUN/Creatinine Ratio 14.3 (8-20) Glucose 119 H (70-100) mg/dL Calcium 8.9 (8.6-10.3) mg/dL Total Bilirubin 0.50 (0.2-1.0) mg/dL AST 21 (13-39) U/L ALT 19 (7-52) U/L Alkaline Phosphatase 80 (34-104) U/L C-Reactive Protein 6.96 (<8.01) mg/L Total Protein 6.0 L (6.4-8.9) g/dL Albumin 4.0 (3.2-5.2) g/dL Globulin 2.0 (2-4) g/dL Albumin/Globulin Ratio 2.0 (1-3) Amylase 49 (29-103) U/L Lipase 109 H (11.0-82.0) U/L Result Diagrams: 06/01/19 09:38 06/01/19 09:38 Lab Statement: Any lab studies that have been ordered have been reviewed, and results considered in the medical decision making process. Abdominal Pain Male Course/Dx - Course Course Of Treatment: During this course of treatment, the patient is noted to be hypoxic several times. He continues to the drowsy, falling asleep with his O2 sat at 82%. While awake, patient remains around 89-91%. He appears very drowsy at baseline and denies any SOB. Denies CP. States he has been having abd pain x 2 days. Denies diarrhea or constipation. Denies any nausea or vomiting. He is unable to describe the pain, but states it is somewhat like cramping. He has never had this before. He states his symptoms are worse when he does not get his medication right away and he is requesting his medication on arrival. He states he does have plenty of medication at home, but did not take this morning. He states he is due for his Adderall at this time which would "help me symptoms." Labs are obtained and he has a 18,000 white count. On physical examination, he does have diffuse tenderness throughout. He was given his Adderall with symptom improvement. A CT abdomen/pelvis was obtained due to his high white count and diffuse abdominal tenderness. This showed no acute findings. This patient is feeling improved and will be discharged home at this time with echinosis of abdominal pain. Rechecked his O2 sats several times and remains around 90-95% with sitting upright and ambulating. - Diagnoses Provider Diagnoses: Abdominal pain Discharge ED - Sign-Out/Discharge Documenting (check all that apply): Patient Departure Patient Received Moderate/Deep Sedation with Procedure: No - Discharge Plan Condition: Stable Disposition: HOME Patient Education Materials: Acute Abdominal Pain (ED) Referrals: Prasad Shah MD [Primary Care Provider] - Additional Instructions: Will call with any positive urine results Return to the ED if you develop any worsening or changing symptoms - Billing Disposition and Condition Condition: STABLE Disposition: Home - Attestation Statements Provider Attestation: I was available for consultation for this patient. I did not evaluate the patient, or participate in any medical decision making or disposition decisions unless I am specifically named in the chart as having consulted on the patient. If I have consulted on the patient, please see my own ED note on the patient encounter. Faisal Whatley MD
[2019-06-01] MEDS ORDERED: Iohexol 300* (CONTRAST) 10 ML SDV IV ONE (12:14)
[2019-06-01 14:34] LABS: Urine Appearance Clear; Urine Bilirubin Negative (Negative); Urine Blood Negative (Negative); Urine Color Yellow; Urine Glucose Negative (Negative); Urine Ketones Negative (Negative); Urine Nitrite Negative (Negative); Urine Protein Negative (Negative); Urine Specific Gravity > 1.060 (1.010-1.030); Urine Urobilinogen Negative (Negative)
[2019-06-01 15:05] VITALS: BP 133/56
[2019-06-02] MEDS ORDERED: Amphetamine MIXED SALT TAB* 10 MG TAB PO ONE (14:21)
== END 2019-06-01 15:04 | disposition home or self-care (01) ==
LOC: ED 09:26
DX: R10.9 Unspecified abdominal pain (principal); F41.9 Anxiety disorder, unspecified; F32.9 Major depressive disorder, single episode, unspecified; J45.909 Unspecified asthma, uncomplicated; F90.9 Attention-deficit hyperactivity disorder, unspecified type; F17.210 Nicotine dependence, cigarettes, uncomplicated; Z79.899 Other long term (current) drug therapy; Z88.0 Allergy status to penicillin
CPT/HCPCS: 36415; 71046; 74177; 80053; 81003; 82150; 83690; 85025; 85060; 86140; 96361; 96374; 96375; 99284; A9270-GY; J1885; J2765; Q9967

== ENCOUNTER 2019-07-08 12:24 | Emergency (ER) | payer MEDICAID, MEDICARE ==
[2019-07-08] MEDS ORDERED: diPHENhydraMINE PO* 50 MG PO ONE (13:42)
--- NOTE | 2019-07-08 13:50 | ED ---
Psychiatric Complaint - HPI Summary HPI Summary: This patient is a 48-year-old male presenting to the ED with anxiety symptoms. Patient states he currently takes Klonopin 4 mg daily. He states he has been on this medication for 20 years. He states he is currently out of this medication and is experiencing anxiety. He was able to call his doctor, Dr. Shah today who would not fill the medication because he was not due for a refill for another week. He came here to obtain "just one ativan." Denies any other concerns. Denies SI/HI. Pt also taking Lunesta and Hydroxyzine as well as a penile is also on hydroxyzine and Adderall. - History Of Current Complaint Chief Complaint: EDPsychosocial Time Seen by Provider: 07/08/19 13:25 Hx Obtained From: Patient Onset/Duration: Sudden Onset Timing: Constant Severity Initially: Moderate Severity Currently: Moderate Character: Anxious Aggravating Factor(s): Nothing Alleviating Factor(s): Medication - ran out 2 days ago - Risk Factor(s) Completed Suicide Risk Factors: Negative - Allergies/Home Medications Allergies/Adverse Reactions: Allergies Allergy/AdvReac Type Severity Reaction Status Date / Time Penicillins Allergy Unknown Verified 07/08/19 12:29 Reaction Details shellfish derived Allergy Unknown Verified 07/08/19 12:29 Reaction Details PMH/Surg Hx/FS Hx/Imm Hx Previously Healthy: Yes Endocrine/Hematology History: Denies: Hx Anticoagulant Therapy, Hx Diabetes, Hx Thyroid Disease Cardiovascular History: Denies: Hx Congestive Heart Failure, Hx Deep Vein Thrombosis, Hx Hypertension , Hx Myocardial Infarction, Hx Pacemaker/ICD Respiratory History: Reports: Hx Asthma - Albuterol inhaler episodically. Denies: Hx Chronic Obstructive Pulmonary Disease (COPD), Hx Lung Cancer, Hx Pneumonia, Hx Pulmonary Embolism GI History: Reports: Other GI Disorders - Hepatitis B Denies: Hx Gall Bladder Disease, Hx Gastrointestinal Bleed, Hx Ulcer, Hx Urosepsis History: Denies: Hx Kidney Stones, Hx Renal Disease Musculoskeletal History: Reports: Hx Fibromyalgia - 2006 ER visit for medication Sensory History: Reports: Hx Contacts or Glasses Denies: Hx Deafness, Hx Hearing Aid Opthamlomology History: Reports: Hx Contacts or Glasses Neurological History: Reports: Hx Headaches, Hx Migraine Denies: Hx Dementia, Hx Seizures, Hx Transient Ischemic Attacks (TIA) Psychiatric History: Reports: Hx Anxiety, Hx Attention Deficit Hyperactivity Disorder, Hx Depression, Hx Community Mental Health Tx - seen at [facility], Hx Schizophrenia Denies: Hx Eating Disorder, Hx Panic Disorder, Hx of Violent Episodes Against Others - Surgical History Surgery Procedure, Year, and Place: Appendectomy, HERNIA REPAIR Hx Anesthesia Reactions: No - Immunization History Date of Tetanus Vaccine: pt states w/in last 10 years Date of Influenza Vaccine: 2013 Infectious Disease History: No Infectious Disease History: Denies: Hx Clostridium Difficile, Hx Hepatitis, Hx Human Immunodeficiency Virus (HIV), Hx of Known/Suspected MRSA, Hx Shingles, Hx Tuberculosis, Hx Known/ Suspected VRE, Hx Known/Suspected VRSA, History Other Infectious Disease, Traveled Outside the [place] in Last 30 Days - Family History Known Family History: Positive: None - reviewed & noncontributory, Hypertension , Other - Cancer in father. Mother has Alzheimers - Social History Occupation: Unemployed Lives: Alone Alcohol Use: Occasionally Alcohol Amount: 1-2 a day, has desire to quit Hx Substance Use: Yes Substance Use Type: Reports: Marijuana Substance Use Comment - Amount & Last Used: drinks coffee and tea, marijuana weekly Hx Tobacco Use: Yes Smoking Status (MU): Heavy Every Day Tobacco Smoker Type: Cigarettes Amount Used/How Often: 1 ppd Length of Time of Smoking/Using Tobacco: 25 years Have You Smoked in the Last Year: Yes Review of Systems Negative: Fever, Chills, Fatigue, Skin Diaphoresis Negative: Palpitations, Chest Pain Negative: Shortness Of Breath, Cough Genitourinary: Negative Positive: no symptoms reported, see HPI Negative: Arthralgia, Myalgia Skin: Negative Positive: Anxious All Other Systems Reviewed And Are Negative: Yes Physical Exam Triage Information Reviewed: Yes Vital Signs On Initial Exam: Initial Vitals Temp Pulse Resp BP Pulse Ox 98.8 F 81 14 141/91 95 07/08/19 12:25 07/08/19 12:25 07/08/19 12:25 07/08/19 12:25 07/08/19 12:25 Vital Signs Reviewed: Yes Appearance: Positive: Well-Appearing, Well-Nourished Skin: Positive: Warm, Skin Color Reflects Adequate Perfusion Head/Face: Positive: Normal Head/Face Inspection Eyes: Positive: EOMI, NAIN, Conjunctiva Clear Neck: Positive: Supple Respiratory/Lung Sounds: Positive: Breath Sounds Present Cardiovascular: Positive: Normal Musculoskeletal: Positive: Strength/ROM Intact Neurological: Positive: Sensory/Motor Intact, Speech Normal Psychiatric: Positive: Normal Procedures - Sedation Patient Received Moderate/Deep Sedation with Procedure: No Diagnostics - Vital Signs Vital Signs Temp Pulse Resp BP Pulse Ox 07/08/19 12:25 98.8 F 81 14 141/91 95 - Laboratory Lab Statement: Any lab studies that have been ordered have been reviewed, and results considered in the medical decision making process. Course/Dx - Course Course Of Treatment: Patient is evaluated for anxiety symptoms. He states he has been out of his Klonopin for the past few days. He was calling his PCP for a refill, however they would not refill this medication as it is not due for a refill for another week. On arrival into the ED, I stopped was obtained. I- Lefty patient had a refill of Klonopin on 06/14/19 and is due for a refill on 07/13/19. Currently it is 07/08/19, 5 days before his refill and he states he is out of this medication. I discussed with the patient at length that I am unable to refill his prescription or give him any medication in the ED. I discussed that since he did not take it as prescribed, he is unable to obtain any other controlled substance at this time. Patient appears very fatigued and continues to need redirection and arousal during convesation. No evidence of WD. Pt was re-evaluated who said he was going through WD symptoms and appears much more awake at this time. He is non-diaphoretic and not shaking. Given benadryl for his "severe anxiety" sxs. VS stable. He will f/u with Dr. Shah. Denies SI/HI. - Differential Dx/Clinical Impression Differential Diagnosis/HQI/PQRI: Positive: Anxiety, Schizophrenia Provider Diagnosis: Anxiety, Medication refill Discharge ED - Sign-Out/Discharge Documenting (check all that apply): Patient Departure - Discharge Plan Condition: Stable Disposition: HOME Referrals: Prasad Shah MD [Primary Care Provider] - Additional Instructions: Take your medications as prescribed Please call Dr. Shah's office for a follow up Benadryl has been given to you We are unable to give or refill any prescription of your Klonopin or other benzodiazepine medications - Billing Disposition and Condition Condition: STABLE Disposition: Home - Attestation Statements Provider Attestation: I was available for consultation for this patient. I did not evaluate the patient or participate in any medical decision making or disposition decisions unless I am specifically named in the chart as having consulted on the patient. If I have consulted on the patient, please see my own ED note on the patient encounter. Faisal Whatley MD
[2019-07-08 13:56] VITALS: BP 138/75
== END 2019-07-08 13:55 | disposition home or self-care (01) ==
LOC: ED 12:24
DX: F41.9 Anxiety disorder, unspecified (principal); Z79.899 Other long term (current) drug therapy; R51 Headache; F17.210 Nicotine dependence, cigarettes, uncomplicated; Z76.0 Encounter for issue of repeat prescription
CPT/HCPCS: 99282; A9270-GY

== ENCOUNTER 2019-07-31 16:08 | Emergency (ER) | payer MEDICAID, MEDICARE ==
--- OUTSIDE RECORDS SUMMARY | 2019-07-31 16:42 | XMS REPORT | Continuity of Care Document ---
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 Description No Information Available
--- OUTSIDE RECORDS SUMMARY | 2019-07-31 16:42 | XMS REPORT | Continuity of Care Document ---
:1970 External Reference #:[id number] Author Name Meredith Molina Address [address] [place] [address] Care Team Providers Name Role Phone Prasad Shah - Family Medicine Care Team Information Environmental Laboratory Technician [phone] Yvrose Augustine - Dermatology Care Team Information Environmental Laboratory Technician Problems Active Problems Provider Date Myalgia & Myositis Unspecified Prasad Shah M.D. Onset: 12/08/2005 Depressive disorder Prasad Shah M.D. Onset: 12/08/2005 Anxiety state Prasad Shah M.D. Onset: 12/08/2005 Headache Prasad Shah M.D. [...] Prasad Shah M.D. Onset: 04/28/2014 Acute conjunctivitis Prasad Shah M.D. Onset: 10/19/2014 Verruca vulgaris Prasad [...] 03/08/2019 2% Ointment three times a day POULTRY PINNER to affected area(s) Benzonatate take 1 capsule [...] CPT Code Status Date Vaccine Lot # [id number] Given 02/27/2019 Tdap Tetanus, W Pertussis [id number] [id number] Given 08/21/2005 DO Not Use Split Influenza Virus Vaccine 04900 Given 08/02/2001 Influenza Immunization 27968 Given 08/02/2001 DO Not Use Split Influenza Virus Vaccine 50784 Given 08/31/2000 Influenza Immunization 78681 Given 08/31/2000 DO Not Use Split Influenza [...] Color Yellow Urine Appearance Clear Urine Specific [place] > 1.060 High 1.010-1.030 Urine pH 6.0 Normal 5-9 Urine Urobilinogen Negative Negative Urine Ketones Negative Negative Urine Protein Negative Negative Urine Leukocytes Negative Negative Urine Blood Negative Negative Urine Nitrite Negative Negative Urine Bilirubin Negative Negative Urine Glucose Negative Negative Comp Metabolic Panel 06/01/2019 [facility] Sodium 140 mmol/L Normal 135-145 Potassium 4.2 [...] 99.2 >60 1 Laboratory test finding 06/01/2019 [facility] Amylase 49 U/L Normal 29-103 Lipase 109 U/L High 11.0-82.0 C Reactive Protein 6.96 mg/L Normal <8.01 CBC Auto Diff 06/01/2019 [facility] White Blood Count 18.7 10^3/uL High 3.5- [...] Blood Cells % 0.1 Manual Differential 06/01/2019 [facility] Neutrophil % 90.0 % Lymphocytes % 5.0 % Monocytes % 5.0 % Macrocytosis 1+ Polychromasia 1+ Anisocytosis 1+ Basophilic Stippling 1+ Schistocytes 1+ Laboratory test 06/01/2019 [facility] Pathologist (SEE NOTE) 2 finding Review Laboratory test 02/27/2019 [facility] HCV AB (Fma) negative negative finding (607)- - HIV 1&2 Antibody Screen (Fma) negative Negative Laboratory test 02/27/2019 [facility] RPR Non Reactive Non Reactive 3 finding [address] [place] [address] (607)- - Chlamydia/GC 02/27/2019 [facility] Chlamydia Negative Negative Amplification [address] [facility] [place] [address] [place] (607)- - Neisseria gonorrhoeae, [place] Negative Negative Urinalysis Profile 12/30/2018 [facility] Urine Color Yellow Urine Appearance Clear Urine Specific [place] 1.016 Normal 1.010-1.030 Urine pH 5.0 Normal 5-9 Urine Urobilinogen Negative Negative Urine Ketones Negative Negative Urine Protein Negative Negative Urine Leukocytes Negative Negative Urine Blood Negative Negative Urine Nitrite Negative Negative Urine Bilirubin Negative Negative Urine Glucose Negative Negative Laboratory test finding 12/30/2018 [facility] Magnesium 2.1 mg/dL Normal 1.9- 2.7 Amylase 32 U/L Normal 29-103 Lipase 29 U/L Normal 11.0-82.0 C Reactive Protein 7.95 mg/L Normal <8.01 Blood Culture SEE RESULT BELOW 4 Comp Metabolic Panel 12/30/2018 [facility] Sodium 136 mmol/L Normal 135-145 Potassium 3.6 [...] Egfr 95.8 >60 5 Laboratory test 12/30/2018 [facility] Lactic Acid 1.2 mmol/L Normal 0.5-2.0 6 finding CBC Auto Diff 12/30/2018 [facility] White Blood Count 13.1 10^3/uL High 3.5- [...] 0 Influenza A & B Request 12/28/2018 [facility] Influenza A Molecular NEGATIVE Negative 7 Influenza B Molecular NEGATIVE Negative CBC Auto Diff 12/28/2018 [facility] White Blood Count 12.9 10^3/uL High 3.5- [...] Cells % 0 Comp Metabolic Panel 12/28/2018 [facility] Sodium 141 mmol/L Normal 135-145 Potassium 3.9 [...] 101.6 >60 8 Laboratory test finding 12/28/2018 [facility] Magnesium 2.2 mg/dL Normal 1.9- 2.7 Lipase 33 U/L Normal 11.0-82.0 C Reactive Protein 9.88 mg/L High <8.01 Laboratory test 12/28/2018 [facility] HIV 1&2 AB Self Nonreactive Nonreactive 9 finding Referred Rapid Influenza A & B 12/04/2018 [facility] Influenza A NEGATIVE Negative 10 Molecular Molecular Influenza B Molecular NEGATIVE Negative Laboratory test finding 12/04/2018 [facility] Rapid Influenza A & B SEE RESULT [...] lines 4 SEE RESULT BELOW Name: NATALIE TREVINO : [address]: Antonina Bourgeois MD Acct: [id number] Unit: [id number] AGE: 48 Location: [place] [address] Re12/30/18 Dis: 01/01/19 SEX: M Status: DIS IN SPEC: [id number] JANNA: 12/30/[address] [facility] [address]: Rick Barr MD REQ: [id number] RECD: 12/30/18 STATUS: KASSI SALINAS DR: Prasad Shah MD _ SOURCE: BLOOD,VENO SPDES: ORDERED: Blood Cult Procedure Result Reported Site Aerobic Culture Bottle Final 01/04/19- 040 ML No Growth Day 5 Anaerobic Culture Bottle Final 01/04/19- 358 ML No Growth Day 5 * ML - Main Lab . END OF REPORT DEPARTMENT OF PATHOLOGY, [address] [place] [address] Jesse Ku M.D. Director [facility] # [id number] 5 Because ethnic data is not always [...] failure <15 (or dialysis) 6 [facility] Severe Sepsis and Septic Shock Management Bundle Measure requires all lactic acids initially measuring >2.0 mmol/L be repeated. 7 Beamer Operator: [id number] 8 Because ethnic data is not always [...] confidence interval of 99.78 to 99.96%. 10 Beamer Operator: [id number] 11 SEE RESULT BELOW Name: NATALIE TREVINO : [address]: Rick Barr MD Acct: [id number] Unit: [id number] AGE: 48 Location: ED Re12/04/18 SEX: M Status: REG ER SPEC: [id number] JANNA: 12/04/[address] [facility] [address]: Rick Barr MD REQ: [id number] RECD: 12/04/18 STATUS: KASSI SALINAS DR: Prasad Shah MD _ SOURCE: NASAL SPDESC: ORDERED: Flu A B Request Procedure Result Reported Site Rapid Influenza A B Request Final 12/04/18- 0246 ML Specimen received for Influenza A/B Molecular testing * ML - Main Lab . END OF REPORT DEPARTMENT OF PATHOLOGY, [address] [place] [address] Jesse Ku M.D. Director [facility] # [id number] Procedures Date Code Description Status 05/29/2019 16371 Injection Subcutaneous Or Intramuscular Completed 02/27/2019 12581 Injection Subcutaneous Or Intramuscular Completed 02/21/2019 01415 Injection Subcutaneous Or Intramuscular Completed 01/04/2019 60535 Pulse Oximetry Completed Medical Devices Description No [...] Encounter for immunization Office Visit 02/21/2019 1:15p [facility] Office Nga Wright J18.9 Pneumonia, JOSE L [...] 06/02/2019 J44.0 Chronic obstructive pulmonary disease Bhaskar oMlina-Alem with (acute) lower respiratory infection 06/02/2019 R10.30 Lower abdominal pain, unspecified Foleynp-C 05/29/2019 J18.9 Pneumonia, unspecified organism Nga Chin [...] J45.901 Unspecified asthma with (acute) Nga Chin, INDEPENDENT JEWELER exacerbation 01/20/2019 M25.511 Pain in right shoulder [...] Shah M.D. Plan of Treatment 06/02/2019 - Libby Molina05 CoughFollow up:Followup:. (Follow up) J44.0 Chronic obstructive pulmonary disease with (acute) lower respiratory vjxnleatdF96.30 Lower abdominal pain, unspecifiedFollow up:Followup:. (Follow up [...] efforts I reviewed your labs with Dr Herrmann , the f=increased white count may be due to the prednisone f/u if no better through week and routine with pcp Functional Status Description No Information Available Mental Status Description No Information Available Referrals Description No Information Available
[2019-07-31] MEDS ORDERED: Albuterol HFA INHALER* 8 gm MDI INH ONE (16:51)
[2019-07-31] MEDS ORDERED: Ibuprofen TAB* 800 MG PO ONE (16:52)
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
[2019-07-31] MEDS ORDERED: Ketorolac *IM* INJ* 60 MG/2 ML VIAL IM ONE (19:25)
[2019-07-31 19:49] VITALS: BP 144/68
== END 2019-07-31 19:48 | disposition home or self-care (01) ==
LOC: ED 16:08
DX: S80.12XA Contusion of left lower leg, initial encounter (principal); G43.909 Migraine, unspecified, not intractable, without status migrainosus; K59.00 Constipation, unspecified; J06.9 Acute upper respiratory infection, unspecified; Y04.2XXA Assault by strike against or bumped into by another person, initial encounter; Y92.003 Bedroom of unspecified non-institutional (private) residence as the place of occurrence of the external cause; F41.9 Anxiety disorder, unspecified; F90.9 Attention-deficit hyperactivity disorder, unspecified type; F32.9 Major depressive disorder, single episode, unspecified; Z90.89 Acquired absence of other organs; F17.210 Nicotine dependence, cigarettes, uncomplicated; Z88.0 Allergy status to penicillin
CPT/HCPCS: 96372; 99282; A9270-GY; J1885

== ENCOUNTER 2019-08-25 16:46 | Emergency (ER) | payer MEDICARE ==
[2019-08-25 18:44] VITALS: BP 126/69
[2019-08-25] MEDS ORDERED: Oseltamivir CAP* 75 MG CAP PO ONE (20:53)
[2019-08-25] MEDS ORDERED: Albuterol/Ipratropium NEB.SOL* Albuterol 2.5 MG/Ipratropium 0.5 MG 3 ML INH ONE (20:53)
[2019-08-25] MEDS ORDERED: Lidocaine 1% MPF ** 5 ML VIAL IM ONE (20:54)
[2019-08-25] MEDS ORDERED: cefTRIAXone VIAL(*) 500 MG VIAL IM ONE (20:54)
--- NOTE | 2019-08-25 20:56 | ED ---
Complex/Multi-Sys Presentation - HPI Summary HPI Summary: This pt is a 49 y/o male presenting to [facility] c/o cough, SOB, body aches, fever, chills, and sweats for the past 4 days. Pt reports he has pneumonia again. He notes he has a nonproductive cough, with body aches from head to toe, and "agonizing" pain. Pt additionally reports he has seizures and convulsions, for which he takes CBD oil. Denies sick contacts. Pt notes he has taken Dayquil and Nyquil and has slept for "5 days straight." Pt reports he has taken Rocephin in the past for pneumonia and this seemed to have worked the best and had a long period of relief. He admits to tobacco use. His PCP is Dr. Shah. - History Of Current Complaint Chief Complaint: EDFluSymptoms Time Seen by Provider: 08/25/19 20:46 Hx Obtained From: Patient Onset/Duration: Lasting Days, Still Present Timing: Days Severity Currently: Moderate Location: Pain At: - from head to toe Aggravating Factor(s): nothing Alleviating Factor(s): nothing Associated Signs And Symptoms: Positive: SOB, Cough, Fever, Other - POSITIVE: chills, diaphoresis, myalgia. Negative: Chest Pain, Nausea, Vomiting, Abdominal Pain, Dysuria - Allergies/Home Medications Allergies/Adverse Reactions: Allergies Allergy/AdvReac Type Severity Reaction Status Date / Time Penicillins Allergy Unknown Verified 08/25/19 16:50 Reaction Details shellfish derived Allergy Unknown Verified 08/25/19 16:50 Reaction Details PMH/Surg Hx/FS Hx/Imm Hx Endocrine/Hematology History: Denies: Hx Anticoagulant Therapy, Hx Diabetes, Hx Thyroid Disease Cardiovascular History: Denies: Hx Congestive Heart Failure, Hx Deep Vein Thrombosis, Hx Hypertension , Hx Myocardial Infarction, Hx Pacemaker/ICD Respiratory History: Reports: Hx Asthma - Albuterol inhaler episodically. Denies: Hx Chronic Obstructive Pulmonary Disease (COPD), Hx Lung Cancer, Hx Pneumonia, Hx Pulmonary Embolism GI History: Reports: Other GI Disorders - Hepatitis B Denies: Hx Gall Bladder Disease, Hx Gastrointestinal Bleed, Hx Ulcer, Hx Urosepsis History: Denies: Hx Kidney Stones, Hx Renal Disease Musculoskeletal History: Reports: Hx Fibromyalgia - 2005 ER visit for medication Sensory History: Reports: Hx Contacts or Glasses Denies: Hx Deafness, Hx Hearing Aid Opthamlomology History: Reports: Hx Contacts or Glasses Neurological History: Reports: Hx Headaches, Hx Migraine Denies: Hx Dementia, Hx Seizures, Hx Transient Ischemic Attacks (TIA) Psychiatric History: Reports: Hx Anxiety, Hx Attention Deficit Hyperactivity Disorder, Hx Depression, Hx Community Mental Health Tx - seen at [facility], Hx Schizophrenia Denies: Hx Eating Disorder, Hx Panic Disorder, Hx of Violent Episodes Against Others - Surgical History Surgical History: Yes Surgery Procedure, Year, and Place: Appendectomy, HERNIA REPAIR Hx Anesthesia Reactions: No - Immunization History Date of Tetanus Vaccine: pt states w/in last 10 years Date of Influenza Vaccine: 2013 Infectious Disease History: No Infectious Disease History: Denies: Hx Clostridium Difficile, Hx Hepatitis, Hx Human Immunodeficiency Virus (HIV), Hx of Known/Suspected MRSA, Hx Shingles, Hx Tuberculosis, Hx Known/ Suspected VRE, Hx Known/Suspected VRSA, History Other Infectious Disease, Traveled Outside the [place] in Last 30 Days - Family History Known Family History: Positive: Hypertension, Other - Cancer in father. Mother has Alzheimers - Social History Alcohol Use: Occasionally Alcohol Amount: 1-2 a day, has desire to quit Hx Substance Use: Yes Substance Use Type: Reports: Marijuana Substance Use Comment - Amount & Last Used: drinks coffee and tea, marijuana weekly Hx Tobacco Use: Yes Smoking Status (MU): Heavy Every Day Tobacco Smoker Type: Cigarettes Amount Used/How Often: 1 ppd Length of Time of Smoking/Using Tobacco: 25 years Have You Smoked in the Last Year: Yes Review of Systems Positive: Fever, Chills, Skin Diaphoresis Negative: Erythema Negative: Sore Throat Negative: Chest Pain Positive: Shortness Of Breath, Cough Negative: Abdominal Pain, Vomiting, Nausea Negative: dysuria, hematuria Positive: Myalgia. Negative: Edema Negative: Rash Neurological: Other - NEGATIVE: dizziness. POSITIVE: seizures, convulsions All Other Systems Reviewed And Are Negative: Yes Physical Exam - Summary Physical Exam Summary: Constitutional: Well-developed, Well-nourished, Alert. (-) Distressed, Nontoxic. Skin: Warm, Dry HENT: Normocephalic; Atraumatic Eyes: Conjunctiva normal Neck: Musculoskeletal ROM normal neck. (-) JVD, (-) Stridor, (-) Tracheal deviation Cardio: Rhythm regular, rate normal, Heart sounds normal; Intact distal pulses; The pedal pulses are 2+ and symmetric. Radial pulses are 2+ and symmetric. (-) Murmur Pulmonary/Chest wall: Effort normal. (-) Respiratory distress, (-) Rales. Inspiratory and expiratory wheezes. Abd: Soft, (-) tenderness, (-) Distension, (-) Guarding, (-) Rebound Musculoskeletal: (-) Edema Lymph: (-) Cervical adenopathy Neuro: Alert, Oriented x3 Psych: Mood and affect Normal Triage Information Reviewed: Yes Vital Signs On Initial Exam: Initial Vitals Temp Pulse Resp BP Pulse Ox 98.3 F 86 19 113/67 91 08/25/19 16:47 08/25/19 16:47 08/25/19 16:47 08/25/19 16:47 08/25/19 16:47 Vital Signs Reviewed: Yes Procedures - Sedation Patient Received Moderate/Deep Sedation with Procedure: No Diagnostics - Vital Signs Vital Signs Temp Pulse Resp BP Pulse Ox 08/25/19 18:43 98.9 F 77 20 126/69 92 08/25/19 16:47 98.3 F 86 19 113/67 91 - Laboratory Lab Statement: Any lab studies that have been ordered have been reviewed, and results considered in the medical decision making process. - Radiology Chest XR Radiology Interpretation Completed By: Radiologist Summary of Radiographic Findings: IMPRESSION: Questionable patchy infiltrate at the lateral right lower lung which could be pneumonia in the correct clinical setting. Dr. Robbins has reviewed this report. Re-Evaluation - Re-Evaluation First Eval Re-Evaluation Time: 22:30 Change: Unchanged - Patient's not happy about being discharged, his oximetry is normal, he lists off multitude of unrelated complaints including whole-body pain , seizures and twitches that he has had he reports having had for years, the 3 year course of pneumonia that he's been treated intermittently for by his primary care, he demonstrates no actual evidence that he's had a seizure. There is wheezing and cough as been treated tonight, I'm also treating him empirically for influenza in the event that his whole-body pain and respiratory symptoms are related to flu. I did encourage him multiple times to follow up with his primary care physician. Complex Multi-Symp Course/Dx Assessment/Plan: Pt is a 49 y/o male presenting to [facility] c/o cough, SOB, body aches, fever, chills, and sweats for the past 4 days. Pt reports he has pneumonia again. He notes he has a nonproductive cough, with body aches from head to toe, and "agonizing" pain. Pt additionally reports he has seizures and convulsions, for which he takes CBD oil. Denies sick contacts. Pt notes he has taken Dayquil and Nyquil and has slept for "5 days straight.". Signs and symptoms consistent with the flu. Patient is nontoxic. Chest XR shows Questionable patchy infiltrate at the lateral right lower lung which could be pneumonia in the correct clinical setting. In the ED course the pt received duoneb, Rocephin, lidocaine, Tamiflu, prednisone. Pt will be discharged home with follow up from Dr. Shah in 2 days. Given his recurrent pneumonia he should be rule out for lung mass and this should be followed up as an outpatient with his PCP. - Diagnoses Provider Diagnoses: Bronchitis, Influenza, Pneumonia Discharge ED - Sign-Out/Discharge Documenting (check all that apply): Patient Departure - Discharge home - Discharge Plan Condition: Stable Disposition: HOME Prescriptions: Albuterol HFA INHALER* [Ventolin HFA Inhaler*] 1 puff INH Q4H PRN #1 mdi PRN Reason: Wheezing Azithromycin TAB* [Zithromax TAB (Z-ANN) 250 mg #6 tabs] 2 tab PO .TODAY, THEN 1 DAILY #1 ann Oseltamivir CAP* [Tamiflu CAP*] 75 mg PO BID #10 cap predniSONE TAB* [Deltasone 20 MG TAB*] 20 mg PO DAILY #4 tab Patient Education Materials: Influenza (ED), Acute Bronchitis (ED), Pneumonia ( ED) Referrals: Prasad Shah MD [Primary Care Provider] - Additional Instructions: Follow up with your primary care provider, Dr. Shah, in 2 days. With recurrent pneumonia you should be ruled out for a lung mass and this should be done as an outpatient with your primary care provider. RETURN TO THE EMERGENCY DEPARTMENT FOR CHANGING OR WORSENING SYMPTOMS. - Billing Disposition and Condition Condition: STABLE Disposition: Home - Attestation Statements Document Initiated by Scribe: Yes Documenting Scribe: Viviane Frazier Provider For Whom Scribe is Documenting (Include Credential): Barrett Robbins MD Scribe Attestation: I, Viviane Frazier, scribed for Barrett Robbins MD on 08/25/19 at 2230. Scribe Documentation Reviewed: Yes Provider Attestation: The documentation as recorded by the scribeViviane accurately reflects the service I personally performed and the decisions made by me, Barrett Robbins MD Status of Scribe Document: Viewed
[2019-08-25] MEDS ORDERED: Acetaminophen TAB* 325 MG PO ONE (22:02)
== END 2019-08-25 23:30 | disposition home or self-care (01) ==
LOC: ED 16:46
DX: J18.9 Pneumonia, unspecified organism (principal); J40 Bronchitis, not specified as acute or chronic; J11.1 Influenza due to unidentified influenza virus with other respiratory manifestations; F41.9 Anxiety disorder, unspecified; F90.9 Attention-deficit hyperactivity disorder, unspecified type; F32.9 Major depressive disorder, single episode, unspecified; Z90.89 Acquired absence of other organs; F17.210 Nicotine dependence, cigarettes, uncomplicated; Z88.0 Allergy status to penicillin
CPT/HCPCS: 71046; 96372; 99283; A9270-GY; J0696; J7512

== ENCOUNTER 2019-10-25 16:10 | Emergency (ER) | payer MEDICARE, MEDICAID ==
[2019-10-25 18:53] LABS: Influenza A Molecular Negative (Negative); Influenza B Molecular Negative (Negative)
[2019-10-25 19:11] VITALS: BP 0/0
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
== END 2019-10-25 19:10 | disposition home or self-care (01) ==
LOC: ED 16:10
DX: R52 Pain, unspecified (principal); J45.909 Unspecified asthma, uncomplicated; M79.7 Fibromyalgia; F41.9 Anxiety disorder, unspecified; F90.9 Attention-deficit hyperactivity disorder, unspecified type; F20.9 Schizophrenia, unspecified; F32.9 Major depressive disorder, single episode, unspecified; F17.210 Nicotine dependence, cigarettes, uncomplicated; Z90.89 Acquired absence of other organs; Z88.0 Allergy status to penicillin; Z79.899 Other long term (current) drug therapy
CPT/HCPCS: 99282

== ENCOUNTER 2019-11-26 02:04 | Emergency (ER) | payer MEDICARE, MEDICAID ==
[2019-11-26] MEDS ORDERED: Albuterol/Ipratropium NEB.SOL* Albuterol 2.5 MG/Ipratropium 0.5 MG 3 ML INH ONE (05:44)
[2019-11-26] MEDS ORDERED: Acetaminophen TAB* 325 MG PO ONE (05:45)
--- NOTE | 2019-11-26 05:58 | ED ---
Respiratory - HPI Summary HPI Summary: Patient is a 49-year-old male who presents emergency department for cough and shortness of breath times several days. Patient is a history of COPD and is a current daily smoker. Patient denies sick contacts or recent travel. Patient states he was out of his inhaler and presents to the ER for evaluation. Symptoms are moderate in severity. No current modifying factors. - History of Current Complaint Chief Complaint: EDShortnessOfBreath Stated Complaint: SOB PER PT Time Seen by Provider: 11/26/19 05:40 Hx Obtained From: Patient Pain Intensity: 8 - Allergy/Home Medications Allergies/Adverse Reactions: Allergies Allergy/AdvReac Type Severity Reaction Status Date / Time Penicillins Allergy Unknown Verified 11/26/19 05:52 Reaction Details shellfish derived Allergy Unknown Verified 11/26/19 05:52 Reaction Details Home Medications: Home Medications Gabapentin TAB(NF) [Neurontin 600 mg TAB(NF)] 600 mg PO TID 12/18/16 [History Confirmed 11/26/19] Amphetamine MIXED SALT TAB* [Adderall TAB*] 20 mg PO TID 12/04/18 [History Confirmed 11/26/19] Cyclobenzaprine HCl 10 mg PO BEDTIME PRN 12/04/18 [History Confirmed 11/26/19] Butalb/Acetamin/Caff TAB* [Fioricet TAB*] 1 tab PO Q4H PRN 12/30/18 [History Confirmed 11/26/19] Hydrocodone/Acetaminophen [Hydrocodone-Acetamin 5-325 mg] 1 tab PO QID PRN 12/30 [History Confirmed 11/26/19] OLANZapine [Zyprexa Zydis] 5 mg PO BEDTIME 12/30/18 [History Confirmed 11/26/19] Sildenafil (NF) [Viagra (NF)] 50 mg PO ONCE PRN 12/30/18 [History Confirmed 08/06] Escitalopram * [Lexapro *] 20 mg PO DAILY 02/28/19 [History Confirmed 11/26/19] SUMAtriptan TAB* [Imitrex TAB*] 100 mg PO ONCE PRN MDD 2 tabs 02/28/19 [History Confirmed 11/26/19] Sulfamethox/Trimethoprim DS* [Bactrim DS 800/160 TAB*] 1 tab PO BID 04/21/19 [ History Confirmed 11/26/19] hydrOXYzine HCL TAB* [Atarax 25 MG TAB*] 25 mg PO QID PRN 04/21/19 [History Confirmed 11/26/19] Albuterol HFA INHALER* [Ventolin HFA Inhaler*] 2 puff INH Q6H PRN #1 mdi [Rx] Albuterol/Ipratropium NEB.LINCOLN* [Duoneb (Albuterol 2.5 MG/Ipratropium 0.5 MG)] 1 neb INH Q6H PRN #30 neb.lincoln 11/26/19 [Rx] Budesonide/Formote 80/4.5(NF) [Symbicort 80/4.5 (NF)] 2 puff INH BID PRN [History Confirmed 11/26/19] Cannabidiol (CBD) Extract (NF) [Epidiolex (NF)] 100 mg PO . DIRECTED 11/26/19 [History Confirmed 11/26/19] Eszopiclone (NF) [Lunesta (NF)] 3 mg PO BEDTIME PRN 11/26/19 [History Confirmed 11/26/19] Fexofenadine (NF) [Saniya 180 (NF)] 180 mg PO DAILY PRN 11/26/19 [History Confirmed 11/26/19] Fluconazole 100 MG TAB* [Diflucan 100 MG TAB*] 100 mg PO DAILY 11/26/19 [ History Confirmed 11/26/19] Ibuprofen TAB* [Motrin TAB* 800 MG] 800 mg PO TID PRN 11/26/19 [History Confirmed 11/26/19] Ketoconazole 2 % CREAM (NF) [Nizoral 2% CREAM (NF)] 1 applic TOPICAL DAILY 11/25 [History Confirmed 11/26/19] Mupirocin 2% OINT* [Bactroban 2 % Oint*] 1 applic TOPICAL TID 11/26/19 [History Confirmed 11/26/19] Nystatin SUSPENSION ORAL SYR* 5 ml SWISH SWAL QID 11/26/19 [History Confirmed ] OLANZapine [Zyprexa Zydis] 10 mg PO BID 11/26/19 [History Confirmed 11/26/19] Ondansetron ODT TAB* [Zofran 4 MG Odt TAB*] 4 mg PO QID PRN 11/26/19 [History Confirmed 11/26/19] Pantoprazole TAB * [Protonix TAB*] 40 mg PO DAILY PRN 11/26/19 [History Confirmed 11/26/19] Spironolactone/HCTZ 25-25 MG* [Aldactazide 25-25*] 1 tab PO DAILY 11/26/19 [ History Confirmed 11/26/19] Tretinoin/Emollient Base [Tretinoin Emollient] 0.05 % TOPICAL BEDTIME 11/26/19 [ History Confirmed 11/26/19] clonazePAM TAB(*) [Klonopin TAB(*)] 1 mg PO QID PRN 11/26/19 [History Confirmed 11/26/19] methylPREDNISolone [Medrol Dosepak 4 MG*] 0 mg PO .SEE ANN INSTRUCTION #1 tab [Rx] PMH/Surg Hx/FS Hx/Imm Hx Previously Healthy: Yes Endocrine/Hematology History: Denies: Hx Anticoagulant Therapy, Hx Diabetes, Hx Thyroid Disease Cardiovascular History: Denies: Hx Congestive Heart Failure, Hx Deep Vein Thrombosis, Hx Hypertension , Hx Myocardial Infarction, Hx Pacemaker/ICD Respiratory History: Reports: Hx Asthma - Albuterol inhaler episodically. Denies: Hx Chronic Obstructive Pulmonary Disease (COPD), Hx Lung Cancer, Hx Pneumonia, Hx Pulmonary Embolism GI History: Reports: Other GI Disorders - Hepatitis B Denies: Hx Gall Bladder Disease, Hx Gastrointestinal Bleed, Hx Ulcer, Hx Urosepsis History: Denies: Hx Kidney Stones, Hx Renal Disease Musculoskeletal History: Reports: Hx Fibromyalgia - 2005 ER visit for medication Sensory History: Reports: Hx Contacts or Glasses Denies: Hx Deafness, Hx Hearing Aid Opthamlomology History: Reports: Hx Contacts or Glasses Neurological History: Reports: Hx Headaches, Hx Migraine Denies: Hx Dementia, Hx Seizures, Hx Transient Ischemic Attacks (TIA) Psychiatric History: Reports: Hx Anxiety, Hx Attention Deficit Hyperactivity Disorder, Hx Depression, Hx Community Mental Health Tx - seen at [facility], Hx Schizophrenia Denies: Hx Eating Disorder, Hx Panic Disorder, Hx of Violent Episodes Against Others - Surgical History Surgery Procedure, Year, and Place: Appendectomy, HERNIA REPAIR Hx Anesthesia Reactions: No - Immunization History Date of Tetanus Vaccine: pt states w/in last 10 years Date of Influenza Vaccine: 2013 Infectious Disease History: No Infectious Disease History: Denies: Hx Clostridium Difficile, Hx Hepatitis, Hx Human Immunodeficiency Virus (HIV), Hx of Known/Suspected MRSA, Hx Shingles, Hx Tuberculosis, Hx Known/ Suspected VRE, Hx Known/Suspected VRSA, History Other Infectious Disease, Traveled Outside the [place] in Last 30 Days - Family History Known Family History: Positive: Hypertension, Other - Cancer in father. Mother has Alzheimers, Non-Contributory - Social History Occupation: Disabled Lives: With Family Alcohol Use: None Alcohol Amount: 1-2 a day, has desire to quit Hx Substance Use: Yes Substance Use Type: Reports: Marijuana Substance Use Comment - Amount & Last Used: Rarely Hx Tobacco Use: Yes Smoking Status (MU): Heavy Every Day Tobacco Smoker Type: Cigarettes Amount Used/How Often: 1 ppd Length of Time of Smoking/Using Tobacco: 25 years Have You Smoked in the Last Year: Yes Review of Systems Positive: Chills. Negative: Fever Positive: Nasal Discharge Cardiovascular: Negative Positive: Shortness Of Breath, Cough Gastrointestinal: Negative Positive: Myalgia Skin: Negative Neurological/Mental Status: Negative All Other Systems Reviewed And Are Negative: Yes Physical Exam Triage Information Reviewed: Yes Vital Signs On Initial Exam: Initial Vitals Temp Pulse Resp BP Pulse Ox 98.4 F 61 20 118/85 92 11/26/19 02:06 11/26/19 02:06 11/26/19 02:06 11/26/19 02:06 11/26/19 02:06 Vital Signs Reviewed: Yes Appearance: Positive: Well-Appearing - Patient sitting in bed in no acute distress. Breathing easily on room air. Skin: Positive: Warm, Dry Head/Face: Positive: Normal Head/Face Inspection Eyes: Positive: Normal, EOMI, NAIN ENT: Positive: Pharynx normal, TMs normal Neck: Positive: Supple Respiratory/Lung Sounds: Positive: Other - Diffuse inspiratory expiratory wheeze throughout. No accessory muscle use. No stridor. Cardiovascular: Positive: Normal, RRR Neurological: Positive: Normal, CN Intact II-III Psychiatric: Positive: Affect/Mood Appropriate Procedures - Sedation Patient Received Moderate/Deep Sedation with Procedure: No Diagnostics - Vital Signs Vital Signs Temp Pulse Resp BP Pulse Ox 11/26/19 05:55 97.4 F 11/26/19 05:52 56 94 11/26/19 05:51 53 132/85 94 11/26/19 04:23 99 F 61 22 110/75 88 11/26/19 02:06 98.4 F 61 20 118/85 92 - Laboratory Lab Statement: Any lab studies that have been ordered have been reviewed, and results considered in the medical decision making process. Disposition - Course Course Of Treatment: Patient with cough and shortness of breath. Afebrile. Oxygen saturation 80% on patient came back from triage. O2 improved to low 90s. Patient started on breathing treatment. By mouth prednisone given. Chest x-ray negative for acute findings per radiology. Negative influenza. Patient feeling better after medication. Ambulated in the ER with pulse ox and oxygen are made in the mid 90s. We'll discharge home on a course of redness old. Albuterol. Patient to call family doctor today for close follow-up and return to the ER symptoms change or worsen. Patient understands and agrees with plan. - Differential Dx - Cardiopulmonary Differential Diagnoses - Cardiopulmonary: Asthma, Bronchitis, Exacerbation Of COPD - Diagnoses Provider Diagnoses: Acute bronchitis, Bronchospasm, Cough Discharge ED - Sign-Out/Discharge Documenting (check all that apply): Patient Departure - Discharge Plan Condition: Improved Disposition: HOME Prescriptions: Albuterol HFA INHALER* [Ventolin HFA Inhaler*] 2 puff INH Q6H PRN #1 mdi PRN Reason: Wheezing Albuterol/Ipratropium NEB.LINCOLN* [Duoneb (Albuterol 2.5 MG/Ipratropium 0.5 MG)] 1 neb INH Q6H PRN #30 neb.lincoln PRN Reason: Wheezing methylPREDNISolone [Medrol Dosepak 4 MG*] 0 mg PO .SEE ANN INSTRUCTION #1 tab Patient Education Materials: Acute Bronchitis (ED) Referrals: Prasad Shah MD [Primary Care Provider] - Additional Instructions: Please see PCP in 2-3 days for recheck Medication as directed Avoid smoking Increase fluids and rest Return to ER if symptoms change or worsen - Billing Disposition and Condition Condition: IMPROVED Disposition: Home
[2019-11-26 06:39] LABS: Influenza A Molecular Negative (Negative); Influenza B Molecular Negative (Negative)
[2019-11-26 07:57] VITALS: BP 145/94
== END 2019-11-26 07:50 | disposition home or self-care (01) ==
LOC: ED 02:04
DX: J20.9 Acute bronchitis, unspecified (principal); J45.909 Unspecified asthma, uncomplicated; M79.7 Fibromyalgia; Z79.51 Long term (current) use of inhaled steroids; Z79.899 Other long term (current) drug therapy; Z88.0 Allergy status to penicillin; Z91.013 Allergy to seafood; F17.210 Nicotine dependence, cigarettes, uncomplicated
CPT/HCPCS: 71046; 93005; 99283; A9270-GY; J7512

== ENCOUNTER 2020-01-04 21:46 | Emergency (ER) | payer MEDICAID, MEDICARE ==
[2020-01-04 21:52] VITALS: BP 123/87
--- OUTSIDE RECORDS SUMMARY | 2020-01-04 21:57 | XMS REPORT | Continuity of Care Document ---
:1970 External Reference #:[id number] Author Name Prasad Shah M.D. (transmitted by agent of provider Olga Saunders) Address [address] [place] [address] Care Team Providers Name Role Phone Prasad Shah - Family Medicine Care Team Information [employer] [phone] Yvrose Augustine - Dermatology Care Team Information [employer] Problems Active Problems Provider Date Myalgia & [...] Chest pain Prasad Shah M.D. Onset: 01/20/2019 Edema Prasad Shah M.D. Onset: 08/01/2019 Candidiasis of mouth Prasad Shah M.D. Onset: 08/01/2019 Constipation Prasad Shah M.D. Onset: 08/01/2019 Anemia Prasad Shah M.D. Onset: 08/01/2019 Dyspnea on exertion Prasad Shah M.D. Onset: 08/01/2019 Other ascites Prasad Shah M.D. Onset: 08/01/2019 Social History Type Date Description Comments Sex [...] Medications SIG Qnty Indications Ordering Date Provider Pregabalin take 1 to 2 60caps M79.7 Prasad Klein 12/26/2019 100mg Capsules capsules by mouth Blake Shah at bedtime for pain Hydrocodone-Acetaminop 1 by mouth four 120tabs Prasad Klein 10/08/2019 hen times a day as Blake Shah 5-325mg Tablets needed pain Symbicort Inhale 2 Puffs By 10.2units Prasad Klein 09/22/2019 80-4.5mcg/Act Mouth Twice Daily Blake Shah Aerosol as Needed Fluconazole take 2 tablets on 15tabs B37.0 Prasad TJuani 09/05/2019 100mg Tablets day one then 1 Blake Shah tablet daily for oral thrush Ondansetron take one tablet 30tabs Prasad TJuani 08/28/2019 4mg Tablets by mouth four Margaret ShahDJuani Dispers times a day as needed for nausea Nystatin swish and swallow 180ml B37.0 Prasad TJuani 08/01/2019 [id number] 5ml 4 times a day Blake Shah Suspension for thrush Spironolactone/Hydroch 1 by mouth Once a 60tabs R60.1 Prasad T. 08/01/2019 lorothiazide day for fluid Midura, M.D. 25-25mg retention Tablets Tretinoin apply to affected 45units Prasad TJuani 07/21/2019 0.05% Cream area at bedtime Midura, M.D. if needed Mupirocin apply topically 22gm S01.302A Nga Wright 03/08/2019 2% Ointment three times a day JOSE L Chin to affected area(s) Eszopiclone take 1 tablet by 30tabs Kurt Klein 01/31/2019 3mg Tablets mouth at bedtime MD Amandeep as needed for sleep. Cyclobenzaprine HCL take 1 tablet by 30tabs Prasad T. 09/05/2018 10mg mouth at bedtime Midura, M.D. Tablets as needed for muscle spasm Clonazepam 1 tab four times 120tabs Prasad T. 07/15/2018 1mg Tablets a day a day as Midura, M.D. needed Sumatriptan Succinate Take 1 Tablet By 9tabs Prasad T. 07/09/2018 Mouth Immediately Midura, M.D. 100mg Tablets And May Repeat After 2 Hours Maximum Daily Dose Is 2 Tablets Sulfamethoxazole/Trime Take 1 Tablet By 60tabs J40 Prasad T. 07/06/2018 thoprim DS Mouth Skin Twice Midura, M.D. 800-160mg Daily For Tablets Infection Escitalopram Oxalate Take 1 Tablet By 90tabs F34.1 Prasad T. 07/04/2018 20mg Mouth Daily For Midura, M.D. Tablets Anxiety Or Depression Ibuprofen 1 three times a 270tabs Nga Wright 10/22/2017 800mg Tablets day as needed JOSE L Chin with food Ketoconazole apply to rash 30gm Prasad TJuani 10/09/2017 2% Cream every day Midura, M.D. Hydroxyzine HCL take 1 tablet by 120tabs Prasad T. 09/15/2017 25mg mouth four times Midura, M.D. Tablets daily as needed for allergies Butalbital/Acetaminoph take 1 tablet by 120tabs G43.909 Prasad T. 07/17/2017 en/Caffeine mouth every 4 Midura, M.D. 50-325-40mg hours as needed Tablets for headache. G44.209 Pantoprazole Sodium Take 1 Tablet By 90tabs Prasad Shah, 10/04/2015 40mg Mouth Once Daily If M.D. Tablets DR Needed For Acid Reflux Gabapentin take 1 tablet by 90tabs Prasad Shah, 11/16/2014 600mg Tablets mouth once daily M.D. Olanzapine take 1 tablet by 90tabs F31.9 Prasad Shah, 11/11/2013 5mg Tablets mouth at bedtime M.D. Zyprexa Zydis Dissolve 1 Tablet 60tabs F31.9 Prasad Shah, 09/01/2010 10mg Tablets On The Tongue Twice M.D. Dispers Daily F20.3 Ventolin HFA Inhale 2 Puffs By 36units Prasad Shah, 11/23/2008 108(90Base) Mouth Every 6 Hours M.D. mcg/Act Aerosol as Needed Saniya Allergy 1 by mouth every day 30tabs Prasad Shah, 180mg Tablets as needed for M.D. allergies Adderall 1 by mouth 3 times a Unknown 20mg Tablets day CBD Oil Unknown History Medications Doxycycline Hyclate 1 by mouth twice 20caps Prasad Klein 12/08/2019 - 100mg a day Blake Shah 12/26/2019 Capsules Acetaminophen-Codeine #3 take one to two 56tabs M79.7 Kurt Klein 2018 - tablets every 6 Amandeep, 10/07/2019 300-30mg Tablets hours as needed for pain Methylprednisolone as directed for 1Pryder J20.9 Prasad Klein 08/26/2019 - 4mg TBPK inflamation Blake Shah 09/05/2019 Symbicort inhale two puffs 10.2units Prasad Klein 07/29/2019 - 80-4.5mcg/Act by mouth twice a Blake Shah 09/05/2019 Aerosol day as needed Medications Administered in Office Medication SIG Qnty Indications Ordering Provider Date Injection Rocephrin 250 MG Prasad Shah M.D. 08/26/2019 Injection Injection Subcutaneous Or Prasad Shah M.D. 08/26/2019 Intramuscular Injection Injection Rocephrin 250 MG Nga Chin, COMMUNITY WORKER 05/29/2019 Injection Injection Subcutaneous Or Nga Chin, COMMUNITY WORKER 05/29/2019 Intramuscular Injection Injection Rocephrin 250 MG Nga Chin, COMMUNITY WORKER 02/27/2019 Injection Injection Subcutaneous Or Nga Chin, COMMUNITY WORKER 02/27/2019 Intramuscular Injection Injection Rocephrin 250 MG Nga Chin, COMMUNITY WORKER 02/21/2019 Injection Injection Subcutaneous Or Nga Chin, COMMUNITY WORKER 02/21/2019 Intramuscular Injection Immunizations CPT Code Status Date Vaccine Lot # 54101 Given 02/27/2019 Tdap Tetanus, W Pertussis [id number] 50135 Given 08/21/2005 DO Not Use Split Influenza Virus Vaccine 71213 Given 08/02/2001 Influenza Immunization 67348 Given 08/02/2001 DO Not Use Split Influenza Virus Vaccine 92981 Given 08/31/2000 Influenza Immunization 89793 Given 08/31/2000 DO Not Use Split Influenza Virus Vaccine Vital Signs Date Vital Result Comment 09/05/2019 11:30am BP Systolic 136 mmHg BP Diastolic 96 mmHg Heart Rate 93 /min Body Temperature 98.1 F Respiratory Rate 18 /min O2 % BldC Oximetry 95 % Height 71 inches 5'11" Weight 211.00 lb BMI (Body Mass Index) 29.4 kg/m2 08/26/2019 5:29pm BP Systolic 122 mmHg BP Diastolic 68 mmHg Heart Rate 80 /min Body Temperature 97.9 F Respiratory Rate 20 /min Weight 213.00 lb Results Test Acquired Date Facility Test Result H/L Range Note Influenza A & B 11/26/2019 [facility] Flu AB Disclaimer (SEE NOTE) 1 Request Influenza A Molecular Negative Negative Influenza B Molecular Negative Negative 2 Influenza A & B Request 10/25/2019 [facility] Flu AB Disclaimer (SEE NOTE) 3 Influenza A Molecular Negative Negative Influenza B Molecular Negative Negative 4 Iron And 08/01/2019 [facility] Iron Bind.Cap.([facility]) 327 g/dL 250-450 5 [facility] [address] [place] [address] (607)- - [facility] 240 g/dL 111-343 Iron 87 g/dL 38-169 Iron Saturation 27 % 15-55 Comprehensive Metabolic 08/01/2019 [facility](fma) Sodium 140 mEq/L 134-149 Prof Potassium 5.4 mEq/L 3.6-5.5 Chloride 103 mEq/L 94-112 Carbon Dioxide 26 mEq/L 21-32 Glucose 100 mg/dL 70-105 BUN 18 mg/dL 6-26 Creatinine 1.1 mg/dL 0.6-1.4 BUN/Creat Ratio 16.4 CALC 8.0-36.0 Calcium 9.5 mg/dL 8.6-10.2 Total Protein 6.9 g/dL 6.4-8.3 Albumin 4.8 g/dL 3.8-5.5 Globulin 2.1 g/dL 2.0-4.8 A/G Ratio 2.3 CALC 0.6-2.3 Alk. Phosphatase 76 U/L 22-95 Alt (SGPT) 26 U/L 7-35 Ast (Sgot) 26 U/L 5-34 Total Bilirubin 0.5 mg/dL 0.2-1.3 GFR Non- >60 ml/min/1.73m^ >=60 GFR >60 ml/min/1.73m^ >=60 Laboratory test 08/01/2019 Micah Mendenhall([facility]) Free T4 0.67 ng/dL Low 0.75-1.54 6 finding TSH 2.19 mIU/L 0.50-6.00 Vitamin B-12 362 pg/mL 230-1050 CBC Electronic a 08/01/2019 Micah Mendenhall([facility]) WBC 10.6 x10^3/UL High 4.0-10.0 RBC 3.08 x10^6/UL Low 3.93-6.00 HGB 10.1 g/dL Low 12.0-17.0 7 HCT 32 % Low 35-50 8 MCV 102.9 fL High 80.0-95.0 MCH 33.1 pg High 25.6-32.2 MCHC 32.2 g/dL 32.2-36.0 RDW-CV 19.6 % High 11.6-14.4 PLT 277 x10^3/UL 163-400 MPV 10.3 fL 9.4-12.4 Carlos# 8.13 x10^3/UL High 1.56-6.13 Lymph# 1.35 x10^3/UL 1.18-3.74 Boundary# 0.89 x10^3/UL High 0.24-0.82 Eos # 0.1 x10^3/UL 0.0-0.5 Baso # 0.03 x10^3/UL 0.01-0.08 Carlos% 76.6 % High 34.0-70.0 Lymph % 12.7 % Low 20.0-52.0 Boundary% 8.4 % 5.0-12.0 Eos% 1.3 % 0.7-7.0 Baso% 0.3 % 0.1-1.2 Laboratory test 08/01/2019 [facility] Brain Natural 24.5 pg/mL < 100 finding (607)- - Peptide D Dimer Quant (Fma) 717 ng/mL High 0.0-400 1 Suboptimal collection technique may reduce sensitivity of test. Refer to the [employer] Test Catalog for collection information: [email or web address] As with all diagnostic procedures, the laboratory results obtained should be used in conjunction with other clinical information available to the physician, including confirmation by another method, as applicable. 2 Equipment Man: [id number] 3 Suboptimal collection technique may reduce sensitivity of test. Refer to the [employer] Test Catalog for collection information: [email or web address] As with all diagnostic procedures, the laboratory results obtained should be used in conjunction with other clinical information available to the physician, including confirmation by another method, as applicable. 4 Equipment Man: [id number] 5 SERUM 6 RESULTS VERIFIED BY REPEAT ANALYSIS 7 RESULTS VERIFIED BY REPEAT ANALYSIS 8 RESULTS VERIFIED BY REPEAT ANALYSIS Procedures Date Code Description Status 08/26/2019 69139 Injection Subcutaneous Or Intramuscular Completed 08/01/2019 88319 Electrocardiogram Complete Completed Medical Devices Description No Information Available Encounters Type Date Location Provider Dx Diagnosis Office Visit 12/29/2019 11:40a Main Office Prasad Shah M.D. 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 respiratory infection, unspecified J20.9 Acute bronchitis, unspecified R60.1 Generalized edema B37.0 Candidal stomatitis D64.9 Anemia, unspecified M79.7 Fibromyalgia Office Visit 08/26/2019 5:20p Main Office Prasad Shah, J06.9 Acute upper M.D. respiratory infection, unspecified J20.9 Acute bronchitis, unspecified Office Visit 08/01/2019 11:20a Main Office Prasad Shah, R60.1 Generalized edema M.D. R18.8 Other ascites B37.0 Candidal stomatitis K59.00 Constipation, unspecified R53.83 Other fatigue D64.9 Anemia, unspecified R06.02 Shortness of breath Assessments Date Code Description Provider 12/29/2019 M79.7 Fibromyalgia Prasad Shah M.D. 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 12/29/2019 F41.1 Generalized anxiety disorder Prasad Shah M.D. 12/26/2019 M79.7 Fibromyalgia Prasad Shah M.D. 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 12/26/2019 F41.1 Generalized anxiety disorder Prasad Shah M.D. 12/08/2019 L02.01 Cutaneous abscess of face Prasad Shah M.D. 09/05/2019 J06.9 Acute upper respiratory infection Prasad Shah M.D. 09/05/2019 J20.9 Acute bronchitis Prasad Shah M.D. 09/05/2019 R60.1 Edema Prasad Shah M.D. 09/05/2019 B37.0 Candidiasis of mouth Prasad Shah M.D. 09/05/2019 D64.9 Anemia Prasad Shah M.D. 09/05/2019 M79.7 Fibromyalgia Prasad Shah M.D. 08/26/2019 J06.9 Acute upper respiratory infection Prasad Shah M.D. 08/26/2019 J20.9 Acute bronchitis Prasad Shah M.D. 08/01/2019 R60.1 Edema Prasad Shah M.D. 08/01/2019 R18.8 Ascites Prasad Shah M.D. 08/01/2019 B37.0 Candidiasis of mouth Prasad Shah M.D. 08/01/2019 K59.00 Constipation Prasad Shah M.D. 08/01/2019 R53.83 Fatigue Prasad Shah M.D. 08/01/2019 D64.9 Anemia Prasad Shah M.D. 08/01/2019 R06.02 Dyspnea on exertion Prasad Shah M.D. Plan of Treatment 12/29/2019 - Prasad Shah M.D.M79.7 FibromyalgiaComments:OK to increase the pregabalin to 100 mg bid and reduce the gabapentin 600 mg to once daily.Follow up:Followup:. (Follow up)F20.3 Undifferentiated tlkqmkuxevtbnT70.1 Generalized anxiety disorder Functional Status Description No Information Available Mental Status Description No Information Available Referrals Description No Information Available
--- OUTSIDE RECORDS SUMMARY | 2020-01-04 21:57 | XMS REPORT | Continuity of Care Document ---
:1970 External Reference #:[id number] Author Name Prasad Shah M.D. (transmitted by agent of provider Olga Saunders) Address [address] [place] [address] Care Team Providers Name Role Phone Prasad Shah - Family Medicine Care Team Information Egg Sorter [phone] Yvrose Augustine - Dermatology Care Team Information Egg Sorter [phone] Problems Active Problems Provider Date Myalgia & [...] and swallow 180ml B37.0 Prasad TJuani 08/01/2019 379252Omxr/ML 5ml 4 times a day Blake Shah [...] 90tabs Prasad Shah, 11/16/2014 600mg Tablets mouth two times M.D. daily Olanzapine take 1 tablet by 90tabs F31.9 [...] needed for pain Methylprednisolone as directed for 1Pack J20.9 Prasad Klein 08/26/2019 - 4mg TBPK [...] Injection Injection Rocephrin 250 MG Nga Chin, POSTBED STITCHER 05/29/2019 Injection Injection Subcutaneous Or Nga Chin, JOSE L 05/29/2019 Intramuscular Injection Injection Rocephrin 250 MG Nga Chin, POSTBED STITCHER 02/27/2019 Injection Injection Subcutaneous Or Nga Chin, POSTBED STITCHER 02/27/2019 Intramuscular Injection Injection Rocephrin 250 MG Nga Chin, POSTBED STITCHER 02/21/2019 Injection Injection Subcutaneous Or Nga Chin, POSTBED STITCHER 02/21/2019 Intramuscular Injection Immunizations CPT Code Status Date Vaccine Lot # [id number] Given 02/27/2019 Tdap Tetanus, W Pertussis 525NP 50464 Given 08/21/2005 DO Not Use Split Influenza Virus Vaccine 25593 Given 08/02/2001 Influenza Immunization 53859 Given 08/02/2001 DO Not Use Split Influenza Virus Vaccine 22564 Given 08/31/2000 Influenza Immunization 59931 Given 08/31/2000 DO Not Use Split Influenza [...] Range Note Influenza A & B 11/26/2019 [facility] Flu AB Disclaimer (SEE NOTE) 1 Request Influenza A Molecular Negative Negative Influenza B Molecular Negative Negative 2 Influenza A & B Request 10/25/2019 [facility] Flu AB Disclaimer (SEE NOTE) 3 Influenza A Molecular Negative Negative Influenza B Molecular Negative Negative 4 Iron And 08/01/2019 [facility] Iron Bind.Cap.(Tibc) 327 g/dL 250-450 5 [facility] [address] [place] [address] (607)- - Uibc 240 g/dL 111-343 Iron [...] >60 ml/min/1.73m^ >=60 Laboratory test 08/01/2019 Micah Mendenhall([facility]) Free T4 0.67 ng/dL Low 0.75-1.54 6 finding TSH 2.19 mIU/L 0.50-6.00 Vitamin B-12 362 pg/mL 230-1050 CBC Electronic a 08/01/2019 Micah Mendenhall([facility]) WBC 10.6 x10^3/UL High 4.0-10.0 RBC 3.08 x10^6/UL Low 3.93-6.00 HGB 10.1 g/dL Low 12.0-17.0 7 HCT 32 % Low 35-50 8 MCV 102.9 fL High 80.0-95.0 MCH 33.1 pg High 25.6-32.2 MCHC 32.2 g/dL 32.2-36.0 RDW-CV 19.6 % High 11.6-14.4 PLT 277 x10^3/UL 163-400 MPV 10.3 fL 9.4-12.4 Carlos# 8.13 x10^3/UL High 1.56-6.13 Lymph# 1.35 x10^3/UL 1.18-3.74 [place]# 0.89 x10^3/UL High 0.24-0.82 Eos # 0.1 x10^3/UL 0.0-0.5 Baso # 0.03 x10^3/UL 0.01-0.08 Carlos% 76.6 % High 34.0-70.0 Lymph % 12.7 % Low 20.0-52.0 [place]% 8.4 % 5.0-12.0 Eos% 1.3 % 0.7-7.0 Baso% 0.3 % 0.1-1.2 Laboratory test 08/01/2019 [facility] Brain Natural 24.5 pg/mL < 100 finding (607)- - Peptide D Dimer Quant (Fma) 717 ng/mL High 0.0-400 1 Suboptimal collection technique may reduce sensitivity of test. Refer to the [employer] Test Catalog for collection information: [email or web address] As with all diagnostic procedures, the laboratory results obtained should be used in conjunction with other clinical information available to the physician, including confirmation by another method, as applicable. 2 Dry Clipper Tender: [id number] 3 Suboptimal collection technique may reduce sensitivity of test. Refer to the [employer] Test Catalog for collection information: [email or web address] As with all diagnostic procedures, the laboratory results obtained should be used in conjunction with other clinical information available to the physician, including confirmation by another method, as applicable. 4 Dry Clipper Tender: [id number] 5 SERUM 6 RESULTS VERIFIED BY REPEAT ANALYSIS 7 RESULTS VERIFIED BY REPEAT ANALYSIS 8 RESULTS VERIFIED BY REPEAT ANALYSIS Procedures Date Code Description Status 08/26/2019 85467 Injection Subcutaneous Or Intramuscular Completed 08/01/2019 73857 Electrocardiogram Complete Completed Medical Devices Description No Information Available Encounters Type Date Location Provider Dx Diagnosis Office Visit 12/26/2019 11:20a Main Office Prasad Shah M.D. 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 of face Office Visit 09/05/2019 11:20a Main Office Prasad Shah J06.9 Acute upper M.D. respiratory infection, unspecified [...] of breath Assessments Date Code Description Provider 12/26/2019 M79.7 Fibromyalgia Prasad Shah M.D. 12/26/2019 [...] exertion Prasad Shah M.D. Plan of Treatment 12/26/2019 - Prasad Shah M.D.M79.7 FibromyalgiaNew Medication:Pregabalin 100 mg - take 1 to 2 capsules by mouth at bedtime for painComments:DECREASE GABAPENTIN TO BID FOR 1 WEEK AND START LYRICA 100 MG AT HS. AND THEN DECREASE GABAPENTIN TO ONCE A DAY AND INCREASE LYRICA TO TWO A DAYFOLLOW UP 2 [address] DYSON TO CONSIDER MEDICAL MARIJUANAFollow up: Followup: In 2 weeks.F20.3 Undifferentiated qvzorzvivhmrqY75.1 Generalized anxiety disorder Functional Status Description No Information Available Mental Status Description No Information Available Referrals Description No Information Available
--- OUTSIDE RECORDS SUMMARY | 2020-01-04 21:57 | XMS REPORT | Continuity of Care Document ---
:1970 External Reference #:[id number] Author Name Prasad Shah M.D. Address [address] [place] [address] Care Team Providers Name Role Phone Prasad Shah - Family Medicine Care Team Information Safety Admin Assistant [phone] Yvrose Augustine - Dermatology Care Team Information Safety Admin Assistant [phone] Problems Active Problems Provider Date Myalgia & [...] Prasad Shah M.D. Onset: 08/30/2012 Acute bronchitis Prasda Shah M.D. Onset: 08/30/2012 Cellulitis of oral [...] M.D. Onset: 02/15/2016 Acute stress disorder Prasad hSah M.D. Onset: 04/13/2016 Dysthymic disorder Prasad Shah [...] take 2 tablets on 15tabs B37.0 Prasad Klein 09/05/2019 100mg Tablets day one then 1 Blake Shah tablet daily for oral thrush Ondansetron take one tablet 30tabs Prasad Klein 08/28/2019 4mg Tablets by mouth four Margaret ShahDJuani Dispers times a day as needed for nausea Nystatin swish and swallow 180ml B37.0 Prasad Latoya 08/01/2019 000784Cepi/ML 5ml 4 times a day Blake Shah [...] Eszopiclone take 1 tablet by 30tabs Kurt Sue. 01/31/2019 3mg Tablets mouth at bedtime MD [...] food Ketoconazole apply to rash 30gm Prasad Klein 10/09/2017 2% Cream every day Midura, M.D. [...] Kurt Klein 2018 - tablets every 6 Ilion, 10/07/2019 300-30mg Tablets hours as needed for [...] Injection Injection Rocephrin 250 MG Nga Chin, INDUSTRIAL DIAMOND POLISHER 05/29/2019 Injection Injection Subcutaneous Or Nga Chin, INDUSTRIAL DIAMOND POLISHER 05/29/2019 Intramuscular Injection Injection Rocephrin 250 MG Nga Chin, INDUSTRIAL DIAMOND POLISHER 02/27/2019 Injection Injection Subcutaneous Or Nga Chin, INDUSTRIAL DIAMOND POLISHER 02/27/2019 Intramuscular Injection Injection Rocephrin 250 MG gNa Chin, INDUSTRIAL DIAMOND POLISHER 02/21/2019 Injection Injection Subcutaneous Or Nga Chin, INDUSTRIAL DIAMOND POLISHER 02/21/2019 Intramuscular Injection Immunizations CPT Code Status Date Vaccine Lot # [id number] Given 02/27/2019 Tdap Tetanus, W Pertussis 525NP 23323 Given 08/21/2005 DO Not Use Split Influenza Virus Vaccine 70358 Given 08/02/2001 Influenza Immunization 62502 Given 08/02/2001 DO Not Use Split Influenza Virus Vaccine 86930 Given 08/31/2000 Influenza Immunization 80433 Given 08/31/2000 DO Not Use Split Influenza [...] Note Influenza A & B 11/26/[place] [facility] [place] Disclaimer (SEE NOTE) 1 Request Influenza A Molecular Negative Negative Influenza B Molecular Negative Negative 2 Influenza A & B Request 10/25/2019 [facility] [place] AB Disclaimer (SEE NOTE) 3 Influenza A Molecular Negative Negative Influenza B Molecular Negative Negative 4 Iron And 08/01/2019 [facility] Iron Bind.Cap.(Tibc) 327 g/dL 250-450 5 [facility] [address] [place] [address] (607)- - Uibc 240 g/dL 111-343 Iron [...] >60 ml/min/1.73m^ >=60 Laboratory test 08/01/2019 Micah Mendenhall([facility]) Free T4 0.67 ng/dL Low 0.75-1.54 6 finding TSH 2.19 mIU/L 0.50-6.00 Vitamin B-12 362 pg/mL 230-1050 CBC Electronic a 08/01/2019 Micah Mendenhall([facility]) WBC 10.6 x10^3/UL High 4.0-10.0 RBC 3.08 x10^6/UL Low 3.93-6.00 HGB 10.1 g/dL Low 12.0-17.0 7 HCT 32 % Low 35-50 8 MCV 102.9 fL High 80.0-95.0 MCH 33.1 pg High 25.6-32.2 MCHC 32.2 g/dL 32.2-36.0 RDW-CV 19.6 % High 11.6-14.4 PLT 277 x10^3/UL 163-400 MPV 10.3 fL 9.4-12.4 Carlos# 8.13 x10^3/UL High 1.56-6.13 Lymph# 1.35 x10^3/UL 1.18-3.74 [place]# 0.89 x10^3/UL High 0.24-0.82 Eos # 0.1 x10^3/UL 0.0-0.5 Baso # 0.03 x10^3/UL 0.01-0.08 Carlos% 76.6 % High 34.0-70.0 Lymph % 12.7 % Low 20.0-52.0 [place]% 8.4 % 5.0-12.0 Eos% 1.3 % 0.7-7.0 Baso% 0.3 % 0.1-1.2 Laboratory test 08/01/2019 [facility] Brain Natural 24.5 pg/mL < 100 finding (607)- - Peptide D Dimer Quant (Fma) 717 ng/mL High 0.0-400 1 Suboptimal collection technique may reduce sensitivity of test. Refer to the [employer] Test Catalog for collection information: [email or web address] As with all diagnostic procedures, the laboratory results obtained should be used in conjunction with other clinical information available to the physician, including confirmation by another method, as applicable. 2 Tree Inspector: [id number] 3 Suboptimal collection technique may reduce sensitivity of test. Refer to the [employer] Test Catalog for collection information: [email or web address] As with all diagnostic procedures, the laboratory results obtained should be used in conjunction with other clinical information available to the physician, including confirmation by another method, as applicable. 4 Tree Inspector: [id number] 5 SERUM 6 RESULTS VERIFIED BY REPEAT ANALYSIS 7 RESULTS VERIFIED BY REPEAT ANALYSIS 8 RESULTS VERIFIED BY REPEAT ANALYSIS Procedures Date Code Description Status 08/26/2019 87810 Injection Subcutaneous Or Intramuscular Completed 08/01/2019 33158 Electrocardiogram Complete Completed Medical Devices Description No [...] Office Visit 09/05/2019 11:20a Main Office Prasad T. Midura, J06.9 Acute upper M.D. respiratory infection, unspecified [...] Prasad Shah M.D. 08/01/2019 R18.8 Ascites Prasad hSah M.D. 08/01/2019 B37.0 Candidiasis of mouth Prasad [...] to once daily.Follow up:Followup:. (Follow up)F20.3 Undifferentiated ncbtpbvumkmweQ32.1 Generalized anxiety disorder Functional Status Description No Information Available Mental Status Description No Information Available Referrals Description No Information Available
--- OUTSIDE RECORDS SUMMARY | 2020-01-04 21:57 | XMS REPORT | Continuity of Care Document ---
:1970 External Reference #:[id number] Author Name Prasad Shah M.D. Address [address] [place] [address] Care Team Providers Name Role Phone Prasad Shah - Family Medicine Care Team Information Talent Acquisition Sourcer [phone] Yvrose Augustine - Dermatology Care Team Information Talent Acquisition Sourcer Problems Active Problems Provider Date Myalgia & [...] mouth Blake Shah at bedtime for pain Doxycycline Hyclate 1 by mouth twice 20caps Prasad Klein 12/08/2019 100mg a day Blake Shah Capsules Hydrocodone-Acetaminop 1 by mouth four 120tabs Prasad Klein 10/08/2019 hen times a day as Margaret ShahDJuani 5-325mg Tablets needed pain Symbicort Inhale 2 Puffs By 10.2units Prasad Klein 09/22/2019 80-4.5mcg/Act Mouth Twice Daily Blake Shah Aerosol as Needed Fluconazole take 2 tablets on 15tabs B37.0 Prasad TJuani 09/05/2019 100mg Tablets day one then 1 Blake Shah tablet daily for oral thrush Ondansetron take one tablet 30tabs Prasad TJuani 08/28/2019 4mg Tablets by mouth four Alyssa MJuaniD. Dispers times a day as needed for nausea Nystatin swish and swallow 180ml B37.0 Prasad TJuani 08/01/2019 730766Qddg/ML 5ml 4 times a day Midura, M.D. Suspension for thrush Spironolactone/Hydroch 1 by mouth Once a 60tabs R60.1 Prasad TJuani 08/01/2019 lorothiazide day for fluid Midura, M.D. 25-25mg retention Tablets Tretinoin apply to affected 45units Prasad Klein 07/21/2019 0.05% Cream area at bedtime Midura, M.D. if needed Mupirocin apply topically 22gm S01.302A Nga Wright 03/08/2019 2% Ointment three times a day JOSE L Chin to affected area(s) Physical Therapy treatment and Prasad Klein 02/04/2019 evaluation right Pennieura, M.D. shoulder pain Eszopiclone take 1 tablet by 30tabs Kurt Klein 01/31/2019 3mg Tablets mouth at bedtime MD Amandeep as needed for sleep. Viagra take one tablet 30tabs Prasad Klein 11/25/2018 50mg Tablets by mouth 30 Midura, M.D. minutes prior to intercourse Cyclobenzaprine HCL take 1 tablet by 30tabs Prasad TJuani 09/05/2018 10mg mouth at bedtime Midura, M.D. Tablets as needed for muscle spasm Clonazepam 1 tab four times 120tabs Prasad T. 07/15/2018 1mg Tablets a day a day as Midura, M.D. needed Sumatriptan Succinate Take 1 Tablet By 9tabs Prasad Shah T 07/09/2018 Mouth Immediately 100mg Tablets May Repeat After 2 Hours Max Daily Dose 2 Tablets Sulfamethoxazole/Trime Take 1 Tablet By 60tabs J40 Prasad TJuani 07/06/2018 thoprim DS Mouth Skin Twice Midura, [...] HCL take 1 tablet by 120tabs Prasad Klein 09/15/2017 25mg mouth four times Midura, M.D. Tablets daily as needed for allergies Butalbital/Acetaminoph take 1 tablet by 120tabs G43.909 Prasad Klein 07/17/2017 en/Caffeine mouth every 4 Midura, M.D. [...] 1 by mouth every day 30tabs Prasad hSah, 180mg Tablets as needed for M.D. allergies Adderall 1 by mouth 3 times a Unknown 20mg Tablets day CBD Oil Unknown History Medications Acetaminophen-Codeine #3 take one to two 56tabs M79.7 Kurt TJuain 2018 - tablets every 6 MD Amandeep 10/07/2019 300-30mg Tablets hours as needed for pain Methylprednisolone as directed for 1Pack J20.9 Prasad Shah, 08/26/2019 - 4mg TBPK inflamation M.D. 09/05/2019 Symbicort inhale two 10.2units Prasad Shah, 07/29/2019 - 80-4.5mcg/Act Aerosol puffs by mouth M.D. 09/05/2019 twice a day as needed Medications Administered in Office Medication SIG Qnty Indications Ordering Provider Date Injection Rocephrin 250 MG Prasad Shah M.D. 08/26/2019 Injection Injection Subcutaneous Or Prasad Shah M.D. 08/26/2019 Intramuscular Injection Injection Rocephrin 250 MG Nga Chin, JOSE L 05/29/2019 Injection Injection Subcutaneous Or Nga Chin, MENTAL HEALTH NURSE PRACTITIONER 05/29/2019 Intramuscular Injection Injection Rocephrin 250 MG Nga Chin, MENTAL HEALTH NURSE PRACTITIONER 02/27/2019 Injection Injection Subcutaneous Or Nga Chin, MENTAL HEALTH NURSE PRACTITIONER 02/27/2019 Intramuscular Injection Injection Rocephrin 250 MG Nga Chin, JOSE L 02/21/2019 Injection Injection Subcutaneous Or Nga Chin, JOSE L 02/21/2019 Intramuscular Injection Immunizations CPT Code Status Date Vaccine Lot # [id number] Given 02/27/2019 Tdap Tetanus, W Pertussis 525NP 50109 Given 08/21/2005 DO Not Use Split Influenza Virus Vaccine 12830 Given 08/02/2001 Influenza Immunization 22711 Given 08/02/2001 DO Not Use Split Influenza Virus Vaccine 85373 Given 08/31/2000 Influenza Immunization 72217 Given 08/31/2000 DO Not Use Split Influenza [...] Range Note Influenza A & B 11/26/2019 [facility] [place] Disclaimer (SEE NOTE) 1 Request Influenza A Molecular Negative Negative Influenza B Molecular Negative Negative 2 Influenza A & B Request 10/25/2019 [facility] [place] AB Disclaimer (SEE NOTE) 3 Influenza A Molecular Negative Negative Influenza B Molecular Negative Negative 4 Iron And 08/01/2019 [facility] Iron Bind.Cap.(Tibc) 327 g/dL 250-450 5 [facility] [address] [place] [address] (607)- - Uibc 240 g/dL 111-343 Iron 87 g/dL 38-169 Iron Saturation 27 % 15-55 Comprehensive Metabolic 08/01/2019 Micah Za([facility] [place]) Sodium 140 mEq/L 134-149 Prof Potassium 5.4 [...] >60 ml/min/1.73m^ >=60 Laboratory test 08/01/2019 Micah Mendenhall([facility]) Free T4 0.67 ng/dL Low 0.75-1.54 6 finding TSH 2.19 mIU/L 0.50-6.00 Vitamin B-12 362 pg/mL 230-1050 CBC Electronic Fma 08/01/2019 Micah Za([facility]) WBC 10.6 x10^3/UL High 4.0-10.0 RBC 3.08 x10^6/UL Low 3.93-6.00 HGB 10.1 g/dL Low 12.0-17.0 7 HCT 32 % Low 35-50 8 MCV 102.9 fL High 80.0-95.0 MCH 33.1 pg High 25.6-32.2 MCHC 32.2 g/dL 32.2-36.0 RDW-CV 19.6 % High 11.6-14.4 PLT 277 x10^3/UL 163-400 MPV 10.3 fL 9.4-12.4 Carlos# 8.13 x10^3/UL High 1.56-6.13 Lymph# 1.35 x10^3/UL 1.18-3.74 [place]# 0.89 x10^3/UL High 0.24-0.82 Eos # 0.1 x10^3/UL 0.0-0.5 Baso # 0.03 x10^3/UL 0.01-0.08 Carlos% 76.6 % High 34.0-70.0 Lymph % 12.7 % Low 20.0-52.0 [place]% 8.4 % 5.0-12.0 Eos% 1.3 % 0.7-7.0 Baso% 0.3 % 0.1-1.2 Laboratory test 08/01/2019 [facility] Brain Natural 24.5 pg/mL < 100 finding (607)- - Peptide D Dimer Quant (Fma) 717 ng/mL High 0.0-400 1 Suboptimal collection technique may reduce sensitivity of test. Refer to the [employer] Test Catalog for collection information: [email or web address] As with all diagnostic procedures, the laboratory results obtained should be used in conjunction with other clinical information available to the physician, including confirmation by another method, as applicable. 2 Indoor Landscape Architect: [id number] 3 Suboptimal collection technique may reduce sensitivity of test. Refer to the [employer] Test Catalog for collection information: [email or web address] As with all diagnostic procedures, the laboratory results obtained should be used in conjunction with other clinical information available to the physician, including confirmation by another method, as applicable. 4 Indoor Landscape Architect: [id number] 5 SERUM 6 RESULTS VERIFIED BY REPEAT ANALYSIS 7 RESULTS VERIFIED BY REPEAT ANALYSIS 8 RESULTS VERIFIED BY REPEAT ANALYSIS Procedures Date Code Description Status 08/26/2019 34242 Injection Subcutaneous Or Intramuscular Completed 08/01/2019 24089 Electrocardiogram Complete Completed Medical Devices Description No Information Available Encounters Type Date Location Provider Dx Diagnosis Office Visit 12/26/2019 11:20a Main Office Prasad Shah M.D. M79.7 Fibromyalgia F20.3 Undifferentiated schizophrenia F41.1 Generalized anxiety disorder Office Visit 12/08/2019 11:40a Main Office Prasad Shah L02.01 Cutaneous abscess Blake of face Office [...] MARIJUANAFollow up: Followup: In 2 weeks.F20.3 Undifferentiated ossfcrlndtjeyG88.1 Generalized anxiety disorder Functional Status Description No Information Available Mental Status Description No Information Available Referrals Description No Information Available
[2020-01-04] MEDS ORDERED: clonazePAM TAB(*) 1 MG PO ONE (23:13)
--- NOTE | 2020-01-04 23:19 | ED ---
Psychiatric Complaint - HPI Summary HPI Summary: Patient is a 49 y/o M w/ Hx of anxiety presenting to [facility] with complaints of anxiety and fever. Fever has since resolved, patient's temperature is noted to be 99 F in the ED. However, he states that he is still anxious. Patient is prescribed klonopin and states that he ran out of this medication around one week ago. Medical records show that the patient was prescribed his klonopin at the end of November and he should not be out of this medication at this point. Patient admits that he has been taking too much of this medication. He is agreeable with receiving a one-time dose in the ED and following up with his PCP for medication refill. Home medications and allergies are reviewed. - History Of Current Complaint Chief Complaint: EDPsychosocial Time Seen by Provider: 01/04/20 23:11 Hx Obtained From: Patient Onset/Duration: Still Present - anxiety, Resolved - fever Timing: Constant Character: Anxious Associated Signs And Symptoms: Positive: Negative - Allergies/Home Medications Allergies/Adverse Reactions: Allergies Allergy/AdvReac Type Severity Reaction Status Date / Time Penicillins Allergy Unknown Verified 11/26/19 05:52 Reaction Details shellfish derived Allergy Unknown Verified 11/26/19 05:52 Reaction Details Home Medications: Home Medications Gabapentin TAB(NF) [Neurontin 600 mg TAB(NF)] 600 mg PO TID 12/18/16 [History Confirmed 11/26/19] Amphetamine MIXED SALT TAB* [Adderall TAB*] 20 mg PO TID 12/04/18 [History Confirmed 11/26/19] Cyclobenzaprine HCl 10 mg PO BEDTIME PRN 12/04/18 [History Confirmed 11/26/19] Butalb/Acetamin/Caff TAB* [Fioricet TAB*] 1 tab PO Q4H PRN 12/30/18 [History Confirmed 11/26/19] Hydrocodone/Acetaminophen [Hydrocodone-Acetamin 5-325 mg] 1 tab PO QID PRN 12/30 [History Confirmed 11/26/19] OLANZapine [Zyprexa Zydis] 5 mg PO BEDTIME 12/30/18 [History Confirmed 11/26/19] Sildenafil (NF) [Viagra (NF)] 50 mg PO ONCE PRN 12/30/18 [History Confirmed 08/06] Escitalopram * [Lexapro *] 20 mg PO DAILY 02/28/19 [History Confirmed 11/26/19] SUMAtriptan TAB* [Imitrex TAB*] 100 mg PO ONCE PRN MDD 2 tabs 02/28/19 [History Confirmed 11/26/19] Sulfamethox/Trimethoprim DS* [Bactrim DS 800/160 TAB*] 1 tab PO BID 04/21/19 [ History Confirmed 11/26/19] hydrOXYzine HCL TAB* [Atarax 25 MG TAB*] 25 mg PO QID PRN 04/21/19 [History Confirmed 11/26/19] Albuterol HFA INHALER* [Ventolin HFA Inhaler*] 2 puff INH Q6H PRN #1 mdi [Rx] Albuterol/Ipratropium NEB.[place]* [Duoneb (Albuterol 2.5 MG/Ipratropium 0.5 MG)] 1 neb INH Q6H PRN #30 neb.[place] 11/26/19 [Rx] Budesonide/Formote 80/4.5(NF) [Symbicort 80/4.5 (NF)] 2 puff INH BID PRN [History Confirmed 11/26/19] Cannabidiol (CBD) Extract (NF) [Epidiolex (NF)] 100 mg PO . DIRECTED 11/26/19 [History Confirmed 11/26/19] Eszopiclone (NF) [Lunesta (NF)] 3 mg PO BEDTIME PRN 11/26/19 [History Confirmed 11/26/19] Fexofenadine (NF) [Saniya 180 (NF)] 180 mg PO DAILY PRN 11/26/19 [History Confirmed 11/26/19] Fluconazole 100 MG TAB* [Diflucan 100 MG TAB*] 100 mg PO DAILY 11/26/19 [ History Confirmed 11/26/19] Ibuprofen TAB* [Motrin TAB* 800 MG] 800 mg PO TID PRN 11/26/19 [History Confirmed 11/26/19] Ketoconazole 2 % CREAM (NF) [Nizoral 2% CREAM (NF)] 1 applic TOPICAL DAILY 11/25 [History Confirmed 11/26/19] Mupirocin 2% OINT* [Bactroban 2 % Oint*] 1 applic TOPICAL TID 11/26/19 [History Confirmed 11/26/19] Nystatin SUSPENSION ORAL SYR* 5 ml SWISH SWAL QID 11/26/19 [History Confirmed ] OLANZapine [Zyprexa Zydis] 10 mg PO BID 11/26/19 [History Confirmed 11/26/19] Ondansetron ODT TAB* [Zofran 4 MG Odt TAB*] 4 mg PO QID PRN 11/26/19 [History Confirmed 11/26/19] Pantoprazole TAB * [Protonix TAB*] 40 mg PO DAILY PRN 11/26/19 [History Confirmed 11/26/19] Spironolactone/HCTZ 25-25 MG* [Aldactazide 25-25*] 1 tab PO DAILY 11/26/19 [ History Confirmed 11/26/19] Tretinoin/Emollient Base [Tretinoin Emollient] 0.05 % TOPICAL BEDTIME 11/26/19 [ History Confirmed 11/26/19] clonazePAM TAB(*) [Klonopin TAB(*)] 1 mg PO QID PRN 11/26/19 [History Confirmed 11/26/19] methylPREDNISolone [Medrol Dosepak 4 MG*] 0 mg PO .[employer]CTION #1 tab [Rx] PMH/Surg Hx/FS Hx/Imm Hx Endocrine/Hematology History: Denies: Hx Anticoagulant Therapy, Hx Diabetes, Hx Thyroid Disease Cardiovascular History: Denies: Hx Congestive Heart Failure, Hx Deep Vein Thrombosis, Hx Hypertension , Hx Myocardial Infarction, Hx Pacemaker/ICD Respiratory History: Reports: Hx Asthma - Albuterol inhaler episodically. Denies: Hx Chronic Obstructive Pulmonary Disease (COPD), Hx Lung Cancer, Hx Pneumonia, Hx Pulmonary Embolism GI History: Reports: Other GI Disorders - Hepatitis B Denies: Hx Gall Bladder Disease, Hx Gastrointestinal Bleed, Hx Ulcer, Hx Urosepsis History: Denies: Hx Kidney Stones, Hx Renal Disease Musculoskeletal History: Reports: Hx Fibromyalgia - 2006 ER visit for medication Sensory History: Reports: Hx Contacts or Glasses Denies: Hx Deafness, Hx Hearing Aid Opthamlomology History: Reports: Hx Contacts or Glasses Neurological History: Reports: Hx Headaches, Hx Migraine Denies: Hx Dementia, Hx Seizures, Hx Transient Ischemic Attacks (TIA) Psychiatric History: Reports: Hx Anxiety, Hx Attention Deficit Hyperactivity Disorder, Hx Depression, Hx Community Mental Health Tx - seen at [facility], Hx Schizophrenia Denies: Hx Eating Disorder, Hx Panic Disorder, Hx of Violent Episodes Against Others - Surgical History Surgery Procedure, Year, and Place: Appendectomy, HERNIA REPAIR Hx Anesthesia Reactions: No - Immunization History Date of Tetanus Vaccine: pt states w/in last 10 years Date of Influenza Vaccine: 2013 Infectious Disease History: No Infectious Disease History: Denies: Hx Clostridium Difficile, Hx Hepatitis, Hx Human Immunodeficiency Virus (HIV), Hx of Known/Suspected MRSA, Hx Shingles, Hx Tuberculosis, Hx Known/ Suspected VRE, Hx Known/Suspected VRSA, History Other Infectious Disease, Traveled Outside the [place] in Last 30 Days - Family History Known Family History: Positive: Hypertension, Other - Cancer in father. Mother has Alzheimers - Social History Alcohol Use: None Alcohol Amount: 1-2 a day, has desire to quit Hx Substance Use: Yes Substance Use Type: Reports: Marijuana Substance Use Comment - Amount & Last Used: Rarely Hx Tobacco Use: Yes Smoking Status (MU): Heavy Every Day Tobacco Smoker Type: Cigarettes Amount Used/How Often: 1 ppd Length of Time of Smoking/Using Tobacco: 25 years Have You Smoked in the Last Year: Yes Review of Systems Negative: Fever Positive: Anxious All Other Systems Reviewed And Are Negative: Yes Physical Exam - Summary Physical Exam Summary: Appearance: Well-appearing, Well-nourished, lying in bed comfortable Skin: Warm, dry, no obvious rash Eyes: sclera anicteric, no conjunctival pallor HENT: mucous membranes moist Neck: deferred Respiratory: No signs of respiratory distress Cardiovascular: Appears well perfused, pulses are nml Abdomen: deferred Musculoskeletal: Moving all 4 extremities without obvious discomfort Neurological: Awake and alert, mentation is normal, speech is fluent and appropriate Triage Information Reviewed: Yes Vital Signs On Initial Exam: Initial Vitals Temp Pulse Resp BP Pulse Ox 98.2 F 105 16 123/87 98 01/04/20 21:48 01/04/20 21:48 01/04/20 21:48 01/04/20 21:48 01/04/20 21:48 Vital Signs Reviewed: Yes Procedures - Sedation Patient Received Moderate/Deep Sedation with Procedure: No Diagnostics - Vital Signs Vital Signs Temp Pulse Resp BP Pulse Ox 01/04/20 21:48 98.2 F 105 16 123/87 98 - Laboratory Lab Statement: Any lab studies that have been ordered have been reviewed, and results considered in the medical decision making process. Course/Dx - Course Course Of Treatment: Patient is a 49 y/o M w/ Hx of anxiety presenting to [facility] with complaints of anxiety and fever. Fever has since resolved, patient's temperature is noted to be 99 F in the ED. However, he states that he is still anxious. Patient is prescribed klonopin and states that he ran out of this medication around one week ago. Medical records show that the patient was prescribed his klonopin at the end of November and he should not be out of this medication at this point. Patient admits that he has been taking too much of this medication. He is agreeable with receiving a one-time dose in the ED and following up with his PCP for medication refill. Patient received 1 mg Klonopin and was discharged to home. - Differential Dx/Clinical Impression Provider Diagnosis: Anxiety - Critical Care Time Critical Care Statement: Critical care time is provided exclusive of any time spent performing procedures. Discharge ED - Sign-Out/Discharge Documenting (check all that apply): Patient Departure - discharge - Discharge Plan Condition: Stable Disposition: HOME Patient Education Materials: Anxiety (ED) Referrals: Prasad Shah MD [Primary Care Provider] - Additional Instructions: PLEASE FOLLOW UP WITH YOUR PRIMARY CARE PHYSICIAN FOR MEDICATION REFILL. PLEASE RETURN TO ED FOR ANY NEW OR CONCERNING SYMPTOMS. - Billing Disposition and Condition Condition: STABLE Disposition: Home - Attestation Statements Document Initiated by Elinor: Yes Documenting Scribe: ALIX BELTRAN Provider For Whom Elinor is Documenting (Include Credential): YOHANNES JAIMES MD Scribe Attestation: ALIX Guajardo, scribed for YOHANNES JAIMES MD on 01/08/20 at 2106. Scribe Documentation Reviewed: Yes Provider Attestation: The documentation as recorded by the ALIX multani accurately reflects the service I personally performed and the decisions made by , YOHANNES JAIMES MD Status of Scribe Document: Viewed
== END 2020-01-04 23:38 | disposition home or self-care (01) ==
LOC: ED 21:46
DX: F41.9 Anxiety disorder, unspecified (principal); R50.9 Fever, unspecified; Z88.0 Allergy status to penicillin; F90.9 Attention-deficit hyperactivity disorder, unspecified type; F32.9 Major depressive disorder, single episode, unspecified; F17.210 Nicotine dependence, cigarettes, uncomplicated; Z79.899 Other long term (current) drug therapy
CPT/HCPCS: 99281; A9270-GY